=== PATIENT | female | born 1965 | race Caucasian/White ===

== ENCOUNTER 2019-01-08 20:09 | Emergency (ER) | payer OTHER, MEDICAID, SELFPAY ==
[2019-01-08 20:17] VITALS: BP 125/74; PULSE 91; RESP 22; TEMP 37.2; O2SAT 99
[2019-01-08 20:29] VITALS: BP 125/74; PULSE 91; RESP 22; TEMP 37.2; O2SAT 99
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
[2019-01-08 20:40] LABS: Add Manual Diff / Slide Review NO; Basophils Absolute Auto 0 /uL (0-100); Basophils Percent Auto 0.8 % (0-2); Eosinophils Absolute Auto 200 /uL (0-450); Eosinophils Percent Auto 2.5 % (2-4); Hematocrit 45.5 % (36-46); Hemoglobin 14.8 g/dL (12.0-16.0); Lymphocytes Absolute Auto 2400 /uL (1100-4500); Lymphocytes Percent Auto 38.6 % (25-40); Mean Corpuscular HGB Conc 32.6 % (30-36); Mean Corpuscular Hemoglobin 31.3 PG (26-34); Mean Corpuscular Volume 96.2 fL (80-100); Monocytes Absolute Auto 400 /uL (0-900); Monocytes Percent Auto 6.7 % (3-14); Neutrophils Absolute Auto 3300 /uL (1500-7000); Neutrophils Percent Auto 51.4 % (50-75); Platelet Count 239 X10^3/uL (150-400); Red Blood Cell Count 4.73 X10^6/uL (4.0-5.2); Red Cell Distribution Width 13.3 % (11.6-14.8); White Blood Cell Count 6.3 X10^3/uL (4.5-11.0)
[2019-01-08 20:52] LABS: Acetaminophen < 10 ug/mL (10-30); Alanine Aminotransferase 31 IU/L (9-52); Albumin 4.4 g/dL (3.5-5.0); Albumin Globulin Ratio 1.3 (1.0-2.8); Alkaline Phosphatase 85 U/L (38-126); Aspartate Aminotransferase 30 IU/L (14-36); BUN Creatinine Ratio 13.3 (6-22); Bilirubin Total 0.2 mg/dL (0.2-1.3); Blood Urea Nitrogen 8 mg/dL (7-17); Calcium 8.3 mg/dL (8.4-10.2); Carbon Dioxide 22 mmol/L (22-32); Chloride 108 mmol/L (98-107); Estimated Glomerular Filt Rate > 60.0 mL/min (>60); Ethanol (ETOH) 159 mg/dL; Globulin 3.4 g/dL (1.7-4.1); Glucose 86 mg/dL (70-100); HEMOLYSIS < 15 (0-50); Potassium 3.7 mmol/L (3.4-5.1); Salicylate < 1.0 mg/dL (<20); Sodium 145 mmol/L (137-145); Total Protein 7.8 g/dL (6.3-8.2)
--- NOTE | 2019-01-08 21:39 | PC.NURSE ---
Pt ambulated with steady gait back to pt room after giving urine specimen in bathroom. Pt was cooperative and apologized for her behavior earlier. Pt was given warm blanket and offered po hydration and snacks but declined.
[2019-01-08 22:07] LABS: Free T4, Direct Thyroxine 1.39 ng/dL (0.78-2.19)
[2019-01-08 22:12] LABS: Urine Amphetamines Positive (Negative); Urine Barbiturates Negative (Negative); Urine Benzodiazepines Negative (Negative); Urine Cocaine Negative (Negative); Urine MDMA Negative (Negative); Urine Methadone Negative (Negative); Urine Methamphetamines Negative (Negative); Urine Morphine/Opi cutoff 2000 Negative (Negative); Urine Oxycodone Negative (Negative); Urine Phencyclidine Negative (Negative); Urine Tetrahydrocannabinol Negative (Negative); Urine Tricyclic Antidepressant Negative (Negative)
[2019-01-08 22:19] LABS: Bacteria Urine Many (>30); Culture Indicated Urine Specimen Cultured; RBC Urine None Seen (0-5/HPF); Squamous Epithelial Cell Urine 0-1 /HPF (0-5/HPF); WBC Urine 0-1/HPF (0-5/HPF)
[2019-01-08 23:26] VITALS: BP 115/70; PULSE 81; RESP 18; TEMP 36.6; O2SAT 98
--- NOTE | 2019-01-08 23:40 | PC.NURSE ---
patient is clma and sleeping
--- NOTE | 2019-01-08 23:46 | PC.NURSE ---
patient is calm and trying to sleep
--- NOTE | 2019-01-09 | PC.NURSE ---
patient is released and calmly waiting on a cab
--- NOTE | 2019-01-09 00:14 | PC.NURSE ---
patient is discharged cab is here
== END 2019-01-09 00:15 | disposition home or self-care (01) ==
PROVIDERS: Emergency Provider Emergency Medicine; Family Provider Family Medicine; PCP Family Medicine
DX: F10.929 Alcohol use, unspecified with intoxication, unspecified (principal)
CPT/HCPCS: 80053; 80305; 80320; 80329; 81003; 81015; 81025; 84439; 84443; 85025; 87077; 87086; 87186; 99283; G0480

== ENCOUNTER → 2019-02-10 11:38 | Outpatient (CLI) | payer OTHER, MEDICAID, SELFPAY ==
[2019-02-10 13:08] LABS: Alanine Aminotransferase 28 IU/L (9-52); Albumin 4.3 g/dL (3.5-5.0); Albumin Globulin Ratio 1.4 (1.0-2.8); Alkaline Phosphatase 94 U/L (38-126); Aspartate Aminotransferase 25 IU/L (14-36); BUN Creatinine Ratio 15.7 (6-22); Bilirubin Total 0.8 mg/dL (0.2-1.3); Blood Urea Nitrogen 11 mg/dL (7-17); Calcium 10.1 mg/dL (8.4-10.2); Carbon Dioxide 30 mmol/L (22-32); Chloride 104 mmol/L (98-107); Estimated Glomerular Filt Rate > 60.0 mL/min (>60); Glucose 90 mg/dL (70-100); HEMOLYSIS < 15 (0-50); Sodium 141 mmol/L (137-145); Total Protein 7.3 g/dL (6.3-8.2)
[2019-02-10 13:23] LABS: Potassium 5.4 mmol/L (3.4-5.1)
[2019-02-10 13:38] LABS: TSH w/ Reflex to FT4 1.32 uIU/mL (0.47-4.68)
== END ==
PROVIDERS: PCP Family Medicine; Visit Provider Family Medicine
DX: Z51.81 Encounter for therapeutic drug level monitoring (principal); Z79.899 Other long term (current) drug therapy
CPT/HCPCS: 36415; 80053; 84443

== ENCOUNTER → 2019-02-28 10:33 | Outpatient (CLI) | payer OTHER, MEDICAID, SELFPAY ==
[2019-02-28 11:40] LABS: Lithium 0.5 mmol/L (0.6-1.2)
[2019-02-28 11:44] LABS: BUN Creatinine Ratio 14.3 (6-22); Blood Urea Nitrogen 10 mg/dL (7-17); Calcium 9.4 mg/dL (8.4-10.2); Carbon Dioxide 26 mmol/L (22-32); Chloride 106 mmol/L (98-107); Estimated Glomerular Filt Rate > 60.0 mL/min (>60); Glucose 80 mg/dL (70-100); HEMOLYSIS < 15 (0-50); Sodium 141 mmol/L (137-145)
[2019-02-28 11:46] LABS: Potassium 5.5 mmol/L (3.4-5.1)
[2019-02-28 12:12] LABS: TSH w/ Reflex to FT4 3.87 uIU/mL (0.47-4.68)
== END ==
PROVIDERS: PCP Family Medicine; Visit Provider Family Medicine
DX: F31.9 Bipolar disorder, unspecified (principal); Z79.899 Other long term (current) drug therapy
CPT/HCPCS: 36415; 80048; 80178; 84443

== ENCOUNTER → 2019-03-25 15:38 | Outpatient (CLI) | payer OTHER, MEDICAID, SELFPAY ==
[2019-03-25 16:20] LABS: BUN Creatinine Ratio 18.8 (6-22); Blood Urea Nitrogen 15 mg/dL (7-17); Calcium 9.4 mg/dL (8.4-10.2); Carbon Dioxide 27 mmol/L (22-32); Chloride 103 mmol/L (98-107); Estimated Glomerular Filt Rate > 60.0 mL/min (>60); Glucose 102 mg/dL (70-100); HEMOLYSIS < 15 (0-50); Potassium 4.5 mmol/L (3.4-5.1); Sodium 138 mmol/L (137-145)
[2019-03-25 17:57] LABS: Free T4, Direct Thyroxine 1.09 ng/dL (0.78-2.19)
[2019-03-25 18:11] LABS: Thyroid Stimulating Hormone 2.13 uIU/mL (0.47-4.68)
== END ==
PROVIDERS: PCP Family Medicine; Visit Provider Family Medicine
DX: F31.9 Bipolar disorder, unspecified (principal); Z79.899 Other long term (current) drug therapy
CPT/HCPCS: 36415; 80048; 84439; 84443; 84481

== ENCOUNTER 2019-04-07 09:57 | Day surgery (SDC) | payer OTHER, MEDICAID, SELFPAY ==
[2019-03-26 14:24] VITALS: BMI 29.3
[2019-04-07] VITALS (8 sets, daily range): BP systolic 98–131; BP diastolic 52–65; PULSE 50–76; RESP 12–20; TEMP 36.1–36.4; O2SAT 95–100; BMI 28.6
[2019-04-07] MEDS: LACTATED RINGERS 1,000 ML 100 ML IV ×2 (10:37→13:35)
--- NOTE | 2019-04-07 12:01 | PM.HP.1 ---
History of Present Illness Date Patient Seen: 04/07/19 Time Patient Seen: 12:01 Chief complaint: [id number] Narrative: The patient is a woman who had on a lump in her upper abdomen. Is chronic. She is here for repair of an incarcerated ventral hernia. Patient History Medical History Anxiety (Chronic ~2006) Asthma (Resolved) Chickenpox (Resolved ~1974) Ovarian cyst (Resolved ~1986) Surgical History History of removal of ovarian cyst (Resolved ~1985) Status post ORIF of fracture of ankle (Resolved ~1993) Tubal (Resolved ~1990) Anesthesia (Inactive) Status post delivery (~1986) Status post delivery (~1991) Family History Father Age: 87 Alcoholism Grandfather No problems noted. Grandmother No problems noted. Grandfather No problems noted. Grandmother No problems noted. Social History household members: family Smoking Status: Current every day smoker alcohol intake: current substance use type: does not use Family & Social History Family History Father Age: 87 Alcoholism Grandfather No problems noted. Grandmother No problems noted. Grandfather No problems noted. Grandmother No problems noted. Social History: household members family Tobacco & Substance use: Smoking Status Current every day smoker alcohol intake current Substance Use Type does not use Meds Home Medications Medication Instructions Recorded Confirmed Type albuterol sulfate [Ventolin HFA] 2 puff INH SEE INSTRUCTIONS PRN #1 05/24/17 02/18/19 Rx inh fluticasone propionate 1 spray INTRANASAL BID #16 gm 05/24/17 02/18/19 Rx polyethylene glycol 3350 [Miralax] 17 gm PO QDAY #1 can 08/01/17 02/18/19 Rx zolpidem 10 mg tablet 10 mg PO BEDTIME PRN #10 tab 02/10/19 02/18/19 Rx lithium carbonate 300 mg capsule 300 mg PO BID #60 cap 02/28/19 Rx Allergies Allergy/AdvReac Type Severity Reaction Status Date / Time No Known Drug Allergies Allergy Verified 04/07/19 10:39 Review of Systems Review of Systems All systems reviewed & are unremarkable except as noted in HPI and below Exam Vital Signs (past 8 hours): - 04/07/19 10:39 Temperature 97 F L Pulse Rate 50 L Respiratory Rate 20 Blood Pressure 98/58 L Pulse Oximetry 100 Oxygen Delivery Method Room Air Narrative Exam Narrative: No apparent distress. Lungs are clear to auscultation no rales or rhonchi heart regular rate and rhythm without murmur gallop. Abdomen is scaphoid and soft she has an incarcerated hernia between her umbilicus and xiphoid. Palpably mildly tender. No overlying redness. Patient is alert and oriented x3. Speech rate and content are appropriate. Assessment & Plan Assessment & Plan narrative: Ventral hernia for repair. I have discussed the procedure including possible use of mesh. Risks of bleeding infection recurrence discussed. She appears to understand wishes to proceed
--- NOTE | 2019-04-07 12:02 | PM.PREOP ---
Pre-operative Note Interval Note History & Physical reviewed/Exam performed by Physician: Yes Changes to H&P: No
[2019-04-07] MEDS: CEFAZOLIN 2 GM/100 ML FROZ.PIGGY IV (12:16)
--- NOTE | 2019-04-07 12:36 | SUR.OPER ---
Supine on padded OR bed, head on pillow, arms secured on padded arm boards at <90 degrees abduction, legs uncrossed, safety belt at thigh, tape over blanket over lower legs.
[2019-04-07] MEDS: BUPIVACAINE 0.5% (PF) VIAL 30 ML INJ (12:43)
--- NOTE | 2019-04-07 13:15 | PM.OP.1 ---
Operative Date/Time/Diagnoses Date of procedure: 04/07/19 Time of procedure: 13:00 Pre-op diagnosis: Incarcerated ventral hernia Post-op diagnosis: same Procedure & Clinicians Procedure: Primary repair of ventral incarcerated hernia Same procedure as scheduled: Yes Indications: Symptomatic hernia Surgeon: Urban Guy Click Yes if Unassisted: Yes Anesthesia Type: General Operative Notes Findings: Fat incarcerated in the hernia Closure Type: primary Specimen(s): none sent Estimated Blood Loss (mL): 5 Blood products transfused: none Procedure in detail: Patient was placed supine on the operating room table and underwent general LMA anesthesia. She was prepped and draped in the usual fashion. Local anesthetic was infiltrated and an incision made overlying the palpable hernia. It was dissected through subcu fat down to the hernia. The sac was opened and the contents were from surrounding edge of fascia and reduced. The fascial edge was cleared and repair undertaken. The defect was small and therefore did not attempt to place mesh. 1. Ethibond suture was used to repair the hernia. This was in interrupted [id number] sutures. Two were used. The subcu was closed with interrupted 3 0 Vicryl. The subcu was infiltrated with local anesthetic and the skin was closed with interrupted 4 0 Vicryl subcuticular stitches and Steri-Strips. Dressing was applied the patient was awakened extubated and taken recovery area in good condition. There were no apparent problems. Complications: none Condition: stable Disposition: PACU
[2019-04-07] MEDS: fentaNYL 100 MCG/2 ML INJ 50 MCG IV ×2 (13:17→13:24)
[2019-04-07] MEDS: OXYCODONE/ACETAMINOPHEN 5/325 TABLET 1 TAB PO (13:57)
== END 2019-04-07 14:26 | disposition home or self-care (01) ==
LOC: OR 09:58
PROVIDERS: PCP Family Medicine; Visit Provider Specialist
PROC: (CPT 49561; principal; 2019-04-07 12:00)
DX: K43.6 Other and unspecified ventral hernia with obstruction, without gangrene (principal); F41.9 Anxiety disorder, unspecified; J45.909 Unspecified asthma, uncomplicated
CPT/HCPCS: 49561; J0690; J1100; J2405; J2704; J3010

== ENCOUNTER → 2019-05-14 11:00 | Outpatient (CLI) | payer OTHER, MEDICAID, SELFPAY ==
[2019-05-14 12:15] LABS: Lithium 0.9 mmol/L (0.6-1.2)
[2019-05-14 12:17] LABS: BUN Creatinine Ratio 16.3 (6-22); Blood Urea Nitrogen 13 mg/dL (7-17); Calcium 9.5 mg/dL (8.4-10.2); Carbon Dioxide 29 mmol/L (22-32); Chloride 102 mmol/L (98-107); Estimated Glomerular Filt Rate > 60.0 mL/min (>60); Glucose 92 mg/dL (70-100); HEMOLYSIS < 15 (0-50); Sodium 140 mmol/L (137-145)
[2019-05-14 17:51] LABS: Free T4, Direct Thyroxine 0.95 ng/dL (0.78-2.19)
== END ==
PROVIDERS: PCP Family Medicine; Visit Provider Family Medicine
DX: F31.9 Bipolar disorder, unspecified (principal); Z79.899 Other long term (current) drug therapy; Z51.81 Encounter for therapeutic drug level monitoring
CPT/HCPCS: 36415; 80048; 80178; 84439; 84443

== ENCOUNTER → 2019-05-28 12:35 | Outpatient (CLI) | payer OTHER, MEDICAID, SELFPAY ==
[2019-05-28 13:30] LABS: BUN Creatinine Ratio 13.8 (6-22); Blood Urea Nitrogen 11 mg/dL (7-17); Calcium 9.8 mg/dL (8.4-10.2); Carbon Dioxide 28 mmol/L (22-32); Chloride 103 mmol/L (98-107); Estimated Glomerular Filt Rate > 60.0 mL/min (>60); Glucose 92 mg/dL (70-100); HEMOLYSIS < 15 (0-50); Potassium 4.9 mmol/L (3.4-5.1); Sodium 141 mmol/L (137-145)
[2019-05-28 13:54] LABS: Lithium 0.8 mmol/L (0.6-1.2)
[2019-05-28 14:11] LABS: Free T3, Triiodothyronine Free 2.74 pg/mL (2.77-5.27); Free T4, Direct Thyroxine 0.85 ng/dL (0.78-2.19)
== END ==
PROVIDERS: PCP Family Medicine; Visit Provider Family Medicine
DX: Z79.899 Other long term (current) drug therapy (principal)
CPT/HCPCS: 36415; 80048; 80178; 84439; 84443; 84481

== ENCOUNTER → 2019-06-24 14:50 | Outpatient (CLI) | payer OTHER, MEDICAID, SELFPAY ==
[2019-06-24 16:10] LABS: BUN Creatinine Ratio 18.6 (6-22); Blood Urea Nitrogen 13 mg/dL (7-17); Calcium 9.5 mg/dL (8.4-10.2); Carbon Dioxide 29 mmol/L (22-32); Chloride 101 mmol/L (98-107); Estimated Glomerular Filt Rate > 60.0 mL/min (>60); Glucose 83 mg/dL (70-100); HEMOLYSIS < 15 (0-50); Potassium 4.8 mmol/L (3.4-5.1); Sodium 140 mmol/L (137-145)
[2019-06-24 16:33] LABS: Free T3, Triiodothyronine Free 3.35 pg/mL (2.77-5.27); Free T4, Direct Thyroxine 1.05 ng/dL (0.78-2.19)
[2019-06-24 16:47] LABS: Thyroid Stimulating Hormone 3.49 uIU/mL (0.47-4.68)
[2019-06-27 13:36] LABS: Thyroid Peroxidase Antibodies 243 IU/mL (< 9)
[2019-06-29 15:04] LABS: Triiodothyronine T3 Reverse 16 ng/dL (8-25)
== END ==
PROVIDERS: Visit Provider Family Medicine
DX: E03.9 Hypothyroidism, unspecified (principal); Z79.899 Other long term (current) drug therapy
CPT/HCPCS: 36415; 80048; 84439; 84443; 84481; 84482; 86376

== ENCOUNTER → 2019-07-24 15:43 | Outpatient (CLI) | payer OTHER, MEDICAID, SELFPAY ==
[2019-07-24 17:08] LABS: BUN Creatinine Ratio 17.5 (6-22); Blood Urea Nitrogen 14 mg/dL (7-17); Calcium 9.6 mg/dL (8.4-10.2); Carbon Dioxide 28 mmol/L (22-32); Chloride 103 mmol/L (98-107); Estimated Glomerular Filt Rate > 60.0 mL/min (>60); Glucose 71 mg/dL (70-100); HEMOLYSIS < 15 (0-50); Potassium 4.6 mmol/L (3.4-5.1); Sodium 138 mmol/L (137-145)
[2019-07-24 18:14] LABS: Free T3, Triiodothyronine Free 2.71 pg/mL (2.77-5.27); Free T4, Direct Thyroxine 0.72 ng/dL (0.78-2.19)
[2019-07-24 18:28] LABS: Thyroid Stimulating Hormone 4.15 uIU/mL (0.47-4.68)
== END ==
PROVIDERS: Visit Provider Family Medicine
DX: E03.9 Hypothyroidism, unspecified (principal); Z79.899 Other long term (current) drug therapy
CPT/HCPCS: 36415; 80048; 84439; 84443; 84481

== ENCOUNTER → 2019-08-28 14:58 | Outpatient (CLI) | payer OTHER, MEDICAID, SELFPAY ==
[2019-08-28 16:52] LABS: Alanine Aminotransferase 22 IU/L (<35); Albumin 4.2 g/dL (3.5-5.0); Albumin Globulin Ratio 1.4 (1.0-2.8); Alkaline Phosphatase 84 U/L (38-126); Aspartate Aminotransferase 24 IU/L (14-36); BUN Creatinine Ratio 23.8 (6-22); Bilirubin Total 0.3 mg/dL (0.2-1.3); Blood Urea Nitrogen 19 mg/dL (7-17); Calcium 9.7 mg/dL (8.4-10.2); Carbon Dioxide 27 mmol/L (22-32); Chloride 104 mmol/L (98-107); Estimated Glomerular Filt Rate > 60.0 mL/min (>60); Globulin 2.9 g/dL (1.7-4.1); Glucose 79 mg/dL (70-100); HEMOLYSIS < 15 (0-50); Potassium 4.8 mmol/L (3.4-5.1); Sodium 140 mmol/L (137-145); Total Protein 7.1 g/dL (6.3-8.2)
[2019-08-28 17:08] LABS: Free T3, Triiodothyronine Free 2.88 pg/mL (2.77-5.27)
[2019-08-28 17:21] LABS: Thyroid Stimulating Hormone 2.03 uIU/mL (0.47-4.68)
[2019-08-30 16:07] LABS: Thyroid Peroxidase Antibodies 310 IU/mL (< 9)
== END ==
PROVIDERS: Visit Provider Family Medicine
DX: E03.9 Hypothyroidism, unspecified (principal); Z79.899 Other long term (current) drug therapy
CPT/HCPCS: 36415; 80053; 84439; 84443; 84481; 86376

== ENCOUNTER 2019-09-20 17:26 | Emergency (ER) | payer OTHER, MEDICAID, SELFPAY ==
[2019-09-20 17:30] VITALS: BP 114/63; PULSE 66; RESP 18; TEMP 35.8; O2SAT 100
--- NOTE | 2019-09-20 18:24 | ED_ITS ---
HPI - Dental/Oral General Chief complaint: Dental/Oral Stated complaint: dry mouth/ chemical tasting in mouth lt side Time Seen by Provider: 09/20/19 18:08 Source: patient Mode of arrival: Ambulatory Limitations: no limitations History of Present Illness HPI Narrative: 54-year-old female former smoker with history of bipolar presents with a chief complaint of a metallic taste in her mouth which has been present for least the past few days. She denies any new medications nor pain. Initially she presented to her dentist who performed a detailed examination glued [facility] imaging and states there is no dental cause of her symptoms, abscess or other. She does state that she has had some increasing epigastric discomfort and her symptoms seem to be worse when she lays flat. She denies any facial swelling or fever or chills. Onset (ago): day(s) Duration: constant Severity: moderate Relieving factors: nothing Exacerbating factors: other Treatment prior to arrival: none Related Data Home Medications Medication Instructions Recorded Confirmed lithium carbonate 300 mg capsule 300 mg PO BID 08/28/19 09/20/19 Previous Rx's Medication Instructions Recorded quetiapine 400 mg tablet See Rx Instructions PO BEDTIME #45 08/25/19 tab Allergies Allergy/AdvReac Type Severity Reaction Status Date / Time No Known Drug Allergies Allergy Verified 09/20/19 17:33 Review of Systems Constitutional Constitutional: Denies chills, Denies fatigue, Denies fever(s), Denies frequent falls, Denies lethargy and Denies weakness Eyes Eyes: Denies change in vision, Denies eye discharge, Denies irritation and Denies loss of vision ENT Ears, Nose, Mouth, and Throat: Denies change in voice, Denies dizziness, Denies neck pain, Denies sore throat and Denies throat swelling Comments: Metallic taste in mouth Cardiovascular Cardiovascular: Denies chest pain, Denies irregular heart rhythm, Denies lightheadedness, Denies palpitations, Denies dyspnea, Denies dyspnea on exertion and Denies orthopnea Respiratory Respiratory: Denies cough, Denies dyspnea, Denies dyspnea on exertion and Denies wheezing Gastrointestinal Gastrointestinal: Denies abdominal pain, Denies change in bowel habits, Denies diarrhea, Denies nausea and Denies vomiting Genitourinary Genitourinary: Denies hematuria, Denies flank pain, Denies urinary incontinence and Denies urinary urgency Musculoskeletal Musculoskeletal: Denies back pain, Denies muscle weakness, Denies neck pain, Denies numbness and Denies tingling Integumentary/Breasts Skin/Breast: Denies pruritus, Denies erythema, Denies rash and Denies wounds Neurologic Neurologic: Denies behavioral changes, Denies confusion, Denies dizziness, Denies frequent falls, Denies loss of vision, Denies numbness, Denies tingling and Denies weakness Psychiatric Psychiatric: Denies anxiety, Denies behavioral changes, Denies confusion, Denies depression, Denies homicidal ideation and Denies suicidal ideation Endocrine Endocrine: Denies fatigue, Denies flushing and Denies palpitations Hematologic/Lymphatic Hematologic/Lymphatic: Denies easy bruising Allergic/Immunologic Allergic/Immunologic: Denies urticaria, Denies throat swelling and Denies wheezing Patient History Medical History (Updated 09/20/19 @ 18:32 by Maciel Amin DO) Alcohol use disorder (Resolved) Anxiety (Chronic ~2006) Asthma (Resolved) Chickenpox (Resolved ~1974) Ovarian cyst (Resolved ~1986) Tobacco use disorder (Resolved) Tobacco use disorder, moderate, in early remission (Acute) Surgical History Anesthesia (Inactive) History of removal of ovarian cyst (Resolved ~1985) Status post delivery (~1986) Status post delivery (~1991) Status post ORIF of fracture of ankle (Resolved ~1993) Tubal (Resolved ~1990) Social History household members: family Smoking Status: Former smoker alcohol intake: current substance use type: does not use Smoking Status: Former smoker alcohol intake frequency: 0-2 drinks per day Substance Use Type: does not use Exam Narrative Exam Narrative: GEN: AOx3 and in mild distress EYES: Pupils are equal, round, and reactive to light and accommodation. Extraoccular muscles are intact bilaterally. There is no subconjunctival hemorrhage or exudate. ORAL: No intraoral infection, abscess, discoloration or other abnormal findings CHEST: Lungs are clear to auscultation bilaterally and free of wheezes, rales, or rhonchi. Heart rate is regular rhythm, there are no murmurs, clicks, rubs, or gallops. There is no chest wall tenderness. ABD: Abdomen is soft and nontender. There is no guarding or rebound. Bowel sounds are normal in all 4 quadrants. There is no mass or organomegaly. EXT: Full painless ROM of all extremities with no loss of sensation or strength. SKIN: Warm, pink, and dry. No erythema or rash Initial Vital Signs Initial Vital Signs: Vital Signs Temperature 96.5 F L 09/20/19 17:30 Pulse Rate 66 09/20/19 17:30 Respiratory Rate 18 09/20/19 17:30 Blood Pressure 114/63 09/20/19 17:30 Pulse Oximetry 100 09/20/19 17:30 Course Vital Signs Vital signs: Vital Signs - 8 hr 09/20/19 17:30 Temperature 96.5 F L Pulse Rate 66 Respiratory Rate 18 Blood Pressure 114/63 Pulse Oximetry 100 MDM - Dental/Oral MDM Narrative Medical decision making narrative: 54F with metallic taste and epigastric discomfort raises the question of exacerbation reflux. Patient does take lithium which may be playing a role. No sign of dental infection or abscess. Return precautions given and questions answered to her apparent satisfaction Discharge Plan Departure Patient Disposition: Home Clinical Impression: Acid reflux Qualifiers: Esophagitis presence: without esophagitis Qualified Code(s): K21.9 - Gastro- esophageal reflux disease without esophagitis Discharge Date/Time: 09/20/19 18:30 Instructions: DI for Gastroesophageal Reflux Disease (GERD) Activity Restrictions/Additional Instructions: *You have been diagnosed with [ metallic taste in mouth, likely from acid reflux or even your lithium] *What to do: *Take medications as directed: Consider over the counter antacid such as pepcid or zantac and avoid acidic foods as well as alcohol, nicotine, and caffeine *Follow up with your primary care provider in 2-3 days, call for an appointment. Let them know you were seen in the Emergency Department and that we ask that you be seen in follow up *Return to ER if you should have any new, worsening or concerning symptoms Prescriptions: No Action quetiapine [Seroquel] 400 mg tablet See Rx Instructions PO BEDTIME Qty: 45 RF: 1 lithium carbonate 300 mg capsule 300 mg PO BID RF: 0 Referrals: Zhanna Chavez DO [Primary Care Provider] -
--- NOTE | 2019-09-20 18:43 | PC.NURSE ---
states metallic taste in mouth. normal assessment
== END 2019-09-20 18:30 | disposition home or self-care (01) ==
PROVIDERS: Emergency Provider Emergency Medicine; PCP Family Medicine
DX: K21.9 Gastro-esophageal reflux disease without esophagitis (principal); R10.13 Epigastric pain; Z79.899 Other long term (current) drug therapy
CPT/HCPCS: 99281; 99282

== ENCOUNTER → 2020-03-23 09:11 | Outpatient (CLI) | payer OTHER, MEDICAID, SELFPAY ==
[2020-03-23 10:07] LABS: Hemoglobin A1C% w Est Avg Glu 5.3 % (4.0-6.0)
[2020-03-23 10:40] LABS: Alanine Aminotransferase 170 IU/L (<35); Albumin 4.3 g/dL (3.5-5.0); Albumin Globulin Ratio 1.4 (1.0-2.8); Alkaline Phosphatase 130 U/L (38-126); Aspartate Aminotransferase 104 IU/L (14-36); BUN Creatinine Ratio 23.3 (6-22); Bilirubin Total 0.4 mg/dL (0.2-1.3); Blood Urea Nitrogen 17 mg/dL (7-17); Calcium 9.8 mg/dL (8.4-10.2); Carbon Dioxide 28 mmol/L (22-32); Chloride 106 mmol/L (98-107); Cholesterol 172 mg/dL (140-199); Estimated Glomerular Filt Rate > 60.0 mL/min (>60); Globulin 3.1 g/dL (1.7-4.1); Glucose 95 mg/dL (70-100); HDL Cholesterol 80 mg/dL (40-60); HEMOLYSIS < 15 (0-50); LDL Cholesterol Calculated 63 mg/dL (<100); Potassium 4.9 mmol/L (3.4-5.1); Sodium 140 mmol/L (137-145); Total Protein 7.4 g/dL (6.3-8.2); Triglycerides 145 mg/dL (35-150)
[2020-03-23 10:58] LABS: Free T3, Triiodothyronine Free 2.39 pg/mL (2.77-5.27); Free T4, Direct Thyroxine 0.71 ng/dL (0.78-2.19)
[2020-03-23 11:15] LABS: Ferritin 28 ng/mL (11-264)
[2020-03-23 11:29] LABS: Vitamin B12 754 pg/mL (239-931)
[2020-03-29 08:11] LABS: Triiodothyronine T3 Reverse 15.4 ng/dL (9.2-24.1)
== END ==
PROVIDERS: PCP Family Medicine; Referring Provider Family Medicine; Visit Provider Family Medicine
DX: E03.9 Hypothyroidism, unspecified (principal); F10.21 Alcohol dependence, in remission; F31.9 Bipolar disorder, unspecified; Z79.899 Other long term (current) drug therapy
CPT/HCPCS: 36415; 80053; 80061; 82607; 82728; 83036; 84439; 84443; 84481; 84482

== ENCOUNTER 2020-04-28 15:41 | Emergency (ER) | payer OTHER, MEDICAID, SELFPAY ==
[2020-04-28] VITALS (9 sets, daily range): BP systolic 109–131; BP diastolic 54–62; PULSE 66–77; RESP 16–27; TEMP 36.4; O2SAT 97–100; BMI 29.9
[2020-04-28 17:02] LABS: Ur Creatinine Normal (Normal); Ur Specific Gravity Normal (Normal); Urine pH Normal (Normal)
[2020-04-28 17:03] LABS: UR Morphine/Opiate cutoff 300 Negative (Negative); Urine Amphetamines Negative (Negative); Urine Barbiturates Negative (Negative); Urine Benzodiazepines Negative (Negative); Urine Cocaine Negative (Negative); Urine MDMA Negative (Negative); Urine Methadone Negative (Negative); Urine Methamphetamines Negative (Negative); Urine Oxycodone Negative (Negative); Urine Phencyclidine Negative (Negative); Urine Tetrahydrocannabinol Negative (Negative); Urine Tricyclic Antidepressant Negative (Negative)
[2020-04-28 17:22] LABS: Add Manual Diff / Slide Review NO; Basophils Absolute Auto 100 /uL (0-100); Basophils Percent Auto 1.3 % (0-2); Eosinophils Absolute Auto 200 /uL (0-450); Eosinophils Percent Auto 3.2 % (2-4); Hematocrit 42.9 % (36-46); Hemoglobin 14.2 g/dL (12.0-16.0); Lymphocytes Absolute Auto 2400 /uL (1100-4500); Lymphocytes Percent Auto 34.8 % (25-40); Mean Corpuscular HGB Conc 33.1 % (30-36); Mean Corpuscular Hemoglobin 31.6 PG (26-34); Mean Corpuscular Volume 95.5 fL (80-100); Monocytes Absolute Auto 900 /uL (0-900); Monocytes Percent Auto 13.2 % (3-14); Neutrophils Absolute Auto 3200 /uL (1500-7000); Neutrophils Percent Auto 47.5 % (50-75); Platelet Count 247 X10^3/uL (150-400); Red Blood Cell Count 4.49 X10^6/uL (4.0-5.2); Red Cell Distribution Width 14.1 % (11.6-14.8); White Blood Cell Count 6.8 X10^3/uL (4.5-11.0)
--- NOTE | 2020-04-28 17:36 | PC.NURSE ---
APOLLO Chowdary in room speaking to patient
[2020-04-28 17:41] LABS: Acetaminophen < 10 ug/mL (10-30); Alanine Aminotransferase 80 IU/L (<35); Albumin 4.6 g/dL (3.5-5.0); Albumin Globulin Ratio 1.4 (1.0-2.8); Alkaline Phosphatase 126 U/L (38-126); Aspartate Aminotransferase 63 IU/L (14-36); BUN Creatinine Ratio 20.7 (6-22); Bilirubin Total 0.5 mg/dL (0.2-1.3); Blood Urea Nitrogen 17 mg/dL (7-17); Carbon Dioxide 25 mmol/L (22-32); Chloride 104 mmol/L (98-107); Estimated Glomerular Filt Rate > 60.0 mL/min (>60); Ethanol (ETOH) < 10 mg/dL; Globulin 3.4 g/dL (1.7-4.1); Glucose 103 mg/dL (70-100); HEMOLYSIS < 15 (0-50); Potassium 4.2 mmol/L (3.4-5.1); Salicylate < 1.0 mg/dL (<20); Sodium 136 mmol/L (137-145)
[2020-04-28 17:46] LABS: Lithium 0.4 mmol/L (0.6-1.2)
--- NOTE | 2020-04-28 17:53 | PC.NURSE ---
Pt ambulated to bathroom. Once back to the room pt became tearful and stated that she can't believe that she is here and this is like freaking suicide watch. Pt became agitated about the fact that she wont be home with her dog and that she has to stay in the hospital. Pt then requested something to help her sleep. Provider is aware
[2020-04-28] MEDS: LORazepam 0.5 MG TABLET 1 MG PO (18:01)
--- NOTE | 2020-04-28 18:01 | PC.NURSE ---
Poison control states this far out they wouldn't be worried about toxic levels.
--- NOTE | 2020-04-28 18:02 | PC.NURSE ---
Pt given PO ativan
[2020-04-28 18:21] LABS: Thyroid Stimulating Hormone 1.83 uIU/mL (0.47-4.68)
--- NOTE | 2020-04-28 18:49 | PC.NURSE ---
Johan Mobley on Pt 1:1 @ 18:45. Pt is calm and sitting up in bed
--- NOTE | 2020-04-28 18:51 | PC.NURSE ---
Pts father in the Rm at bedside talking with the Pt
[2020-04-28] MEDS: ONDANSETRON 4 MG ODT SL (19:12)
[2020-04-28] MEDS: hydrOXYzine pamoate 25 MG CAPSULE 50 MG PO (19:12)
--- NOTE | 2020-04-28 19:15 | PC.NURSE ---
Nurse in providing Anti nausea meds. Pt is talking to nurse and crying
--- NOTE | 2020-04-28 19:18 | PC.NURSE ---
Pt requesting to make a phone call to have someone help her Father get the Pts dog into the house
--- NOTE | 2020-04-28 19:26 | ED.OVERDOSE ---
HPI - Overdose <Judith Chowdary, MACHINE TACK PULLER-BC - Last Filed: 04/28/20 21:10> General Chief Complaint: Toxicology Problem Stated Complaint: took to much Lamictal Time Seen by Provider: 04/28/20 15:51 Source: patient Mode of arrival: Ambulatory Limitations: no limitations History of Present Illness HPI Narrative: The patient is a 54-year-old female with history of depression and bipolar who presents with a chief complaint of ?I took too much Lamictal.She states that she took it last night, took 550 mg pills between 10:00 p.m. and 5:00 a.m. in order to help herself sleep. She states that she has been able to sleep for at least 6 days at this point time, she received this new medication and thought it was for sleep. She denies any thoughts of hurting herself or anybody else. She denies any suicidal thoughts or suicidal ideations. She states that she loves her father and could never do that to him. She states she was sent from her primary care provider's office to have her ?heart checked after taking so much Lamictal. Poison Control was contacted by nursing, who states that the Lamictal because past. They state that the patient can be medically cleared now if there is no suicidal ideations. She may have a wide QRS on her EKG and needs to monitor for a rash. The patient presented denies any suicidal thoughts or ideations, though chart review illustrate that the patient tried to commit suicide last night by hanging. The patient repeatedly denied any thoughts of hurting herself or anybody else. Eventually the patient admitted that she ?took a rope last night and thought about attaching it to the banister. However she laughed because she did not think that the banister with jang and then she would fall. She denies any current thoughts of hurting herself, though admits that which she did last night was dangerous. She again denies any thoughts of hurting herself or anybody else, stating she wants to go home. She does state that she gets so tired sometimes and so frustrated with not being able to sleep that she has thoughts of hurting herself and that she ?feels crazy. Related Data Previous Rx's Medication Instructions Recorded levothyroxine 50 mcg tablet 50 mcg PO DAILY #90 tab 03/28/20 lithium carbonate 300 mg capsule 300 mg PO BID #60 cap 04/05/20 clonazepam 1 mg tablet 1 mg PO TID #10 tab 04/23/20 lamotrigine 100 mg tablet See Rx Instructions PO DAILY #49 04/23/20 tab Allergies Allergy/AdvReac Type Severity Reaction Status Date / Time No Known Drug Allergies Allergy Verified 04/23/20 09:47 Review of Systems <MARITA Diaz - Last Filed: 04/28/20 21:10> Review of Systems Narrative: GENERAL: Denies chills, fatigue, malaise, fever, sweats. HEENT: Denies sinus pain, ear pain, sore throat, difficulty swallowing, dizziness. RESPIRATORY: Denies dyspnea, cough, wheezing, hemoptysis, sputum. CARDIOVASCULAR: Denies chest pain, palpitations, orthopnea, edema, GASTROINTESTINAL: Denies nausea, vomiting, abdominal pain, diarrhea, constipation, melena. : Denies dysuria, frequency, incontinence, hematuria, urinary retention. MUSCULOSKELETAL: denies weakness, joint pain, or bony pain SKIN: Denies rash, skin lesions, or other NEUROLOGIC: Denies weakness, headache, numbness, change in speech, confusion, seizures, incoordination. PSYCHIATRIC: See HPI 12 point review of systems is negative except for those stated above Patient History <MARITA Diaz - Last Filed: 04/28/20 21:10> Medical History Alcohol use disorder (Resolved) Anxiety (Chronic ~2006) Asthma (Resolved) Chickenpox (Resolved ~1974) Ovarian cyst (Resolved ~1986) Tobacco use disorder (Resolved) Tobacco use disorder, moderate, in early remission (Acute) Surgical History Anesthesia (Inactive) History of removal of ovarian cyst (Resolved ~1985) Status post delivery (~1986) Status post delivery (~1991) Status post ORIF of fracture of ankle (Resolved ~1993) Tubal (Resolved ~1990) Family History Father Age: 88 Alcoholism Grandfather No problems noted. Grandmother No problems noted. Grandfather No problems noted. Grandmother No problems noted. Social History household members: family Smoking Status: Former smoker alcohol intake: current substance use type: does not use Smoking Status: Former smoker alcohol intake frequency: 0-2 drinks per day Substance Use Type: does not use Exam <MARITA Diaz - Last Filed: 04/28/20 21:10> Narrative Exam Narrative: GENERAL: This is a well-nourished, well-developed patient appears anxious HEAD: Atraumatic. Normocephalic. No temporal or scalp tenderness. EYES: Pupils equal round and reactive. Extraocular motions intact. No scleral icterus. No injection or drainage. ENT: Nose without bleeding, purulent drainage or septal hematoma. Throat without erythema, tonsillar hypertrophy or exudate. Uvula midline. Airway patent. NECK: Trachea midline. No JVD or lymphadenopathy. Supple, nontender, no meningeal signs. CARDIOVASCULAR: Regular rate and rhythm RESPIRATORY: Clear to auscultation. Breath sounds equal bilaterally. No wheezes, rales, or rhonchi. GASTROINTESTINAL: Abdomen soft, non-tender, nondistended. No hepato-splenomegaly, or palpable masses. No guarding. EXTREMITIES: No clubbing, cyanosis, or edema. No joint tenderness, effusion, or edema noted. BACK: Nontender without deformity or crepitance. No flank tenderness. NEURO: AOx3, pressured speech, tangential. Does endorse transit suicidal ideations. SKIN: No rash or erythema. Initial Vital Signs Initial Vital Signs: Vital Signs Temperature 97.5 F L 04/28/20 15:51 Pulse Rate 70 04/28/20 15:51 Respiratory Rate 20 04/28/20 15:51 Pulse Oximetry 99 04/28/20 15:51 <Zeeshan Mendoza MD - Last Filed: 04/29/20 00:01> Initial Vital Signs Initial Vital Signs: Vital Signs Temperature 97.5 F L 04/28/20 15:51 Pulse Rate 70 04/28/20 15:51 Respiratory Rate 20 04/28/20 15:51 Pulse Oximetry 99 04/28/20 15:51 Course <MARITA Diaz - Last Filed: 04/28/20 21:10> Orders Ordered: ED Orders 04/28/20 15:46 EKG-12 Lead Stat 04/28/20 16:43 Consult to [facility] [place] [facility] Support Technician Urgent 04/28/20 16:45 Urine Drug Screen, Rapid Stat 04/28/20 17:15 Acetaminophen Stat Complete Blood Count AUTO DIFF Stat Comprehensive Metabolic Panel Stat Ethanol (ETOH) Stat [place] Stat Salicylate Stat Thyroid Stimulating Hormone Stat Discontinued Medications Hydroxyzine Pamoate (Vistaril) 50 mg PO NOW ONE Stop: 04/28/20 18:47 Last Admin: 04/28/20 19:12 Dose: 50 mg Documented by: FRANKIE Lorazepam (Ativan) 1 mg PO NOW ONE Stop: 04/28/20 17:48 Last Admin: 04/28/20 18:01 Dose: 1 mg Documented by: UNIQUE Ondansetron HCl (Zofran Odt) 4 mg SL NOW ONE Stop: 04/28/20 18:47 Last Admin: 04/28/20 19:12 Dose: 4 mg Documented by: FRANKIE Consultations Consultation #1: I spoke with Dr Monreal, PCP and Dr. Ellington from Psychiatry who both recommend inpatient evaluation and stay for this patient, especially given the drastic measure that she took last night. Time: 16:30 Vital Signs Vital signs: Vital Signs - 8 hr 04/28/20 17:10 04/28/20 17:30 04/28/20 17:31 Pulse Rate 71 76 75 Respiratory Rate 22 22 18 Blood Pressure 112/54 L Pulse Oximetry 100 99 100 04/28/20 18:00 04/28/20 18:01 04/28/20 18:30 Pulse Rate 69 66 67 Respiratory Rate 19 20 16 Blood Pressure 131/58 L 109/59 L Pulse Oximetry 100 100 98 04/28/20 19:00 04/28/20 23:05 Pulse Rate 73 77 Respiratory Rate 27 H 16 Blood Pressure 120/58 L 118/62 Pulse Oximetry 99 97 <Zeeshan Mendoza MD - Last Filed: 04/29/20 00:01> Orders Ordered: ED Orders 04/28/20 15:46 EKG-12 Lead Stat 04/28/20 16:43 Consult to [facility] [place] System Support Technician Urgent 04/28/20 16:45 Urine Drug Screen, Rapid Stat 04/28/20 17:15 Acetaminophen Stat Complete Blood Count AUTO DIFF Stat Comprehensive Metabolic Panel Stat Ethanol (ETOH) Stat [place] Stat Salicylate Stat Thyroid Stimulating Hormone Stat Discontinued Medications Hydroxyzine Pamoate (Vistaril) 50 mg PO NOW ONE Stop: 04/28/20 18:47 Last Admin: 04/28/20 19:12 Dose: 50 mg Documented by: FRANKIE Lorazepam (Ativan) 1 mg PO NOW ONE Stop: 04/28/20 17:48 Last Admin: 04/28/20 18:01 Dose: 1 mg Documented by: UNIQUE Ondansetron HCl (Zofran Odt) 4 mg SL NOW ONE Stop: 04/28/20 18:47 Last Admin: 04/28/20 19:12 Dose: 4 mg Documented by: FRANKIE Reevaluation(s) Reevaluation #1: Spoke with patient regarding events of today and last night. She states that she denies denies denies any desire to hurt herself or others. She does not want to hang herself. She does not want to kill herself. She states that she loves her dog and her father too much. She states she took Lamictal in order to help her sleep because she has insomnia. She was just angry and was lashing out by having thoughts of hanging herself. Again, she denies denies wanting to hurt herself. Patient does have psychiatric provider. Does have good follow-up. She does not want to wait or talk to a family welfare social work professor in the morning. She desires discharge home. DCR has completed their evaluation and patient does not qualify to be held Time: 22:59 Consultations Consultation #1: DCR completed their assessment. Patient is not candidate to be placed on hold. HIRA has spoken with nursePayal, contract for safety was family attained Time: 22:59 Vital Signs Vital signs: Vital Signs - 8 hr 04/28/20 17:10 04/28/20 17:30 04/28/20 17:31 Pulse Rate 71 76 75 Respiratory Rate 22 22 18 Blood Pressure 112/54 L Pulse Oximetry 100 99 100 04/28/20 18:00 04/28/20 18:01 04/28/20 18:30 Pulse Rate 69 66 67 Respiratory Rate 19 20 16 Blood Pressure 131/58 L 109/59 L Pulse Oximetry 100 100 98 04/28/20 19:00 04/28/20 23:05 Pulse Rate 73 77 Respiratory Rate 27 H 16 Blood Pressure 120/58 L 118/62 Pulse Oximetry 99 97 MDM - Overdose <Judith ChowdaryLUIS ANGELP- - Last Filed: 04/28/20 21:10> Lab Data Result diagrams: 04/28/20 17:15 04/28/20 17:15 Labs: Lab Results 04/28/20 04/28/20 04/28/20 Range/Units 16:45 17:15 17:15 WBC 6.8 (4.5-11.0) X10^3/uL RBC 4.49 (4.0-5.2) X10^6/uL Hgb 14.2 (12.0-16.0) g/dL Hct 42.9 (36-46) % MCV 95.5 (80-100) fL MCH 31.6 (26-34) PG MCHC 33.1 (30-36) % RDW 14.1 (11.6-14.8) % Plt Count 247 (150-400) X10^3/uL Neut % (Auto) 47.5 L (50-75) % Lymph % (Auto) 34.8 (25-40) % Sevier % (Auto) 13.2 (3-14) % Eos % (Auto) 3.2 (2-4) % Baso % (Auto) 1.3 (0-2) % Neut # (Auto) 3200 (7164-6103) /uL Lymph # (Auto) 2400 (6013-7280) /uL Sevier # (Auto) 900 (0-900) /uL Eos # (Auto) 200 (0-450) /uL Baso # (Auto) 100 (0-100) /uL Sodium 136 L (137-145) mmol/L Potassium 4.2 (3.4-5.1) mmol/L Chloride 104 (98-107) mmol/L Carbon Dioxide 25 (22-32) mmol/L BUN 17 (7-17) mg/dL Creatinine 0.82 (0.52-1.04) mg/dL Estimated GFR > 60.0 (>60) mL/min BUN/Creatinine Ratio 20.7 (6-22) Glucose 103 H (70-100) mg/dL Calcium 9.0 (8.4-10.2) mg/dL Total Bilirubin 0.5 (0.2-1.3) mg/dL AST 63 H (14-36) IU/L ALT 80 H (<35) IU/L Alkaline Phosphatase 126 (38-126) U/L Total Protein 8.0 (6.3-8.2) g/dL Albumin 4.6 (3.5-5.0) g/dL Globulin 3.4 (1.7-4.1) g/dL Albumin/Globulin Ratio 1.4 (1.0-2.8) TSH (0.47-4.68) uIU/mL Salicylates < 1.0 (<20) mg/dL U Opiates 300ng/mL cut Negative (Negative) Ur Oxycodone Screen Negative (Negative) Urine Methadone Screen Negative (Negative) Acetaminophen < 10 L (10-30) ug/mL Ur Barbiturates Screen Negative (Negative) U Tricyclic Antidepress Negative (Negative) Ur Phencyclidine Scrn Negative (Negative) Ur Amphetamines Screen Negative (Negative) U Methamphetamines Scrn Negative (Negative) Ur MDMA Scrn (Ecstasy) Negative (Negative) U Benzodiazepines Scrn Negative (Negative) [place] (0.6-1.2) mmol/L Urine Cocaine Screen Negative (Negative) U Marijuana (THC) Screen Negative (Negative) Ethyl Alcohol < 10 ( - 10) mg/dL 04/28/20 Range/Units 17:15 WBC (4.5-11.0) X10^3/uL RBC (4.0-5.2) X10^6/uL Hgb (12.0-16.0) g/dL Hct (36-46) % MCV (80-100) fL MCH (26-34) PG MCHC (30-36) % RDW (11.6-14.8) % Plt Count (150-400) X10^3/uL Neut % (Auto) (50-75) % Lymph % (Auto) (25-40) % Sevier % (Auto) (3-14) % Eos % (Auto) (2-4) % Baso % (Auto) (0-2) % Neut # (Auto) (5732-7236) /uL Lymph # (Auto) (2741-7860) /uL Sevier # (Auto) (0-900) /uL Eos # (Auto) (0-450) /uL Baso # (Auto) (0-100) /uL Sodium (137-145) mmol/L Potassium (3.4-5.1) mmol/L Chloride (98-107) mmol/L Carbon Dioxide (22-32) mmol/L BUN (7-17) mg/dL Creatinine (0.52-1.04) mg/dL Estimated GFR (>60) mL/min BUN/Creatinine Ratio (6-22) Glucose (70-100) mg/dL Calcium (8.4-10.2) mg/dL Total Bilirubin (0.2-1.3) mg/dL AST (14-36) IU/L ALT (<35) IU/L Alkaline Phosphatase (38-126) U/L Total Protein (6.3-8.2) g/dL Albumin (3.5-5.0) g/dL Globulin (1.7-4.1) g/dL Albumin/Globulin Ratio (1.0-2.8) TSH 1.83 (0.47-4.68) uIU/mL Salicylates (<20) mg/dL U Opiates 300ng/mL cut (Negative) Ur Oxycodone Screen (Negative) Urine Methadone Screen (Negative) Acetaminophen (10-30) ug/mL Ur Barbiturates Screen (Negative) U Tricyclic Antidepress (Negative) Ur Phencyclidine Scrn (Negative) Ur Amphetamines Screen (Negative) U Methamphetamines Scrn (Negative) Ur MDMA Scrn (Ecstasy) (Negative) U Benzodiazepines Scrn (Negative) [place] 0.4 L (0.6-1.2) mmol/L Urine Cocaine Screen (Negative) U Marijuana (THC) Screen (Negative) Ethyl Alcohol ( - 10) mg/dL Urine Dip Bedside Urine Glucose Negative Bedside Urine Bilirubin - Negative Bedside Urine Ketone - Negative Urine Specific [place] 1.015 Bedside Urine Occult Blood - Negative Bedside Urine pH 6.0 Bedside Urine Protein - Negative Bedside Urine Urobilinogen - Negative Bedside Urine Nitrite - Negative Bedside Urine Leukocytes - Negative Esterase MDM Narrative Medical decision making narrative: The patient is a 54-year-old female who presents with a chief complaint of ?I took to much Lamictal. However chart review illustrate the patient tried to kill herself last night by hanging, which is especially concerning given her labile history, diagnosis, and the fact that she has multiple stories. I spoke with Dr. Ellington from psychiatry recommends that the patient have inpatient evaluation and treatment, which Dr. Chavez, the patient's PCP also agrees with. However the patient repeatedly wants to go home, so she was placed on one-to-one observation. The patient does comment that she ?took the rope but laughed because it was so long I would hit the ground.The patient remains tangential, pressured speech, on one-to-one. Paperwork was faxed to [facility]. Patient signed out to Dr. Mendoza at 9:00 p.m. with one-to-one in place. <Zeeshan Mendoza MD - Last Filed: 04/29/20 00:01> Lab Data Labs: Lab Results 04/28/20 04/28/20 04/28/20 Range/Units 16:45 17:15 17:15 WBC 6.8 (4.5-11.0) X10^3/uL RBC 4.49 (4.0-5.2) X10^6/uL Hgb 14.2 (12.0-16.0) g/dL Hct 42.9 (36-46) % MCV 95.5 (80-100) fL MCH 31.6 (26-34) PG MCHC 33.1 (30-36) % RDW 14.1 (11.6-14.8) % Plt Count 247 (150-400) X10^3/uL Neut % (Auto) 47.5 L (50-75) % Lymph % (Auto) 34.8 (25-40) % Sevier % (Auto) 13.2 (3-14) % Eos % (Auto) 3.2 (2-4) % Baso % (Auto) 1.3 (0-2) % Neut # (Auto) 3200 (8044-3319) /uL Lymph # (Auto) 2400 (0365-6755) /uL Sevier # (Auto) 900 (0-900) /uL Eos # (Auto) 200 (0-450) /uL Baso # (Auto) 100 (0-100) /uL Sodium 136 L (137-145) mmol/L Potassium 4.2 (3.4-5.1) mmol/L Chloride 104 (98-107) mmol/L Carbon Dioxide 25 (22-32) mmol/L BUN 17 (7-17) mg/dL Creatinine 0.82 (0.52-1.04) mg/dL Estimated GFR > 60.0 (>60) mL/min BUN/Creatinine Ratio 20.7 (6-22) Glucose 103 H (70-100) mg/dL Calcium 9.0 (8.4-10.2) mg/dL Total Bilirubin 0.5 (0.2-1.3) mg/dL AST 63 H (14-36) IU/L ALT 80 H (<35) IU/L Alkaline Phosphatase 126 (38-126) U/L Total Protein 8.0 (6.3-8.2) g/dL Albumin 4.6 (3.5-5.0) g/dL Globulin 3.4 (1.7-4.1) g/dL Albumin/Globulin Ratio 1.4 (1.0-2.8) TSH (0.47-4.68) uIU/mL Salicylates < 1.0 (<20) mg/dL U Opiates 300ng/mL cut Negative (Negative) Ur Oxycodone Screen Negative (Negative) Urine Methadone Screen Negative (Negative) Acetaminophen < 10 L (10-30) ug/mL Ur Barbiturates Screen Negative (Negative) U Tricyclic Antidepress Negative (Negative) Ur Phencyclidine Scrn Negative (Negative) Ur Amphetamines Screen Negative (Negative) U Methamphetamines Scrn Negative (Negative) Ur MDMA Scrn (Ecstasy) Negative (Negative) U Benzodiazepines Scrn Negative (Negative) [place] (0.6-1.2) mmol/L Urine Cocaine Screen Negative (Negative) U Marijuana (THC) Screen Negative (Negative) Ethyl Alcohol < 10 ( - 10) mg/dL 04/28/20 Range/Units 17:15 WBC (4.5-11.0) X10^3/uL RBC (4.0-5.2) X10^6/uL Hgb (12.0-16.0) g/dL Hct (36-46) % MCV (80-100) fL MCH (26-34) PG MCHC (30-36) % RDW (11.6-14.8) % Plt Count (150-400) X10^3/uL Neut % (Auto) (50-75) % Lymph % (Auto) (25-40) % Sevier % (Auto) (3-14) % Eos % (Auto) (2-4) % Baso % (Auto) (0-2) % Neut # (Auto) (3512-7926) /uL Lymph # (Auto) (6406-0812) /uL Sevier # (Auto) (0-900) /uL Eos # (Auto) (0-450) /uL Baso # (Auto) (0-100) /uL Sodium (137-145) mmol/L Potassium (3.4-5.1) mmol/L Chloride (98-107) mmol/L Carbon Dioxide (22-32) mmol/L BUN (7-17) mg/dL Creatinine (0.52-1.04) mg/dL Estimated GFR (>60) mL/min BUN/Creatinine Ratio (6-22) Glucose (70-100) mg/dL Calcium (8.4-10.2) mg/dL Total Bilirubin (0.2-1.3) mg/dL AST (14-36) IU/L ALT (<35) IU/L Alkaline Phosphatase (38-126) U/L Total Protein (6.3-8.2) g/dL Albumin (3.5-5.0) g/dL Globulin (1.7-4.1) g/dL Albumin/Globulin Ratio (1.0-2.8) TSH 1.83 (0.47-4.68) uIU/mL Salicylates (<20) mg/dL U Opiates 300ng/mL cut (Negative) Ur Oxycodone Screen (Negative) Urine Methadone Screen (Negative) Acetaminophen (10-30) ug/mL Ur Barbiturates Screen (Negative) U Tricyclic Antidepress (Negative) Ur Phencyclidine Scrn (Negative) Ur Amphetamines Screen (Negative) U Methamphetamines Scrn (Negative) Ur MDMA Scrn (Ecstasy) (Negative) U Benzodiazepines Scrn (Negative) [place] 0.4 L (0.6-1.2) mmol/L Urine Cocaine Screen (Negative) U Marijuana (THC) Screen (Negative) Ethyl Alcohol ( - 10) mg/dL Urine Dip Bedside Urine Glucose Negative Bedside Urine Bilirubin - Negative Bedside Urine Ketone - Negative Urine Specific [place] 1.015 Bedside Urine Occult Blood - Negative Bedside Urine pH 6.0 Bedside Urine Protein - Negative Bedside Urine Urobilinogen - Negative Bedside Urine Nitrite - Negative Bedside Urine Leukocytes - Negative Esterase MDM Narrative Medical decision making narrative: Sign-out from Judith manzano, awaiting DCR assessment. Disposition pending their evaluation. Currently patient denies denies any thoughts of hurting herself Discharge Plan Departure Patient Disposition: Home Clinical Impression: Bipolar 1 disorder, manic, mild Discharge Date/Time: 04/28/20 23:06 Instructions: DI for Bipolar Disorder Activity Restrictions/Additional Instructions: Only take your medications as instructed. Do not take more than instructed. See your therapist and psychiatrist and providers this week for recheck. Return immediately if worse or if any questions or concerns. Prescriptions: No Action levothyroxine 50 mcg tablet 50 mcg PO DAILY Qty: 90 RF: 0 lithium carbonate 300 mg capsule 300 mg PO BID Qty: 60 RF: 1 lamotrigine 100 mg tablet See Rx Instructions PO DAILY Qty: 49 RF: 0 clonazepam 1 mg tablet 1 mg PO TID Qty: 10 RF: 0 Referrals: Zhanna Chavez DO [Primary Care Provider] -
--- NOTE | 2020-04-28 19:29 | PC.NURSE ---
1600: Late entry. Spoke to Christina ChinoD at Poison Control regarding pt's ingestion of Lamictal 50mg x 5 tabs for 250mg total. States she took 1 tab around 2200, and took subsequent doses of 1 tab every few hours until around 0400 in attempt to go to sleep. Pt thought they were sleeping pills. Per Poison control, pt is outside the peak window for any harmful effects. Advised to obtain EKG for prolonged QT. Pt initially denies SI/HI. Upon further investigation of CREATIVE WRITER note from today, pt attempted to tie noose around neck and hang herself from her banister but states I knew the banister couldnt hold my weight so i knew it wasnt going to work also states i dont want to kill myself i have my father and my dog to take care of Judith Chowdary DNP made aware. CREATIVE WRITER consult ordered. Pt remains on cardiac monitoring at this time. Labs drawn. Medicated with Ativan for anxiousness. NAD.
--- NOTE | 2020-04-28 19:40 | PC.NURSE ---
Pt trying to call from , phone is not working
--- NOTE | 2020-04-28 19:49 | PC.NURSE ---
Pt talking to father on Nurse station Phone
--- NOTE | 2020-04-28 20:00 | PC.NURSE ---
Pt resting on gurney, preparing to sleep. Pt states I have had insomnia since I was a child, hopefully the meds help me sleep. Pt is in plesant mood after speaking with her father and getting someone to watch her dog for her.
--- NOTE | 2020-04-28 20:01 | PC.NURSE ---
CDR being paged out
--- NOTE | 2020-04-28 20:16 | PC.NURSE ---
Pt c/o having a headache. Pt provided warm blanket and cool cloth for Pt forehead. Nurse informed of Pt complaint of headache
--- NOTE | 2020-04-28 21:30 | PC.NURSE ---
Pt needed emesis bag. Pt used emesis bag
--- NOTE | 2020-04-28 21:45 | PC.NURSE ---
Pt on video call with DCR
--- NOTE | 2020-04-28 21:48 | PC.NURSE ---
Pt on the tablet for Zoom interview with Elan from DCR.
--- NOTE | 2020-04-28 21:54 | PC.NURSE ---
Pt just got off zoom call with Manav INIGUEZ. Pt verbally agrees to safety contract. DCR states that he will talk to DR about possible discharge. Pt currently vomiting due to chronic migraines. CLYDE burrows
--- NOTE | 2020-04-28 22:56 | PC.NURSE ---
in speaking with Pt
--- NOTE | 2020-04-28 22:59 | PC.NURSE ---
Spoke to Elan from D[facility]. reports pt does not qualify for involuntary placement and is refusing voluntary treatment. Elan and pt spoke about safety contract, continuing therapy, and close followup. Pt in agreement. awaiting fax from DCR outlining conversation. Dr Mendoza made aware and at bedside.
--- NOTE | 2020-04-28 23:00 | PC.NURSE ---
has finished speaking with Pt. Pt is getting dressed pending discharge
--- NOTE | 2020-04-28 23:04 | PC.NURSE ---
Pt has been discharged. End sitter 1:1
== END 2020-04-28 23:06 | disposition home or self-care (01) ==
PROVIDERS: Nurse Practitioner Family; Emergency Provider Emergency Medicine; PCP Family Medicine
DX: F31.11 Bipolar disorder, current episode manic without psychotic features, mild (principal); F31.10 Bipolar disorder, current episode manic without psychotic features, unspecified
CPT/HCPCS: 80053; 80178; 80305; 80320; 80329; 81003; 84443; 85025; 93005; 99284; G0480

== ENCOUNTER → 2020-05-04 16:00 | Outpatient (CLI) | payer OTHER, MEDICAID, SELFPAY ==
--- NOTE | 2020-05-04 16:02 | DI.RAD.S_ITS ---
PROCEDURE: XR CHEST 2V INDICATIONS: dry cough one week, dust inhalation TECHNIQUE: 2 views of the chest were acquired. COMPARISON: [facility], , CHEST 2 VIEW, 08/01/2016, 19:43. FINDINGS: Surgical changes and devices: None. Lungs and pleura: Lungs are relatively large in volume and show an interstitial prominence previously present. This may reflect a prior smoking history.. No pleural effusions or pneumothorax. Mediastinum: Mediastinal contours are normal. Heart size is normal. Bones and chest wall: No suspicious bony abnormalities. Soft tissues appear unremarkable. IMPRESSION: No focal pneumonia found but there is a mild interstitial prominence that may reflect a prior smoking history. Reported potential inhalation injury-allergic alveolitis also could produce this appearance. Dictated by: Go Robb M.D. on 05/04/2020 at 16:27 Approved by: Go Robb M.D. on 05/04/2020 at 16:28
== END ==
PROVIDERS: PCP Family Medicine; Referring Provider Nurse Practitioner; Visit Provider Nurse Practitioner
DX: R05 Cough (principal)
CPT/HCPCS: 71046

== ENCOUNTER 2020-06-07 15:50 | Emergency (ER) | payer OTHER, MEDICAID, SELFPAY ==
[2020-06-07] VITALS (7 sets, daily range): BP systolic 107–122; BP diastolic 59–68; PULSE 52–61; RESP 22; TEMP 36.3; O2SAT 99–100
--- NOTE | 2020-06-07 15:57 | DI.RAD.S_ITS ---
PROCEDURE: XR CHEST 1V INDICATIONS: chest pain TECHNIQUE: One view of the chest was acquired. COMPARISON: [facility], , XR CHEST 2V, 05/04/2020, 15:55. [facility], , CHEST 2 VIEW, 08/01/2016, 19:43. FINDINGS: Surgical changes and devices: None. Lungs and pleura: Lungs are clear. No pleural effusions or pneumothorax. Mediastinum: Mediastinal contours appear normal. Heart size is normal. Bones and chest wall: No suspicious bony lesions. Overlying soft tissues appear unremarkable. IMPRESSION: Normal for age, source of current chest pain symptoms is not seen. Dictated by: Go Robb M.D. on 06/07/2020 at 16:18 Approved by: Go Robb M.D. on 06/07/2020 at 16:19
--- NOTE | 2020-06-07 16:15 | DI.US.S_ITS ---
PROCEDURE: US PERIPH VENOUS LOW EXTREM LT INDICATIONS: SWELLING TECHNIQUE: Real-time imaging, as well as color and pulse Doppler interrogation, were performed of the lower extremity deep veins from the inguinal ligament to the popliteal fossa. COMPARISON: [facility], CR, XR CHEST 1V, 06/07/2020, 16:02. FINDINGS: The common femoral, femoral and popliteal veins are normally compressible, and free of intraluminal thrombus. Color and pulse Doppler demonstrate normal phasic intraluminal flow. There is normal augmentation response to distal compression maneuver. IMPRESSION: Negative for deep venous thrombosis. Dictated by: Kash Santos M.D. on 06/07/2020 at 15:54 Approved by: Kash Santos M.D. on 06/07/2020 at 15:54
[2020-06-07 16:18] LABS: Add Manual Diff / Slide Review NO; Basophils Absolute Auto 100 /uL (0-100); Basophils Percent Auto 0.7 % (0-2); Eosinophils Absolute Auto 100 /uL (0-450); Eosinophils Percent Auto 1.4 % (2-4); Hematocrit 42.9 % (36-46); Hemoglobin 14.4 g/dL (12.0-16.0); Lymphocytes Absolute Auto 2500 /uL (1100-4500); Lymphocytes Percent Auto 32.2 % (25-40); Mean Corpuscular HGB Conc 33.6 % (30-36); Mean Corpuscular Volume 95.2 fL (80-100); Monocytes Absolute Auto 600 /uL (0-900); Monocytes Percent Auto 7.6 % (3-14); Neutrophils Absolute Auto 4500 /uL (1500-7000); Neutrophils Percent Auto 58.1 % (50-75); Platelet Count 232 X10^3/uL (150-400); White Blood Cell Count 7.7 X10^3/uL (4.5-11.0)
--- NOTE | 2020-06-07 16:19 | ED_ITS ---
HPI - Chest Pain General Chief Complaint: Chest Pain Stated Complaint: Swelling On Left Side, Tightness In Chest Time Seen by Provider: 06/07/20 16:02 Source: patient Mode of arrival: Ambulatory Limitations: no limitations History of Present Illness HPI narrative: The patient is a 55-year-old who presents with left leg swelling. She did well to [place] 2 weeks ago since then she has had left leg swelling off and on. It does not seem to be related to elevation. She denies any chest pain or shortness of breath. She now states that today she had left hand swelling that came on suddenly but now seems to have resolved. She denies any fever or chills. No productive cough. Related Data Previous Rx's Medication Instructions Recorded lithium carbonate 300 mg capsule 300 mg PO BID #60 cap 04/05/20 albuterol sulfate 90 mcg/actuation 2 puff INHALATION Q6H PRN #8 gram 05/04/20 aerosol inhaler inhalational spacing device #1 each 05/04/20 levothyroxine 50 mcg tablet 50 mcg PO DAILY #90 tab 05/26/20 prazosin 2 mg capsule 2 mg PO BEDTIME #30 cap 05/26/20 ziprasidone HCl 80 mg capsule 80 mg PO QPM #30 cap 05/26/20 Allergies Allergy/AdvReac Type Severity Reaction Status Date / Time No Known Drug Allergies Allergy Verified 05/26/20 16:00 Review of Systems Review of Systems ROS Unobtainable: All systems reviewed & are unremarkable except as noted in HPI and below Constitutional Constitutional: Denies chills, Denies fever(s), Denies lethargy and Denies weakness Cardiovascular Cardiovascular: Reports as per HPI, Denies chest pain, Denies irregular heart rhythm, Reports leg edema, Denies lightheadedness, Denies palpitations, Denies dyspnea, Denies dyspnea on exertion and Denies orthopnea Respiratory Respiratory: Denies cough, Denies dyspnea, Denies dyspnea on exertion and Denies wheezing Gastrointestinal Gastrointestinal: Denies abdominal pain, Denies change in bowel habits, Denies diarrhea, Denies nausea and Denies vomiting Musculoskeletal Musculoskeletal: Reports system reviewed and no additional complaints, except as documented, Denies arthralgias and Denies joint swelling Integumentary/Breasts Skin/Breast: Denies pruritus, Denies erythema, Denies rash and Denies wounds Neurologic Neurologic: Denies weakness Endocrine Endocrine: Denies palpitations Allergic/Immunologic Allergic/Immunologic: Denies wheezing Patient History Medical History Alcohol use disorder (Resolved) Anxiety (Chronic ~2006) Asthma (Resolved) Chickenpox (Resolved ~1974) Nightmares (Acute) Ovarian cyst (Resolved ~1986) Tobacco use disorder (Resolved) Tobacco use disorder, moderate, in early remission (Acute) Surgical History Anesthesia (Inactive) History of removal of ovarian cyst (Resolved ~1985) Status post delivery (~1986) Status post delivery (~1991) Status post ORIF of fracture of ankle (Resolved ~1993) Tubal (Resolved ~1990) Family History Father Age: 88 Alcoholism Grandfather No problems noted. Grandmother No problems noted. Grandfather No problems noted. Grandmother No problems noted. Social History household members: family Smoking Status: Former smoker alcohol intake: current substance use type: does not use Smoking Status: Former smoker alcohol intake frequency: 0-2 drinks per day Substance Use Type: does not use Exam Initial Vital Signs Initial Vital Signs: Vital Signs Temperature 97.4 F L 06/07/20 16:08 Pulse Rate 57 L 06/07/20 16:08 Respiratory Rate 22 06/07/20 16:08 Blood Pressure 107/68 06/07/20 16:08 Pulse Oximetry 100 06/07/20 16:08 GENERAL: Alert pleasant female and in no acute distress. HEENT: Head atraumatic,EOMI, pupils reactive, face symmetric, moist mucous membranes CARDIOVASCULAR: Regular rate and rhythm without murmurs, rubs or gallops. RESPIRATORY: Breath sounds equal bilaterally, no wheezes rales or rhonchi. ABDOMEN: Soft, nontender. Normoactive bowel sounds all 4 quadrants. No guarding or rebound. EXTREMITIES: Normal range of motion, no clubbing. Mild left leg lower extremity edema no calf pain Neurovascularly intact NEUROLOGICAL: Alert and oriented x4.Normal gait and speech. Cranial nerves II through XII grossly intact. SKIN: Warm, dry, no laceration, no petechiae, no rashes or lesions. Course Orders Ordered: ED Orders 06/07/20 15:57 XR chest 1V Stat EKG-12 Lead Stat 06/07/20 16:05 Complete Blood Count AUTO DIFF Stat Comprehensive Metabolic Panel Stat Lipase Stat NT-proBNP (BNP-Adult 18+) Stat Partial Thromboplastin Time Stat Prothrombin Time INR Stat Troponin & CK Cardiac Panel Stat 06/07/20 16:15 US periph venous low extrem lt Stat Vital Signs Vital signs: Vital Signs - 8 hr 06/07/20 16:08 06/07/20 16:11 06/07/20 16:30 Temperature 97.4 F L Pulse Rate 57 L 61 52 L Respiratory Rate 22 Blood Pressure 107/68 Pulse Oximetry 100 99 100 06/07/20 17:00 Temperature Pulse Rate 53 L Respiratory Rate Blood Pressure Pulse Oximetry 99 MDM - Chest Pain Lab Data Attestation: I reviewed the patient's lab results. Result diagrams: 06/07/20 16:05 06/07/20 16:05 Labs: Lab Results 06/07/20 06/07/20 06/07/20 Range/Units 16:05 16:05 16:05 WBC 7.7 (4.5-11.0) X10^3/uL RBC 4.50 (4.0-5.2) X10^6/uL Hgb 14.4 (12.0-16.0) g/dL Hct 42.9 (36-46) % MCV 95.2 (80-100) fL MCH 32.0 (26-34) PG MCHC 33.6 (30-36) % RDW 14.0 (11.6-14.8) % Plt Count 232 (150-400) X10^3/uL Neut % (Auto) 58.1 (50-75) % Lymph % (Auto) 32.2 (25-40) % [place] % (Auto) 7.6 (3-14) % Eos % (Auto) 1.4 L (2-4) % Baso % (Auto) 0.7 (0-2) % Neut # (Auto) 4500 (9742-9046) /uL Lymph # (Auto) 2500 (2287-9779) /uL [place] # (Auto) 600 (0-900) /uL Eos # (Auto) 100 (0-450) /uL Baso # (Auto) 100 (0-100) /uL PT 11.4 (10.1-12.7) SECONDS INR 1.0 (0.9-1.3) APTT 30 (26.4-36.2) SECONDS Sodium 141 (137-145) mmol/L Potassium 4.0 (3.4-5.1) mmol/L Chloride 108 H (98-107) mmol/L Carbon Dioxide 28 (22-32) mmol/L BUN 13 (7-17) mg/dL Creatinine 0.97 (0.52-1.04) mg/dL Estimated GFR > 60.0 (>60) mL/min BUN/Creatinine Ratio 13.4 (6-22) Glucose 97 (70-100) mg/dL Calcium 9.3 (8.4-10.2) mg/dL Total Bilirubin 0.5 (0.2-1.3) mg/dL AST 57 H (14-36) IU/L ALT 53 H (<35) IU/L Alkaline Phosphatase 97 (38-126) U/L Total Creatine Kinase 74 (30-135) U/L CK-MB (CK-2) TNP CK-MB (CK-2) Rel Index TNP Troponin I < 0.012 (0.01-0.034) ng/mL NT-Pro-B Natriuret Pep (<125) pg/mL Total Protein 7.3 (6.3-8.2) g/dL Albumin 4.4 (3.5-5.0) g/dL Globulin 2.9 (1.7-4.1) g/dL Albumin/Globulin Ratio 1.5 (1.0-2.8) Lipase 94 (23-300) U/L 06/07/ Range/Units 16:05 WBC (4.5-11.0) X10^3/uL RBC (4.0-5.2) X10^6/uL Hgb (12.0-16.0) g/dL Hct (36-46) % MCV (80-100) fL MCH (26-34) PG MCHC (30-36) % RDW (11.6-14.8) % Plt Count (150-400) X10^3/uL Neut % (Auto) (50-75) % Lymph % (Auto) (25-40) % [place] % (Auto) (3-14) % Eos % (Auto) (2-4) % Baso % (Auto) (0-2) % Neut # (Auto) (0115-5079) /uL Lymph # (Auto) (4714-5646) /uL [place] # (Auto) (0-900) /uL Eos # (Auto) (0-450) /uL Baso # (Auto) (0-100) /uL PT (10.1-12.7) SECONDS INR (0.9-1.3) APTT (26.4-36.2) SECONDS Sodium (137-145) mmol/L Potassium (3.4-5.1) mmol/L Chloride (98-107) mmol/L Carbon Dioxide (22-32) mmol/L BUN (7-17) mg/dL Creatinine (0.52-1.04) mg/dL Estimated GFR (>60) mL/min BUN/Creatinine Ratio (6-22) Glucose (70-100) mg/dL Calcium (8.4-10.2) mg/dL Total Bilirubin (0.2-1.3) mg/dL AST (14-36) IU/L ALT (<35) IU/L Alkaline Phosphatase (38-126) U/L Total Creatine Kinase (30-135) U/L CK-MB (CK-2) CK-MB (CK-2) Rel Index Troponin I (0.01-0.034) ng/mL NT-Pro-B Natriuret Pep 68 (<125) pg/mL Total Protein (6.3-8.2) g/dL Albumin (3.5-5.0) g/dL Globulin (1.7-4.1) g/dL Albumin/Globulin Ratio (1.0-2.8) Lipase (23-300) U/L Imaging Data US - DVT: Radiologist's Impression: PROCEDURE: US PERIPH VENOUS LOW EXTREM LT INDICATIONS: SWELLING TECHNIQUE: Real-time imaging, as well as color and pulse Doppler interrogation, were performed of the lower extremity deep veins from the inguinal ligament to the popliteal fossa. COMPARISON: [facility], CR, XR CHEST 1V, 06/07/2020, 16:02. FINDINGS: The common femoral, femoral and popliteal veins are normally compressible, and free of intraluminal thrombus. Color and pulse Doppler demonstrate normal phasic intraluminal flow. There is normal augmentation response to distal compression maneuver. IMPRESSION: Negative for deep venous thrombosis. Dictated by: Kash Santos M.D. on 06/07/2020 at 15:54 Chest x-ray: Radiologist's Impression: PROCEDURE: XR CHEST 1V INDICATIONS: chest pain TECHNIQUE: One view of the chest was acquired. COMPARISON: [facility], , XR CHEST 2V, 05/04/2020, 15:55. [facility], CR, CHEST 2 VIEW, 08/01/2016, 19:43. FINDINGS: Surgical changes and devices: None. Lungs and pleura: Lungs are clear. No pleural effusions or pneumothorax. Mediastinum: Mediastinal contours appear normal. Heart size is normal. Bones and chest wall: No suspicious bony lesions. Overlying soft tissues appear unremarkable. IMPRESSION: Normal for age, source of current chest pain symptoms is not seen. Dictated by: Go Robb M.D. on 06/07/2020 at 16:18 Approved by: Go Robb M.D. on 06/07/2020 at 16:19 ECG Data Attestation: I personally reviewed and interpreted this ECG as follows: Prior ECG tracings: available for review Interpretation: Rhythm rate 57 p.r. interval 158 QRS [address] changes similar to previous EKG MDM Narrative Medical decision making narrative: At this time she has mild swelling of her left lower leg but no significant swelling in any other part of her body. BNP is negative no dyspnea complaints. At this time recommend outpatient follow-up Discharge Plan Departure Patient Disposition: Home Clinical Impression: Edema, peripheral Instructions: DI for Peripheral Edema-Unilateral Activity Restrictions/Additional Instructions: *You have been diagnosed with edema *What to do: At this time there is no evidence of significant water retention or blood clot. Recommend following up with her primary care provider *Continue to take medications as directed *Follow up with your primary care provider in 2-3 days *Return to ER if you should have increased swelling, weakness numbness tingling or shortness of breath or any new, worsening or concerning symptoms Prescriptions: No Action albuterol sulfate 90 mcg/actuation HFA aerosol inhaler 2 puff INHALATION Q6H PRN (Reason: shortness of breath or wheezing) Qty: 8 RF: 0 (DME) [employer] See Rx Instructions .ROUTE .MEDSUPPLY Qty: 1 RF: 0 prazosin 2 mg capsule 2 mg PO BEDTIME Qty: 30 RF: 1 ziprasidone HCl 80 mg capsule 80 mg PO QPM Qty: 30 RF: 1 levothyroxine 50 mcg tablet 50 mcg PO DAILY Qty: 90 RF: 0 lithium carbonate 300 mg capsule 300 mg PO BID Qty: 60 RF: 1 Referrals: Zhanna Chavez DO [Primary Care Provider] -
[2020-06-07 16:30] LABS: Prothrombin Time 11.4 SECONDS (10.1-12.7)
[2020-06-07 16:33] LABS: PTT Partial Thromboplastin Tim 30 SECONDS (26.4-36.2)
[2020-06-07 16:34] LABS: Alanine Aminotransferase 53 IU/L (<35); Albumin 4.4 g/dL (3.5-5.0); Albumin Globulin Ratio 1.5 (1.0-2.8); Alkaline Phosphatase 97 U/L (38-126); Aspartate Aminotransferase 57 IU/L (14-36); BUN Creatinine Ratio 13.4 (6-22); Bilirubin Total 0.5 mg/dL (0.2-1.3); Blood Urea Nitrogen 13 mg/dL (7-17); Calcium 9.3 mg/dL (8.4-10.2); Carbon Dioxide 28 mmol/L (22-32); Chloride 108 mmol/L (98-107); Creatine Kinase 74 U/L (30-135); Estimated Glomerular Filt Rate > 60.0 mL/min (>60); Globulin 2.9 g/dL (1.7-4.1); Glucose 97 mg/dL (70-100); HEMOLYSIS < 15 (0-50); Lipase 94 U/L (23-300); Sodium 141 mmol/L (137-145); Total Protein 7.3 g/dL (6.3-8.2)
[2020-06-07 16:46] LABS: Troponin I < 0.012 ng/mL (0.01-0.034)
[2020-06-07 17:34] LABS: NT-proBNP (BNP-Adult 18+) 68 pg/mL (<125)
== END 2020-06-07 17:53 | disposition home or self-care (01) ==
PROVIDERS: Emergency Provider Emergency Medicine; PCP Family Medicine
DX: R60.9 Edema, unspecified (principal)
CPT/HCPCS: 36415; 71045; 80053; 82550; 83690; 83880; 84484; 85025; 85610; 85730; 93005; 93971; 99284

== ENCOUNTER 2020-06-10 19:25 | Emergency (ER) | payer OTHER, MEDICAID, SELFPAY ==
[2020-06-10 19:46] VITALS: BP 137/63; PULSE 50; RESP 15; TEMP 36.9; O2SAT 100; BMI 33.3
== END 2020-06-10 19:55 | disposition left against medical advice (07) ==
PROVIDERS: Emergency Provider Emergency Medicine; PCP Family Medicine
CPT/HCPCS: 99281

== ENCOUNTER → 2020-06-11 11:41 | Outpatient (CLI) | payer OTHER, MEDICAID, SELFPAY ==
--- NOTE | 2020-06-11 11:44 | DI.RAD.S_ITS ---
PROCEDURE: XR LUMBAR SPINE 2-3V INDICATIONS: Low back and left radiculopathy no trauma TECHNIQUE: 3 views of the lumbar spine were acquired. COMPARISON: [facility], , ABDOMEN 1 VIEW, 08/10/2017, 10:02. FINDINGS: Bones: 5 [id number] vertebrae are present. There is normal bony alignment. No vertebral body compression fractures. No suspicious bony lesions. Mild multilevel disc degeneration and mild facet joint arthropathy at the L4-L5 and L5-S1 levels. Soft tissues: Overlying bowel gas pattern is normal. No suspicious soft tissue calcifications. IMPRESSION: 1. Mild multilevel spondylosis. 2. Right upper quadrant calcification which could represent a gallstone. If indicated, gallbladder ultrasound could be performed. Dictated by: Rajat CATALAN Interpreted: Chase Neal MD on 06/11/2020 at 13:10 Approved by: Chase Neal M.D. on 06/11/2020 at 17:03
--- NOTE | 2020-06-11 11:44 | DI.RAD.S_ITS ---
PROCEDURE: XR FEMUR LT MIN 2V INDICATIONS: left thigh pain no trauma TECHNIQUE: 2 views of the femur were acquired. COMPARISON: None. FINDINGS: Bones: No fractures or dislocations. No suspicious bony lesions. Soft tissues: No suspicious soft tissue calcifications or masses. IMPRESSION: No definite radiographic abnormality. If pain persists with conservative management, consider cross sectional imaging such as CT or MRI for further assessment. Dictated by: Rajat Fine [facility] Interpreted: Chase Neal MD on 06/11/2020 at 13:09 Approved by: Chase Neal M.D. on 06/11/2020 at 17:03
== END ==
PROVIDERS: PCP Family Medicine; Referring Provider Family Medicine; Visit Provider Family Medicine
DX: M54.5 Low back pain (principal); M79.605 Pain in left leg; R60.9 Edema, unspecified
CPT/HCPCS: 72100; 73552

== ENCOUNTER → 2020-06-14 10:35 | Outpatient (CLI) | payer OTHER, MEDICAID, SELFPAY ==
[2020-06-14 12:08] LABS: TSH w/ Reflex to FT4 3.46 uIU/mL (0.47-4.68)
[2020-06-16 21:07] LABS: ANA Screen, IFA Positive (.)
== END ==
PROVIDERS: PCP Family Medicine; Referring Provider Family Medicine; Visit Provider Family Medicine
DX: R60.0 Localized edema (principal)
CPT/HCPCS: 36415; 84443; 86038

== ENCOUNTER → 2020-06-25 10:38 | Outpatient (CLI) | payer OTHER, MEDICAID, SELFPAY ==
--- NOTE | 2020-06-25 10:39 | DI.CT.S_ITS ---
PROCEDURE: CT ABDOMEN W CON INDICATIONS: Upper abd mass of uncertain cause in area of prior hernia TECHNIQUE: After the administration of oral and intravenous contrast, 5 mm thick sections acquired from the diaphragms to the iliac crests. 5 mm thick coronal and sagittal reformats were acquired. For radiation dose reduction, the following was used: automated exposure control, adjustment of mA and/or kV according to patient size. COMPARISON: None. FINDINGS: Image quality: Excellent. Lung bases: Lung bases are clear. Heart size is normal. Solid organs: Liver is normal in size and enhancement. Gallbladder is not distended. Calcified gallstone. Biliary system is non dilated. Pancreas enhances normally. Spleen is normal in size and enhancement. No adrenal nodules. Kidneys are normal in size, without hydronephrosis. Peritoneum and bowel: Contrast enhanced bowel loops appear normal in caliber. No free fluid or air. Appendix partially visualized. Nodes and vessels: No retroperitoneal or mesenteric adenopathy by size criteria. Aorta and inferior vena cava are normal in size. Bones: No suspicious bony lesions. No vertebral body compression fractures. Miscellaneous: Small supraumbilical fat containing midline ventral abdominal wall hernia. The hernia neck measures 2.2 cm, (2/32). IMPRESSION: 1. Small supraumbilical fat containing ventral abdominal wall hernia. 2. Cholelithiasis. Dictated by: Gael Palacios M.D. on 06/25/2020 at 13:25 Approved by: Gael Palacios M.D. on 06/25/2020 at 13:36
== END ==
PROVIDERS: PCP Family Medicine; Referring Provider Family Medicine; Visit Provider Specialist
DX: K42.9 Umbilical hernia without obstruction or gangrene (principal); R22.2 Localized swelling, mass and lump, trunk; K80.20 Calculus of gallbladder without cholecystitis without obstruction
CPT/HCPCS: 74160; Q9967

== ENCOUNTER → 2020-07-02 13:40 | Outpatient (CLI) | payer OTHER, MEDICAID, SELFPAY ==
[2020-07-04 10:20] LABS: COVID19 Sendout Not Detected (Not Detect)
== END ==
PROVIDERS: PCP Family Medicine; Visit Provider Physician Assistant
DX: Z11.59 Encounter for screening for other viral diseases (principal)
CPT/HCPCS: 87635

== ENCOUNTER 2020-07-05 11:28 | Day surgery (SDC) | payer OTHER, MEDICAID, SELFPAY ==
[2020-07-02 12:43] VITALS: BMI 34.2
[2020-07-05] VITALS (9 sets, daily range): BP systolic 88–143; BP diastolic 56–72; PULSE 50–67; RESP 12–21; TEMP 36.6–36.8; O2SAT 98–100; BMI 33.4
[2020-07-05] MEDS: LACTATED RINGERS 1,000 ML 42 ML IV (12:09)
--- NOTE | 2020-07-05 12:33 | PM.HP.1 ---
History of Present Illness History of Present Illness Date Patient Seen: 07/05/20 Time Patient Seen: 12:33 Chief complaint: SDC Narrative: Patient is a woman who has lost a lot of weight. She had a hernia repaired in 2018 and it has recurred based on the CT scan and physical exam. She is brought in for repair. The 1st repair was done without mesh. Patient History Medical History Alcohol use disorder (Resolved) Anxiety (Chronic ~2006) Asthma (Resolved) Chickenpox (Resolved ~1974) Low back pain radiating to left leg (Chronic) Nightmares (Acute) Ovarian cyst (Resolved ~1986) Tobacco use disorder (Resolved) Tobacco use disorder, moderate, in early remission (Acute) Surgical History Anesthesia (Inactive) History of removal of ovarian cyst (Resolved ~1985) Hx of hernia repair (Acute 04/07/19) Status post delivery (~1986) Status post delivery (~1991) Status post ORIF of fracture of ankle (Resolved ~1993) Tubal (Resolved ~1990) Family & Social History Family History Father Age: 88 Alcoholism Grandfather No problems noted. Grandmother No problems noted. Grandfather No problems noted. Grandmother No problems noted. Social History: household members family Tobacco & Substance use: Smoking Status Current every day smoker alcohol intake current alcohol intake frequency a few times a week Substance Use Type marijuana Meds Home Medications and Allergies Home Medications Medication Instructions Recorded Confirmed Type lithium carbonate 300 mg capsule 300 mg PO BID #60 cap 04/05/20 07/05/20 Rx levothyroxine 50 mcg tablet 50 mcg PO DAILY #90 tab 05/26/20 07/05/20 Rx prazosin 2 mg capsule 2 mg PO BEDTIME #30 cap 05/26/20 07/05/20 Rx ziprasidone HCl 80 mg capsule 80 mg PO QPM #30 cap 05/26/20 07/05/20 Rx Allergies Allergy/AdvReac Type Severity Reaction Status Date / Time No Known Drug Allergies Allergy Verified 07/05/20 11:51 Review of Systems Review of Systems ROS: Yes All systems reviewed with the patient and are negative except as otherwise documented Exam Vital Signs (past 8 hours): - 07/05/20 11:59 Temperature 98.3 F Pulse Rate 57 L Respiratory Rate 17 Blood Pressure 98/64 Pulse Oximetry 98 Oxygen Delivery Method Room Air Narrative Exam Narrative: Cooperative no apparent distress. Lungs are clear to auscultation no rales or rhonchi. Heart regular rate and rhythm without murmur gallop. Abdomen is soft scaphoid nontender. She has lost weight. She has a hernia in the area of a prior incision in the upper abdomen mid abdomen. Alert and oriented x3. Assessment & Plan Assessment & Plan narrative: Recurrent ventral hernia for repair. I have discussed the procedure including risks of bleeding infection recurrence she appears to understand. We will probably use mesh to repair it this time.
--- NOTE | 2020-07-05 12:46 | PM.PREOP ---
Pre-operative Note COVID-19 COVID-19 status: Negative Result date/Date tested (Pos, Neg/Pending): 07/02/20 Interval Note History & Physical reviewed/Exam performed by Physician: Yes Changes to H&P: No
[2020-07-05] MEDS: CEFAZOLIN 2 GM/100 ML FROZ.PIGGY IV (13:21)
--- NOTE | 2020-07-05 13:25 | SUR.OPER ---
Supine on padded OR bed, head on pillow, arms secured on padded arm boards at <90 degrees abduction, legs uncrossed, safety belt at thigh, tape over blanket over lower legs.
[2020-07-05] MEDS: BUPIVACAINE 0.5% (PF) VIAL 30 ML INJ (13:28)
[2020-07-05] MEDS: fentaNYL 100 MCG/2 ML INJ IV ×2 (14:30→14:35)
[2020-07-05] MEDS: OXYCODONE/ACETAMINOPHEN 5/325 TABLET 1 TAB PO (14:40)
--- NOTE | 2020-07-05 14:41 | PM.OP.1 ---
Operative Date/Time/Diagnoses Date of procedure: 07/05/20 Time of procedure: 14:41 Pre-op diagnosis: Ventral hernia recurrence at. Post-op diagnosis: same Procedure & Clinicians Procedure: Repair with underlay and at and overlay of mesh Same procedure as scheduled: Yes Indications: Symptomatic recurrence of a hernia in the mid abdomen at the midline Surgeon: Urban Guy Certified Ophthalmic Technologist: Wes Monteiro Anesthesia Type: General Operative Notes Findings: 1 in wide defect close superior to inferior. 1.7 in diameter underlay of mesh followed by a an overlay of a piece of lightweight mesh 9 x 9 cm. Closure Type: primary Specimen(s): none sent Prosthetic devices, grafts, tissues, transplants, or devices: Mesh 2 different types Estimated Blood Loss (mL): 15 Blood products transfused: none Procedure in detail: The patient was placed supine on the operating room table underwent general LMA anesthesia. She was prepped and draped in the usual fashion. A vertical incision was made through an old scar in her upper mid abdomen and carried down to the level of the hernia sac. Hernia sac was from the surrounding subcu fat and the fascial edge identified. Hernia sac was from this and the tissues beneath the abdominal wall were dissected off of it. The fascial edge was cleared of extraneous tissue. A 1.7 in diameter circular mesh with a non adherent side was placed under the fascia and the fascia closed with [id number] and interrupted Ethibond sutures. The subcu fat was dissected off the underlying muscle fascia to create a space to fix mesh over the hernia. A piece of mesh was obtained and trimmed to approximately 9 x 9 cm and sutured with interrupted Ethibond into place grasping the anterior muscle fascia to secure the mesh at its edge. The subcu was closed with interrupted 3 0 Vicryl. The skin was closed a running 4 0 Vicryl subcuticular stitch in occasional 5 0 nylon sutures and Steri-Strips. Dressing was applied the patient was awakened extubated taken recovery room in good condition. Complications: none Post-operative Condition: stable Disposition: PACU
[2020-07-05] MEDS: MEPERIDINE 100 MG/ML INJ 25 MG IV (14:50)
== END 2020-07-05 15:35 | disposition home or self-care (01) ==
PROVIDERS: PCP Family Medicine; Referring Provider Family Medicine; Visit Provider Specialist
PROC: (CPT 49565; principal; 2020-07-05 12:45)
DX: K43.9 Ventral hernia without obstruction or gangrene (principal); E03.9 Hypothyroidism, unspecified; F31.9 Bipolar disorder, unspecified
CPT/HCPCS: 49565; 49568; C1781; J0690; J1100; J1885; J2175; J2250; J2405; J2704; J3010

== ENCOUNTER → 2020-08-13 10:13 | Outpatient (CLI) | payer OTHER, MEDICAID, SELFPAY ==
[2020-08-13 10:58] LABS: Lithium 0.5 mmol/L (0.6-1.2)
[2020-08-13 10:59] LABS: Alanine Aminotransferase 61 IU/L (<35); Albumin 4.4 g/dL (3.5-5.0); Albumin Globulin Ratio 1.3 (1.0-2.8); Alkaline Phosphatase 85 U/L (38-126); Aspartate Aminotransferase 54 IU/L (14-36); BUN Creatinine Ratio 15.4 (6-22); Bilirubin Total 0.6 mg/dL (0.2-1.3); Blood Urea Nitrogen 10 mg/dL (7-17); Calcium 9.3 mg/dL (8.4-10.2); Carbon Dioxide 28 mmol/L (22-32); Chloride 105 mmol/L (98-107); Estimated Glomerular Filt Rate > 60.0 mL/min (>60); Globulin 3.3 g/dL (1.7-4.1); Glucose 94 mg/dL (70-100); HEMOLYSIS 16 (0-50); Potassium 4.1 mmol/L (3.4-5.1); Sodium 137 mmol/L (137-145); Total Protein 7.7 g/dL (6.3-8.2)
[2020-08-13 11:33] LABS: TSH w/ Reflex to FT4 3.66 uIU/mL (0.47-4.68)
== END ==
PROVIDERS: PCP Family Medicine; Referring Provider Family Medicine; Visit Provider Family Medicine
DX: E03.2 Hypothyroidism due to medicaments and other exogenous substances (principal); F31.75 Bipolar disorder, in partial remission, most recent episode depressed; R79.89 Other specified abnormal findings of blood chemistry; Z79.899 Other long term (current) drug therapy
CPT/HCPCS: 36415; 80053; 80178; 84443

== ENCOUNTER 2020-10-01 19:37 | Emergency (ER) | payer OTHER, MEDICAID, SELFPAY ==
[2020-10-01 19:43] VITALS: BP 121/59; PULSE 79; RESP 18; TEMP 36.3; O2SAT 98; BMI 33.1
== END 2020-10-01 20:05 | disposition left against medical advice (07) ==
PROVIDERS: Emergency Provider Emergency Medicine; PCP Family Medicine
DX: R07.9 Chest pain, unspecified (principal)
CPT/HCPCS: 93005; 99281

== ENCOUNTER → 2020-11-10 09:29 | Outpatient (CLI) | payer OTHER, MEDICAID, SELFPAY ==
[2020-11-10 11:06] LABS: Alanine Aminotransferase 85 IU/L (<35); Albumin 4.5 g/dL (3.5-5.0); Albumin Globulin Ratio 1.3 (1.0-2.8); Alkaline Phosphatase 116 U/L (38-126); Aspartate Aminotransferase 66 IU/L (14-36); BUN Creatinine Ratio 17.6 (6-22); Bilirubin Total 0.7 mg/dL (0.2-1.3); Blood Urea Nitrogen 13 mg/dL (7-17); Calcium 9.8 mg/dL (8.4-10.2); Carbon Dioxide 29 mmol/L (22-32); Chloride 103 mmol/L (98-107); Estimated Glomerular Filt Rate > 60.0 mL/min (>60); Globulin 3.6 g/dL (1.7-4.1); Glucose 101 mg/dL (70-100); HEMOLYSIS < 15 (0-50); Lithium 0.7 mmol/L (0.6-1.2); Potassium 3.8 mmol/L (3.4-5.1); Sodium 139 mmol/L (137-145); Total Protein 8.1 g/dL (6.3-8.2)
[2020-11-10 11:36] LABS: TSH w/ Reflex to FT4 2.22 uIU/mL (0.47-4.68)
== END ==
PROVIDERS: PCP Family Medicine; Referring Provider Family Medicine; Visit Provider Family Medicine
DX: E03.2 Hypothyroidism due to medicaments and other exogenous substances (principal); R79.89 Other specified abnormal findings of blood chemistry; Z79.899 Other long term (current) drug therapy
CPT/HCPCS: 36415; 80053; 80178; 84443

== ENCOUNTER → 2021-02-01 09:05 | Outpatient (CLI) | payer OTHER, MEDICAID, SELFPAY ==
[2021-02-01 09:40] LABS: Add Manual Diff / Slide Review NO; Basophils Absolute Auto 100 /uL (0-100); Basophils Percent Auto 1.4 % (0-2); Eosinophils Absolute Auto 200 /uL (0-450); Eosinophils Percent Auto 4.3 % (2-4); Hematocrit 44.2 % (36-46); Hemoglobin 14.7 g/dL (12.0-16.0); Lymphocytes Absolute Auto 2100 /uL (1100-4500); Lymphocytes Percent Auto 43.8 % (25-40); Mean Corpuscular HGB Conc 33.4 % (30-36); Mean Corpuscular Hemoglobin 32.8 PG (26-34); Mean Corpuscular Volume 98.2 fL (80-100); Monocytes Absolute Auto 600 /uL (0-900); Monocytes Percent Auto 13.6 % (3-14); Neutrophils Absolute Auto 1700 /uL (1500-7000); Neutrophils Percent Auto 36.9 % (50-75); Platelet Count 125 X10^3/uL (150-400); Red Cell Distribution Width 13.3 % (11.6-14.8); White Blood Cell Count 4.7 X10^3/uL (4.5-11.0)
[2021-02-01 09:45] LABS: INR 1.1 (0.9-1.3); Prothrombin Time 12.7 SECONDS (10.1-12.7)
[2021-02-01 10:12] LABS: Alanine Aminotransferase 72 IU/L (<35); Albumin 3.7 g/dL (3.5-5.0); Albumin Globulin Ratio 1.2 (1.0-2.8); Alkaline Phosphatase 96 U/L (38-126); Aspartate Aminotransferase 63 IU/L (14-36); BUN Creatinine Ratio 17.9 (6-22); Bilirubin Total 0.5 mg/dL (0.2-1.3); Blood Urea Nitrogen 15 mg/dL (7-17); Calcium 9.3 mg/dL (8.4-10.2); Carbon Dioxide 26 mmol/L (22-32); Chloride 108 mmol/L (98-107); Estimated Glomerular Filt Rate > 60.0 mL/min (>60); Globulin 3.2 g/dL (1.7-4.1); Glucose 91 mg/dL (70-100); HEMOLYSIS < 15 (0-50); Lithium < 0.2 mmol/L (0.6-1.2); Potassium 4.4 mmol/L (3.4-5.1); Sodium 140 mmol/L (137-145); Total Protein 6.9 g/dL (6.3-8.2)
[2021-02-01 11:23] LABS: Free T4, Direct Thyroxine 0.88 ng/dL (0.78-2.19)
[2021-02-01 21:36] LABS: Valproic Acid (Depakene) Total 124 ug/mL (50-100)
== END ==
PROVIDERS: PCP Family Medicine; Referring Provider Family Medicine; Visit Provider Family Medicine
DX: E03.2 Hypothyroidism due to medicaments and other exogenous substances (principal); F31.75 Bipolar disorder, in partial remission, most recent episode depressed; R79.89 Other specified abnormal findings of blood chemistry; Z79.899 Other long term (current) drug therapy
CPT/HCPCS: 36415; 80053; 80164; 80178; 84439; 84443; 85025; 85610

== ENCOUNTER → 2021-02-23 10:21 | Outpatient (CLI) | payer OTHER, MEDICAID, SELFPAY ==
[2021-02-23 10:38] LABS: Add Manual Diff / Slide Review NO; Basophils Absolute Auto 100 /uL (0-100); Eosinophils Absolute Auto 300 /uL (0-450); Eosinophils Percent Auto 4.3 % (2-4); Hematocrit 44.4 % (36-46); Hemoglobin 14.9 g/dL (12.0-16.0); Lymphocytes Absolute Auto 2500 /uL (1100-4500); Lymphocytes Percent Auto 36.1 % (25-40); Mean Corpuscular HGB Conc 33.5 % (30-36); Mean Corpuscular Hemoglobin 33.1 PG (26-34); Mean Corpuscular Volume 98.7 fL (80-100); Monocytes Absolute Auto 700 /uL (0-900); Monocytes Percent Auto 10.2 % (3-14); Neutrophils Absolute Auto 3300 /uL (1500-7000); Neutrophils Percent Auto 48.4 % (50-75); Platelet Count 178 X10^3/uL (150-400); Red Cell Distribution Width 14.9 % (11.6-14.8); White Blood Cell Count 6.9 X10^3/uL (4.5-11.0)
[2021-02-24 07:36] LABS: Valproic Acid (Depakene) Total 55 ug/mL (50-100)
== END ==
PROVIDERS: PCP Family Medicine; Referring Provider Family Medicine; Visit Provider Family Medicine
DX: D69.6 Thrombocytopenia, unspecified (principal); Z79.899 Other long term (current) drug therapy
CPT/HCPCS: 36415; 80164; 85025

== ENCOUNTER → 2021-05-23 09:36 | Outpatient (CLI) | payer OTHER, MEDICAID, SELFPAY ==
[2021-05-23 10:08] LABS: Add Manual Diff / Slide Review NO; Basophils Absolute Auto 0 /uL (0-100); Basophils Percent Auto 0.7 % (0-2); Eosinophils Absolute Auto 100 /uL (0-450); Eosinophils Percent Auto 2.1 % (2-4); Hematocrit 42.2 % (36-46); Lymphocytes Absolute Auto 2200 /uL (1100-4500); Lymphocytes Percent Auto 40.5 % (25-40); Mean Corpuscular HGB Conc 33.1 % (30-36); Mean Corpuscular Hemoglobin 34.3 PG (26-34); Mean Corpuscular Volume 103.7 fL (80-100); Monocytes Absolute Auto 700 /uL (0-900); Monocytes Percent Auto 12.8 % (3-14); Neutrophils Absolute Auto 2400 /uL (1500-7000); Neutrophils Percent Auto 43.9 % (50-75); Platelet Count 179 X10^3/uL (150-400); Red Blood Cell Count 4.07 X10^6/uL (4.0-5.2); Red Cell Distribution Width 13.6 % (11.6-14.8); White Blood Cell Count 5.5 X10^3/uL (4.5-11.0)
[2021-05-23 10:29] LABS: Alanine Aminotransferase 65 IU/L (<35); Albumin 3.9 g/dL (3.5-5.0); Albumin Globulin Ratio 1.3 (1.0-2.8); Alkaline Phosphatase 70 U/L (38-126); Aspartate Aminotransferase 59 IU/L (14-36); Bilirubin Total 0.6 mg/dL (0.2-1.3); Blood Urea Nitrogen 14 mg/dL (7-17); Calcium 9.3 mg/dL (8.4-10.2); Carbon Dioxide 28 mmol/L (22-32); Chloride 108 mmol/L (98-107); Estimated Glomerular Filt Rate > 60.0 mL/min (>60); Globulin 3.1 g/dL (1.7-4.1); Glucose 91 mg/dL (70-100); HEMOLYSIS < 15 (0-50); Sodium 140 mmol/L (137-145)
[2021-05-23 11:22] LABS: TSH w/ Reflex to FT4 3.75 uIU/mL (0.47-4.68)
[2021-05-24 03:25] LABS: Valproic Acid (Depakene) Total 70 ug/mL (50-100)
== END ==
PROVIDERS: PCP Family Medicine; Referring Provider Family Medicine; Visit Provider Family Medicine
DX: E03.2 Hypothyroidism due to medicaments and other exogenous substances (principal); R79.89 Other specified abnormal findings of blood chemistry; Z79.899 Other long term (current) drug therapy
CPT/HCPCS: 36415; 80053; 80164; 84443; 85025

== ENCOUNTER → 2021-08-02 13:14 | Outpatient (CLI) | payer OTHER, MEDICAID, SELFPAY | PROVIDERS: PCP Family Medicine; Referring Provider Physician Assistant; Visit Provider Physician Assistant | DX: N34.3 Urethral syndrome, unspecified (principal) | CPT/HCPCS: 81002; 87086 ==

== ENCOUNTER → 2021-08-22 15:48 | Outpatient (CLI) | payer OTHER, MEDICAID, SELFPAY ==
[2021-08-22 16:30] LABS: Add Manual Diff / Slide Review NO; Basophils Absolute Auto 0 /uL (0-100); Basophils Percent Auto 0.6 % (0-2); Eosinophils Absolute Auto 200 /uL (0-450); Eosinophils Percent Auto 2.2 % (2-4); Hematocrit 42.2 % (36-46); Hemoglobin 14.4 g/dL (12.0-16.0); Lymphocytes Absolute Auto 3100 /uL (1100-4500); Lymphocytes Percent Auto 40.2 % (25-40); Mean Corpuscular Hemoglobin 33.8 PG (26-34); Mean Corpuscular Volume 99.5 fL (80-100); Monocytes Absolute Auto 700 /uL (0-900); Monocytes Percent Auto 9.6 % (3-14); Neutrophils Absolute Auto 3600 /uL (1500-7000); Neutrophils Percent Auto 47.4 % (50-75); Platelet Count 224 X10^3/uL (150-400); Red Blood Cell Count 4.25 X10^6/uL (4.0-5.2); Red Cell Distribution Width 12.9 % (11.6-14.8); White Blood Cell Count 7.7 X10^3/uL (4.5-11.0)
[2021-08-22 17:06] LABS: Lithium 0.6 mmol/L (0.6-1.2)
[2021-08-22 17:12] LABS: Alanine Aminotransferase 59 IU/L (<35); Albumin 4.2 g/dL (3.5-5.0); Albumin Globulin Ratio 1.3 (1.0-2.8); Alkaline Phosphatase 80 U/L (38-126); Aspartate Aminotransferase 54 IU/L (14-36); BUN Creatinine Ratio 27.3 (6-22); Bilirubin Total 0.6 mg/dL (0.2-1.3); Blood Urea Nitrogen 24 mg/dL (7-17); Calcium 9.2 mg/dL (8.4-10.2); Carbon Dioxide 28 mmol/L (22-32); Chloride 104 mmol/L (98-107); Estimated Glomerular Filt Rate > 60.0 mL/min (>60); Globulin 3.3 g/dL (1.7-4.1); Glucose 94 mg/dL (70-100); HEMOLYSIS < 15 (0-50); Potassium 4.3 mmol/L (3.4-5.1); Sodium 138 mmol/L (137-145); Total Protein 7.5 g/dL (6.3-8.2)
[2021-08-22 17:42] LABS: TSH w/ Reflex to FT4 1.33 uIU/mL (0.47-4.68)
[2021-08-22 18:01] LABS: Vitamin B12 748 pg/mL (239-931)
[2021-08-23 04:47] LABS: Valproic Acid (Depakene) Total 23 ug/mL (50-100)
== END ==
PROVIDERS: PCP Family Medicine; Referring Provider Family Medicine; Visit Provider Family Medicine
DX: D69.6 Thrombocytopenia, unspecified (principal); Z79.899 Other long term (current) drug therapy; E03.9 Hypothyroidism, unspecified; R79.89 Other specified abnormal findings of blood chemistry
CPT/HCPCS: 36415; 80053; 80164; 80178; 82607; 84443; 85025

== ENCOUNTER 2021-11-19 14:21 | Emergency (ER) | payer OTHER, MEDICAID, SELFPAY ==
[2021-11-19] VITALS (9 sets, daily range): BP systolic 118–152; BP diastolic 61–99; PULSE 58–76; RESP 14–25; TEMP 36.6–36.7; O2SAT 95–100; BMI 32.5
--- NOTE | 2021-11-19 14:27 | DI.RAD.S_ITS ---
PROCEDURE: XR CHEST 1V INDICATIONS: SOB, chest pain TECHNIQUE: One view of the chest was acquired. COMPARISON: [facility], CR, XR CHEST 1V, 06/07/2020, 16:02. FINDINGS: Surgical changes and devices: None. Lungs and pleura: Lungs are clear. No pleural effusions or pneumothorax. Mediastinum: Mediastinal contours appear normal. Heart size is normal. Bones and chest wall: No suspicious bony lesions. Overlying soft tissues appear unremarkable. IMPRESSION: No acute cardiopulmonary process demonstrated radiographically. Dictated by: Chase Neal M.D. on 11/19/2021 at 14:46 Approved by: Chase Neal M.D. on 11/19/2021 at 14:47
--- NOTE | 2021-11-19 14:35 | ED_ITS ---
HPI - SOB/Dyspnea General Chief Complaint: Shortness of Breath/Dyspnea Stated Complaint: sob, left lung tight, works with chemicals, cough Time Seen by Provider: 11/19/21 14:27 History of Present Illness HPI Narrative: 56-year-old female with history of bipolar, insomnia and environmental allergies presents with a friend and a chief complaint of shortness of breath for many months. 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 She states that she has been having shortness of breath which is worse with a deep breath for quite some time. She has some left-sided lung pressure which has been present for many months as well. She denies any obvious provocation, palliation or radiation. She denies associated symptoms such as dizziness, weakness or lightheadedness. She denies nausea, vomiting or diarrhea. Related Data Home Medications Medication Instructions Recorded Confirmed methylphenidate HCl 10 mg tablet 10 mg PO BID 09/30/21 09/30/21 prazosin 1 mg capsule 1 mg PO TID cap 09/30/21 09/30/21 Previous Rx's Medication Instructions Recorded levothyroxine 88 mcg tablet 88 mcg PO DAILY #90 tab 05/23/21 lithium carbonate 300 mg capsule 300 mg PO BID #180 cap 08/04/21 Allergies Allergy/AdvReac Type Severity Reaction Status Date / Time No Known Drug Allergies Allergy Verified 09/30/21 16:05 Review of Systems Review of Systems Narrative: GENERAL: Denies chills, fatigue, malaise, fever, sweats. HEENT: Denies sinus pain, ear pain, sore throat, difficulty swallowing, dizziness. RESPIRATORY: See HPI CARDIOVASCULAR: See HPI GASTROINTESTINAL: Denies nausea, vomiting, abdominal pain, diarrhea, consti pation, melena. : Denies dysuria, frequency, incontinence, hematuria, urinary retention. MUSCULOSKELETAL: denies weakness, joint pain, or bony pain SKIN: Denies rash, skin lesions, or other NEUROLOGIC: Denies weakness, headache, numbness, change in speech, confusion, seizures, incoordination. PSYCHIATRIC: No concerning psychosocial issues. 12 point review of systems is negative except for those stated above Patient History Medical History Alcohol use disorder Anxiety (~2006) Asthma Chickenpox (~1974) Low back pain radiating to left leg Nightmares On valproic acid therapy Ovarian cyst (~1986) Tobacco use disorder Tobacco use disorder, moderate, in early remission Surgical History Anesthesia History of removal of ovarian cyst (~1985) Hx of hernia repair (04/07/19) Status post delivery (~1986) Status post delivery (~1991) Status post ORIF of fracture of ankle (~1993) Tubal (~1990) Family History Father Age: 89 Alcoholism Grandfather No problems noted. Grandmother No problems noted. Grandfather No problems noted. Grandmother No problems noted. Social History marital status: unknown household members: family occupational status: previously employed Smoking Status: Former smoker alcohol intake: current substance use type: does not use Smoking Status: Former smoker alcohol intake frequency: a few times a week Substance Use Type: marijuana Exam Narrative Exam Narrative: GENERAL: [56] year old patient appears stated age. Well-developed patient, in mild distress. HEAD: Atraumatic. Normocephalic. EYES: Pupils equal round and reactive. Extraocular motions intact. No scleral icterus. No injection or drainage. ENT: Nose without bleeding, purulent drainage. Throat without erythema, tonsillar hypertrophy or exudate. Airway patent. NECK: Trachea midline. Non tender CARDIOVASCULAR: Regular rate and rhythm without murmurs, gallops, or rubs. RESPIRATORY: Clear to auscultation. Breath sounds equal bilaterally. No wheezes, rales, or rhonchi. Deep breath illicits bronchospastic cough GASTROINTESTINAL: Abdomen soft, non-tender, nondistended. EXTREMITIES: No edema or joint tenderness. BACK: Nontender without deformity or crepitance. No flank tenderness. NEURO: AOx3. SKIN: No rash or erythema of visible areas Initial Vital Signs Initial Vital Signs: Vital Signs Pulse Rate 76 11/19/21 14:30 Pulse Oximetry 100 11/19/21 14:30 Course Orders Ordered: ED Orders 11/19/21 14:27 Chest [XR chest 1V] Stat 11/19/21 14:35 COVID19 -Nasal swab/Pre-Proc Stat 11/19/21 14:40 Complete Blood Count AUTO DIFF Stat Comprehensive Metabolic Panel Stat D Dimer Stat Magnesium Stat NT-proBNP (BNP-Adult 18+) Stat Troponin & CK Cardiac Panel Stat Sodium Chloride (Normal Saline 0.9%) 1,000 mls @ 125 mls/hr IV CONT [place] Last Infusion: 11/19/21 15:51 Dose: 0 mls/hr Documented by: Admin: 11/19/21 14:42 Dose: 125 mls/hr Documented by: LAMAR Discontinued Medications Albuterol/Ipratropium (Albuterol/Ipratropium 3 Ml Ampul) 3 ml INH NOW ONE Stop: 11/19/21 15:37 Last Admin: 11/19/21 15:47 Dose: 3 ml Documented by: CHRISTIE Methylprednisolone (Methylprednisolone 125 Mg/2 Ml Vial) 125 mg IV NOW ONE Stop: 11/19/21 14:28 Last Admin: 11/19/21 14:42 Dose: 125 mg Documented by: LAMAR Vital Signs Vital signs: Vital Signs - 8 hr 11/19/21 14:30 11/19/21 14:31 11/19/21 14:33 Temperature 97.8 F Pulse Rate 76 66 64 Respiratory Rate 20 Blood Pressure 152/99 H 122/68 Pulse Oximetry 100 97 100 11/19/21 15:00 11/19/21 15:01 11/19/21 15:30 Temperature Pulse Rate 58 L 62 58 L Respiratory Rate 21 21 25 H Blood Pressure 125/68 118/61 Pulse Oximetry 100 100 98 11/19/21 15:48 Temperature Pulse Rate 62 Respiratory Rate 16 Blood Pressure Pulse Oximetry 97 MDM - SOB/Dyspnea Lab Data Result diagrams: 11/19/21 14:40 11/19/21 14:40 Labs: Lab Results 11/19/21 11/19/21 11/19/21 Range/Units 14:35 14:40 14:40 WBC 6.9 (4.5-11.0) X10^3/uL RBC 4.24 (4.0-5.2) X10^6/uL Hgb 13.9 (12.0-16.0) g/dL Hct 41.3 (36-46) % MCV 97.4 (80-100) fL MCH 32.7 (26-34) PG MCHC 33.6 (30-36) % RDW 12.7 (11.6-14.8) % Plt Count 176 (150-400) X10^3/uL Neut % (Auto) 52.8 (50-75) % Lymph % (Auto) 35.4 (25-40) % [place] % (Auto) 9.7 (3-14) % Eos % (Auto) 1.6 L (2-4) % Baso % (Auto) 0.5 (0-2) % Neut # (Auto) 3600 (3812-4165) /uL Lymph # (Auto) 2400 (5981-5157) /uL [place] # (Auto) 700 (0-900) /uL Eos # (Auto) 100 (0-450) /uL Baso # (Auto) 0 (0-100) /uL D-Dimer < 200 (<230) ng/mL Sodium (137-145) mmol/L Potassium (3.4-5.1) mmol/L Chloride (98-107) mmol/L Carbon Dioxide (22-32) mmol/L BUN (7-17) mg/dL Creatinine (0.52-1.04) mg/dL Estimated GFR (>60) mL/min BUN/Creatinine Ratio (6-22) Glucose (70-100) mg/dL Calcium (8.4-10.2) mg/dL Magnesium (1.6-2.3) mg/dL Total Bilirubin (0.2-1.3) mg/dL AST (14-36) IU/L ALT (<35) IU/L Alkaline Phosphatase (38-126) U/L Total Creatine Kinase (30-135) U/L CK-MB (CK-2) CK-MB (CK-2) Rel Index Troponin I (0.01-0.034) ng/mL NT-Pro-B Natriuret Pep (<125) pg/mL Total Protein (6.3-8.2) g/dL Albumin (3.5-5.0) g/dL Globulin (1.7-4.1) g/dL Albumin/Globulin Ratio (1.0-2.8) SARS-CoV-2 (PCR) Negative (Negative) 11/19/21 Range/Units 14:40 WBC (4.5-11.0) X10^3/uL RBC (4.0-5.2) X10^6/uL Hgb (12.0-16.0) g/dL Hct (36-46) % MCV (80-100) fL MCH (26-34) PG MCHC (30-36) % RDW (11.6-14.8) % Plt Count (150-400) X10^3/uL Neut % (Auto) (50-75) % Lymph % (Auto) (25-40) % [place] % (Auto) (3-14) % Eos % (Auto) (2-4) % Baso % (Auto) (0-2) % Neut # (Auto) (1130-2750) /uL Lymph # (Auto) (9582-9095) /uL [place] # (Auto) (0-900) /uL Eos # (Auto) (0-450) /uL Baso # (Auto) (0-100) /uL D-Dimer (<230) ng/mL Sodium 135 L (137-145) mmol/L Potassium 4.4 (3.4-5.1) mmol/L Chloride 105 (98-107) mmol/L Carbon Dioxide 25 (22-32) mmol/L BUN 9 (7-17) mg/dL Creatinine 0.68 (0.52-1.04) mg/dL Estimated GFR > 60.0 (>60) mL/min BUN/Creatinine Ratio 13.2 (6-22) Glucose 92 (70-100) mg/dL Calcium 9.3 (8.4-10.2) mg/dL Magnesium 1.8 (1.6-2.3) mg/dL Total Bilirubin 0.6 (0.2-1.3) mg/dL AST 48 H (14-36) IU/L ALT 46 H (<35) IU/L Alkaline Phosphatase 71 (38-126) U/L Total Creatine Kinase 74 (30-135) U/L CK-MB (CK-2) TNP CK-MB (CK-2) Rel Index TNP Troponin I < 0.012 (0.01-0.034) ng/mL NT-Pro-B Natriuret Pep 25 (<125) pg/mL Total Protein 7.6 (6.3-8.2) g/dL Albumin 4.2 (3.5-5.0) g/dL Globulin 3.4 (1.7-4.1) g/dL Albumin/Globulin Ratio 1.2 (1.0-2.8) SARS-CoV-2 (PCR) (Negative) Imaging Data Chest x-ray: Radiologist's Impression: [address] [address] XRay Report Signed Patient: Nury Salmeron MR#: [id number] : 1965 Acct:[id number] Age/Sex: 56 / F Date of Service: 11/19/21 Loc: ED Accession Number: [id number] ?? Procedure: XR chest 1V Ordering Provider: Maciel Amin D.O. PROCEDURE:? XR CHEST 1V ? INDICATIONS:? SOB, chest pain ? TECHNIQUE:? One view of the chest was acquired.? ? COMPARISON:? [facility], CR, XR CHEST 1V, 06/07/2020, 16:02. ? FINDINGS:? ? Surgical changes and devices:? None.? ? Lungs and pleura:? Lungs are clear.? No pleural effusions or pneumothorax.? ? Mediastinum:? Mediastinal contours appear normal.? Heart size is normal.? ? Bones and chest wall:? No suspicious bony lesions.? Overlying soft tissues moy ear unremarkable.? ? IMPRESSION:? No acute cardiopulmonary process demonstrated radiographically. ? ? Dictated by: Chase Neal M.D. on 11/19/2021 at 14:46 ? ? Approved by: Chase Neal M.D. on 11/19/2021 at 14:47 ? Discharge Plan Departure Prescriptions: No Action lithium carbonate 300 mg capsule 300 mg PO BID Qty: 180 0RF levothyroxine 88 mcg tablet 88 mcg PO DAILY Qty: 90 1RF prazosin 1 mg capsule 1 mg PO TID 0RF methylphenidate HCl 10 mg tablet 10 mg PO BID 0RF Referrals: Zhanna Chavez DO [Primary Care Provider] -
[2021-11-19] MEDS: SODIUM CHLORIDE 0.9% 1,000 ML 125 ML IV (14:42)
[2021-11-19] MEDS: methylPREDNISolone 125 MG/2 ML VIAL IV (14:42)
[2021-11-19 14:53] LABS: Add Manual Diff / Slide Review NO; Basophils Absolute Auto 0 /uL (0-100); Basophils Percent Auto 0.5 % (0-2); Eosinophils Absolute Auto 100 /uL (0-450); Eosinophils Percent Auto 1.6 % (2-4); Hematocrit 41.3 % (36-46); Hemoglobin 13.9 g/dL (12.0-16.0); Lymphocytes Absolute Auto 2400 /uL (1100-4500); Lymphocytes Percent Auto 35.4 % (25-40); Mean Corpuscular HGB Conc 33.6 % (30-36); Mean Corpuscular Hemoglobin 32.7 PG (26-34); Mean Corpuscular Volume 97.4 fL (80-100); Monocytes Absolute Auto 700 /uL (0-900); Monocytes Percent Auto 9.7 % (3-14); Neutrophils Absolute Auto 3600 /uL (1500-7000); Neutrophils Percent Auto 52.8 % (50-75); Platelet Count 176 X10^3/uL (150-400); Red Blood Cell Count 4.24 X10^6/uL (4.0-5.2); Red Cell Distribution Width 12.7 % (11.6-14.8); White Blood Cell Count 6.9 X10^3/uL (4.5-11.0)
[2021-11-19 15:04] LABS: D Dimer < 200 ng/mL (<230)
[2021-11-19 15:06] LABS: Alanine Aminotransferase 46 IU/L (<35); Albumin 4.2 g/dL (3.5-5.0); Albumin Globulin Ratio 1.2 (1.0-2.8); Alkaline Phosphatase 71 U/L (38-126); Aspartate Aminotransferase 48 IU/L (14-36); BUN Creatinine Ratio 13.2 (6-22); Bilirubin Total 0.6 mg/dL (0.2-1.3); Blood Urea Nitrogen 9 mg/dL (7-17); Calcium 9.3 mg/dL (8.4-10.2); Carbon Dioxide 25 mmol/L (22-32); Chloride 105 mmol/L (98-107); Creatine Kinase 74 U/L (30-135); Estimated Glomerular Filt Rate > 60.0 mL/min (>60); Globulin 3.4 g/dL (1.7-4.1); Glucose 92 mg/dL (70-100); HEMOLYSIS < 15 (0-50); Magnesium 1.8 mg/dL (1.6-2.3); Potassium 4.4 mmol/L (3.4-5.1); Sodium 135 mmol/L (137-145); Total Protein 7.6 g/dL (6.3-8.2)
[2021-11-19 15:17] LABS: COVID19 -Nasal RAPID Negative (Negative)
[2021-11-19 15:18] LABS: NT-proBNP (BNP-Adult 18+) 25 pg/mL (<125); Troponin I < 0.012 ng/mL (0.01-0.034)
[2021-11-19] MEDS: ALBUTEROL/IPRATROPIUM 3 ML AMPUL INH (15:47)
[2021-11-19] MEDS: ALBUTEROL HFA PREPACK 1 BOX MISC (16:35)
== END 2021-11-19 16:47 | disposition home or self-care (01) ==
PROVIDERS: Emergency Provider Emergency Medicine; PCP Family Medicine
DX: R05.9 Cough, unspecified (principal); R07.9 Chest pain, unspecified; R06.02 Shortness of breath; Z77.110 Contact with and (suspected) exposure to air pollution; Z20.822 Contact with and (suspected) exposure to COVID-19
CPT/HCPCS: 36415; 71045; 80053; 82550; 83735; 83880; 84484; 85025; 85379; 87635; 93005; 93010; 94150; 94640; 96374; 99284; C9803; J2930

== ENCOUNTER → 2022-02-23 08:55 | Outpatient (CLI) | payer OTHER, MEDICAID, SELFPAY ==
--- NOTE | 2022-02-23 09:09 | DI.RAD.S_ITS ---
PROCEDURE: XR LUMBAR SPINE 2-3V INDICATIONS: left sided back pain s/p fall 01/28 TECHNIQUE: 3 views of the lumbar spine were acquired. COMPARISON: [facility], CT, CT ABDOMEN W CON, 06/25/2020, 11:59. [facility], CR, XR LUMBAR SPINE 2-3V, 06/11/2020, 12:17. FINDINGS: Bones: 5 [id number] vertebrae are present. Mild left convexity curvature centered at L3 3 mm retrolisthesis L3 on L4, 5 mm retrolisthesis L2 on L3.. No vertebral body compression fractures. Multilevel facet arthropathy most pronounced at L4 L5 and L5-S1. Soft tissues: Overlying bowel gas pattern is normal. Redemonstrated calcified gallstone. IMPRESSION: 1. No acute fracture visualized radiographically. 2. Multilevel degenerative changes of the lumbar spine. Dictated by: Ricardo Jones M.D. on 02/23/2022 at 12:36 Approved by: Ricardo Jones M.D. on 02/23/2022 at 12:43
[2022-02-23 11:00] LABS: Add Manual Diff / Slide Review NO; Basophils Absolute Auto 0 /uL (0-100); Basophils Percent Auto 0.4 % (0-2); Eosinophils Absolute Auto 100 /uL (0-450); Eosinophils Percent Auto 1.2 % (2-4); Hemoglobin 14.5 g/dL (12.0-16.0); Lymphocytes Absolute Auto 2400 /uL (1100-4500); Mean Corpuscular HGB Conc 33.7 % (30-36); Mean Corpuscular Hemoglobin 33.4 PG (26-34); Monocytes Absolute Auto 500 /uL (0-900); Monocytes Percent Auto 7.9 % (3-14); Neutrophils Absolute Auto 3500 /uL (1500-7000); Neutrophils Percent Auto 53.5 % (50-75); Platelet Count 233 X10^3/uL (150-400); Red Blood Cell Count 4.35 X10^6/uL (4.0-5.2); Red Cell Distribution Width 13.2 % (11.6-14.8); White Blood Cell Count 6.4 X10^3/uL (4.5-11.0)
[2022-02-23 11:43] LABS: Lithium < 0.2 mmol/L (0.6-1.2)
[2022-02-23 11:44] LABS: Alanine Aminotransferase 41 IU/L (<35); Albumin 4.5 g/dL (3.5-5.0); Albumin Globulin Ratio 1.4 (1.0-2.8); Alkaline Phosphatase 67 U/L (38-126); Aspartate Aminotransferase 43 IU/L (14-36); BUN Creatinine Ratio 16.9 (6-22); Bilirubin Total 0.5 mg/dL (0.2-1.3); Blood Urea Nitrogen 11 mg/dL (7-17); Calcium 9.4 mg/dL (8.4-10.2); Carbon Dioxide 26 mmol/L (22-32); Chloride 104 mmol/L (98-107); Estimated Glomerular Filt Rate > 60 mL/min (>60); Globulin 3.2 g/dL (1.7-4.1); Glucose 102 mg/dL (70-100); HEMOLYSIS < 15 (0-50); Potassium 4.1 mmol/L (3.4-5.1); Sodium 140 mmol/L (137-145); Total Protein 7.7 g/dL (6.3-8.2)
[2022-02-23 21:23] LABS: TSH w/ Reflex to FT4 4.47 uIU/mL (0.47-4.68)
== END ==
PROVIDERS: PCP Pediatrics; Referring Provider Family Medicine; Visit Provider Family Medicine
DX: M47.816 Spondylosis without myelopathy or radiculopathy, lumbar region (principal); M47.817 Spondylosis without myelopathy or radiculopathy, lumbosacral region; M54.9 Dorsalgia, unspecified; D69.6 Thrombocytopenia, unspecified; E03.2 Hypothyroidism due to medicaments and other exogenous substances; F31.75 Bipolar disorder, in partial remission, most recent episode depressed; E03.9 Hypothyroidism, unspecified; R79.89 Other specified abnormal findings of blood chemistry; F41.8 Other specified anxiety disorders; Z79.899 Other long term (current) drug therapy
CPT/HCPCS: 36415; 72100; 80053; 80178; 84443; 85025

== ENCOUNTER 2022-05-22 14:49 | Emergency (ER) | payer OTHER, MEDICAID, SELFPAY ==
[2022-05-22] VITALS (7 sets, daily range): BP systolic 127–137; BP diastolic 59–78; PULSE 52–58; RESP 19–23; TEMP 36.9; O2SAT 98–100
--- NOTE | 2022-05-22 15:14 | DI.CT.S_ITS ---
PROCEDURE: CT ABDOMEN PELVIS W CON INDICATIONS: Abdominal pain, early full feeling after eating, weight loss TECHNIQUE: After the administration of oral and IV contrast, axial sections were acquired from the lung bases to the pubic symphysis. Coronal and sagittal reformats were performed. For radiation dose reduction, the following was used: automated exposure control, adjustment of mA and/or kV according to patient size. COMPARISON: [facility], CT, CT ABDOMEN W CON, 06/25/2020, 11:59. FINDINGS: Image quality: Excellent. Lung bases: Unremarkable. Heart: No significant findings. ABDOMEN: Liver: Tiny hypodensity most consistent with a cyst or hemangioma. Gallbladder: Small calcified gallstone. Not significantly distended. Biliary ducts: Unremarkable. Pancreas: Unremarkable. Spleen: Unremarkable. Adrenal Glands: No nodule. Kidneys and Ureters: No hydronephrosis. Stomach and Bowel: Stomach, small bowel loops, and colon are unremarkable. Diverticulosis. Normal appendix. Peritoneum: No abnormal intraperitoneal fluid. No free air. Ventral Wall: Thickening at the supraumbilical ventral abdominal wall likely due to scarring, (5/41). No hernias present as was previously seen. Tiny umbilical hernia is unchanged. Abdominal Nodes: No retroperitoneal or mesenteric adenopathy by size criteria. Vessels: Aorta and inferior vena cava are normal in size. PELVIS: Pelvic Organs: Unremarkable. Bladder: Unremarkable. Pelvic Nodes: No enlarged lymph nodes. Miscellaneous: No inguinal hernias are seen. Bones: No suspicious lesion. IMPRESSION: 1. No mass or adenopathy identified. 2. Diverticulosis. No diverticulitis demonstrated. No free fluid. 3. Cholelithiasis. 4. Thickening of the supraumbilical midline abdominal wall presumably due to prior hernia repair. Dictated by: Gael Palacios M.D. on 05/22/2022 at 16:01 Approved by: Gael Palacios M.D. on 05/22/2022 at 16:07
[2022-05-22 15:15] LABS: Add Manual Diff / Slide Review NO; Basophils Absolute Auto 0 /uL (0-100); Basophils Percent Auto 0.6 % (0-2); Eosinophils Absolute Auto 100 /uL (0-450); Eosinophils Percent Auto 0.8 % (2-4); Hematocrit 40.7 % (36-46); Hemoglobin 13.8 g/dL (12.0-16.0); Lymphocytes Absolute Auto 2500 /uL (1100-4500); Lymphocytes Percent Auto 33.6 % (25-40); Mean Corpuscular HGB Conc 33.9 % (30-36); Mean Corpuscular Hemoglobin 33.4 PG (26-34); Mean Corpuscular Volume 98.4 fL (80-100); Monocytes Absolute Auto 600 /uL (0-900); Monocytes Percent Auto 8.5 % (3-14); Neutrophils Absolute Auto 4200 /uL (1500-7000); Neutrophils Percent Auto 56.5 % (50-75); Platelet Count 223 X10^3/uL (150-400); Red Blood Cell Count 4.14 X10^6/uL (4.0-5.2); Red Cell Distribution Width 13.7 % (11.6-14.8); White Blood Cell Count 7.4 X10^3/uL (4.5-11.0)
[2022-05-22 15:29] LABS: Alanine Aminotransferase 25 IU/L (<35); Albumin 4.4 g/dL (3.5-5.0); Albumin Globulin Ratio 1.2 (1.0-2.8); Alkaline Phosphatase 80 U/L (38-126); Aspartate Aminotransferase 31 IU/L (14-36); BUN Creatinine Ratio 19.4 (6-22); Bilirubin Total 0.6 mg/dL (0.2-1.3); Blood Urea Nitrogen 14 mg/dL (7-17); Calcium 9.2 mg/dL (8.4-10.2); Carbon Dioxide 24 mmol/L (22-32); Chloride 103 mmol/L (98-107); Estimated Glomerular Filt Rate > 60 mL/min (>60); Globulin 3.6 g/dL (1.7-4.1); Glucose 92 mg/dL (70-100); HEMOLYSIS < 15 (0-50); Lipase 127 U/L (23-300); Potassium 4.3 mmol/L (3.4-5.1); Sodium 138 mmol/L (137-145)
--- NOTE | 2022-05-22 15:30 | ED.GENADULT ---
HPI - General Adult General Chief complaint: Abdominal Pain Stated complaint: Weight loss, Can't eat, Tightening stomach feeling Time Seen by Provider: 05/22/22 15:09 Source: patient Mode of arrival: Ambulatory Limitations: no limitations History of Present Illness HPI narrative: Patient is a 56-year-old female. Has had a prior history of was most likely an incisional hernia around her umbilicus that has had 2 prior surgeries to correct. She is here because over the past month she has had discomfort with eating in her upper abdomen and also in the center of her chest. She states that she feels like this is a cramping sensation. She can still swallow liquids without problems. She also states that over the past month she has been losing weight. No change in bowel habits. No urinary symptoms. No vaginal bleeding. No lower abdominal tenderness. Related Data Home Medications Medication Instructions Recorded Confirmed methylphenidate HCl 10 mg tablet 10 mg PO BID 09/30/21 02/23/22 trazodone 100 mg tablet 100 mg PO BEDTIME 02/23/22 02/23/22 Previous Rx's Medication Instructions Recorded lithium carbonate 300 mg capsule 300 mg PO BID #180 caps 08/04/21 cyclobenzaprine 10 mg tablet 10 mg PO TID PRN muscle spasm #30 02/23/22 tabs trazodone 100 mg tablet 100 mg PO BEDTIME PRN insomnia #7 05/22/22 tabs Allergies Allergy/AdvReac Type Severity Reaction Status Date / Time No Known Drug Allergies Allergy Verified 09/30/21 16:05 Review of Systems Review of Systems ROS Unobtainable: All systems reviewed & are unremarkable except as noted in HPI and below Patient History Medical History Alcohol use disorder Anxiety (~2006) Asthma Back pain Chickenpox (~1974) Low back pain radiating to left leg Nightmares On valproic acid therapy Ovarian cyst (~1986) Tobacco use disorder Tobacco use disorder, moderate, in early remission Surgical History Anesthesia History of removal of ovarian cyst (~1985) Hx of hernia repair (04/07/19) Status post delivery (~1986) Status post delivery (~1991) Status post ORIF of fracture of ankle (~1993) Tubal (~1990) Family History Father Age: 90 Alcoholism Grandfather No problems noted. Grandmother No problems noted. Grandfather No problems noted. Grandmother No problems noted. Social History marital status: unknown household members: family occupational status: previously employed Smoking Status: Former smoker alcohol intake: current substance use type: does not use Smoking Status: Former smoker alcohol intake frequency: a few times a week Substance Use Type: marijuana Exam Initial Vital Signs Initial Vital Signs: Vital Signs Temperature 98.4 F 05/22/22 14:51 Pulse Rate 58 L 05/22/22 14:51 Respiratory Rate 22 05/22/22 14:51 Blood Pressure 127/59 L 05/22/22 14:51 Pulse Oximetry 98 05/22/22 14:51 Oxygen Delivery Method 05/22/22 14:51 Const General: cooperative and comfortable HENMT Head: normal to inspection and normocephalic Resp Effort & Inspection: normal respiratory effort Auscultation: clear to auscultation bilaterally Cardio Rate: regular rate Rhythm: regular rhythm GI Inspection: normal to inspection and non-distended Palpation: soft, No firm, No guarding and No tender Skin General: no rashes or lesions noted Neuro General: patient alert, patient awake and moves all extremities Extrem General: normal to inspection and capillary refill normal Psych Appearance: grossly normal and well kempt Course Orders Ordered: ED Orders 05/22/22 14:59 Complete Blood Count AUTO DIFF Stat Comprehensive Metabolic Panel Stat Lipase Stat 05/22/22 15:00 EKG-12 Lead Stat 05/22/22 15:14 CT abdomen pelvis w con Stat 05/22/22 16:12 Test Urine Stat Vital Signs Vital signs: Vital Signs - 8 hr 05/22/22 14:51 05/22/22 15:13 05/22/22 15:15 Temperature 98.4 F Pulse Rate 58 L 55 L Respiratory Rate 22 Blood Pressure 127/59 L Pulse Oximetry 98 100 100 Oxygen Delivery Method Room Air 05/22/22 15:15 05/22/22 15:30 05/22/22 15:30 Temperature Pulse Rate 52 L Respiratory Rate 23 Blood Pressure 129/78 129/59 L Pulse Oximetry 99 Oxygen Delivery Method 05/22/22 16:02 05/22/22 16:03 05/22/22 16:03 Temperature Pulse Rate 52 L 53 L Respiratory Rate 19 Blood Pressure 137/70 Pulse Oximetry 99 99 Oxygen Delivery Method Medical Decision Making Lab Data Lab results reviewed: Yes I reviewed the patient's lab results. Result diagrams: 05/22/22 14:59 05/22/22 14:59 Labs: Lab Results 05/22/22 05/22/22 05/22/22 Range/Units 14:59 14:59 15:53 WBC 7.4 (4.5-11.0) X10^3/uL RBC 4.14 (4.0-5.2) X10^6/uL Hgb 13.8 (12.0-16.0) g/dL Hct 40.7 (36-46) % MCV 98.4 (80-100) fL MCH 33.4 (26-34) PG MCHC 33.9 (30-36) % RDW 13.7 (11.6-14.8) % Plt Count 223 (150-400) X10^3/uL Neut % (Auto) 56.5 (50-75) % Lymph % (Auto) 33.6 (25-40) % [place] % (Auto) 8.5 (3-14) % Eos % (Auto) 0.8 L (2-4) % Baso % (Auto) 0.6 (0-2) % Neut # (Auto) 4200 (3170-4269) /uL Lymph # (Auto) 2500 (0867-0161) /uL [place] # (Auto) 600 (0-900) /uL Eos # (Auto) 100 (0-450) /uL Baso # (Auto) 0 (0-100) /uL Sodium 138 (137-145) mmol/L Potassium 4.3 (3.4-5.1) mmol/L Chloride 103 (98-107) mmol/L Carbon Dioxide 24 (22-32) mmol/L BUN 14 (7-17) mg/dL Creatinine 0.72 (0.52-1.04) mg/dL Estimated GFR > 60 (>60) mL/min BUN/Creatinine Ratio 19.4 (6-22) Glucose 92 (70-100) mg/dL Calcium 9.2 (8.4-10.2) mg/dL Total Bilirubin 0.6 (0.2-1.3) mg/dL AST 31 (14-36) IU/L ALT 25 (<35) IU/L Alkaline Phosphatase 80 (38-126) U/L Total Protein 8.0 (6.3-8.2) g/dL Albumin 4.4 (3.5-5.0) g/dL Globulin 3.6 (1.7-4.1) g/dL Albumin/Globulin Ratio 1.2 (1.0-2.8) Lipase 127 (23-300) U/L Urine Test Negative (Negative) Urine Dip Bedside Urine Glucose Negative Bedside Urine Bilirubin - Negative Bedside Urine Ketone - Negative Urine Specific [place] 1.01 Bedside Urine Occult Blood - Negative Bedside Urine pH 6.5 Bedside Urine Protein - Negative Bedside Urine Urobilinogen - Negative Bedside Urine Nitrite - Negative Bedside Urine Leukocytes - Negative Esterase Point of care testing: Urine Dip Bedside Urine Glucose Negative Bedside Urine Bilirubin - Negative Bedside Urine Ketone - Negative Urine Specific [place] 1.01 Bedside Urine Occult Blood - Negative Bedside Urine pH 6.5 Bedside Urine Protein - Negative Bedside Urine Urobilinogen - Negative Bedside Urine Nitrite - Negative Bedside Urine Leukocytes - Negative Esterase Imaging Data CT scan - abdomen/pelvis: Radiologist's Impression: [place] [address] CT Scan Report Signed Patient: Nury Salmeron MR#: [id number] : 1965 Acct:[id number] Age/Sex: 56 / F Date of Service: 05/22/22 Loc: ED Accession Number: [id number] ?? Procedure: CT abdomen pelvis w con Ordering Provider: Jareth Burnett D.O. PROCEDURE:? CT ABDOMEN PELVIS W CON ? INDICATIONS:? Abdominal pain, early full feeling after eating, weight loss ? TECHNIQUE:? After the administration of oral and IV contrast, axial sections were acquired from the lung bases to the pubic symphysis.? Coronal and sagittal reformats were performed.? For radiation dose reduction, the following was used:? automated exposure control, adjustment of mA and/or kV according to patient size. ? COMPARISON:? [facility], CT, CT ABDOMEN W CON, 06/25/2020, 11:59. ? FINDINGS:? Image quality:? Excellent.? ? Lung bases:? Unremarkable.? ? Heart:? No significant findings. ? ? ABDOMEN: Liver:? Tiny hypodensity most consistent with a cyst or hemangioma. Gallbladder:? Small calcified gallstone.? Not significantly distended.? ? Biliary ducts:? Unremarkable.? ? Pancreas:? Unremarkable.? ? Spleen:? Unremarkable.? ? Adrenal Glands:? No nodule. Kidneys and Ureters:? No hydronephrosis. ? Stomach and Bowel:? Stomach, small bowel loops, and colon are unremarkable.? Diverticulosis.? Normal appendix. Peritoneum:? No abnormal intraperitoneal fluid.? No free air.? ? Ventral Wall: ? Thickening at the supraumbilical ventral abdominal wall likely due to scarring, ().? No hernias present as was previously seen.? Tiny umbilical hernia is unchanged. Abdominal Nodes:? No retroperitoneal or mesenteric adenopathy by size criteria.? Vessels:? Aorta and inferior vena cava are normal in size.? ? PELVIS: Pelvic Organs:? Unremarkable.? ? Bladder:? Unremarkable.? ? Pelvic Nodes: No enlarged lymph nodes.? Miscellaneous: No inguinal hernias are seen. ? ? ? Bones:? No suspicious lesion. ? ? IMPRESSION:? 1. No mass or adenopathy identified. ? 2. Diverticulosis.? No diverticulitis demonstrated.? No free fluid. ? 3. Cholelithiasis. ? 4. Thickening of the supraumbilical midline abdominal wall presumably due to prior hernia repair. ? ? Dictated by: Gael Palacios M.D. on 05/22/2022 at 16:01 ? ? Approved by: Gael Palacios M.D. on 05/22/2022 at 16:07? ECG Data Attestation: I personally reviewed and interpreted this ECG as follows: Interpretation: Sinus bradycardia Ventricular rate of 53 Normal axis Normal QRS Normal QTC No ST T wave changes MDM Narrative Medical decision making narrative: Patient does have a benign exam. LFTs unremarkable. Lipase unremarkable. CT scan shows no definitive cause of her symptoms but also is reassuring that does not show any acute surgical abnormalities. Patient is tolerating oral intake. Can tolerate fluids. Given her presentation I have some suspicion that this is reflux related and that her central chest discomfort is actually esophageal spasms. I discussed this with her. Discussed with her that she does need to contact her primary doctor to discuss the indications for referral to have an upper endoscopy. Will start her on a course of a proton pump inhibitor. She was given return precautions and follow-up instructions. She expressed understanding and agreement. Discharge Plan Departure Patient Disposition: Home Clinical Impression: Abdominal pain Instructions: DI for Abdominal Pain-Adult Activity Restrictions/Additional Instructions: I recommend that you start taking a class of a medicine called a proton pump inhibitor. You can purchase these [id number]. Examples of these include Nexium/Prilosec or omeprazole/esomeprazole. The generic versions of these medications are okay. Please take them on a daily basis as directed. Also recommend you contact your primary doctor for follow-up as you may need further workup to include a upper endoscopy. Return to the emergency department for any new or worsening symptoms. Prescriptions: New trazodone 100 mg tablet 100 mg PO BEDTIME PRN (Reason: insomnia) Qty: 7 0RF No Action lithium carbonate 300 mg capsule 300 mg PO BID Qty: 180 0RF methylphenidate HCl 10 mg tablet 10 mg PO BID trazodone 100 mg tablet 100 mg PO BEDTIME Label Comments: TAKE ONE TABLET BY MOUTH NIGHTLY AT BEDTIME NEEDED FOR SLEEPLESSNESS cyclobenzaprine 10 mg tablet 10 mg PO TID PRN (Reason: muscle spasm) Qty: 30 0RF Rx Instructions: Caution regarding poss sedation Referrals: Hubert Harrell MD [Primary Care Provider] -
[2022-05-22 16:32] LABS: Pregnancy Test Urine Negative (Negative)
== END 2022-05-22 16:40 | disposition home or self-care (01) ==
PROVIDERS: Emergency Provider Emergency Medicine; PCP Pediatrics
DX: R10.10 Upper abdominal pain, unspecified (principal); R07.9 Chest pain, unspecified
CPT/HCPCS: 36415; 74177; 80053; 81003; 81025; 83690; 85025; 93005; 93010; 99284; Q9967

== ENCOUNTER → 2022-06-23 09:51 | Outpatient (CLI) | payer OTHER, MEDICAID, SELFPAY ==
[2022-06-23 11:49] LABS: Lithium 0.7 mmol/L (0.6-1.2)
[2022-06-23 11:50] LABS: Cholesterol 181 mg/dL (140-199); HDL Cholesterol 97 mg/dL (40-60); LDL Cholesterol Calculated 65 mg/dL (<100); Triglycerides 96 mg/dL (35-150)
== END ==
PROVIDERS: PCP Family Medicine; Referring Provider Family Medicine; Visit Provider Family Medicine
DX: Z13.220 Encounter for screening for lipoid disorders (principal); Z79.899 Other long term (current) drug therapy
CPT/HCPCS: 36415; 80061; 80178

== ENCOUNTER 2022-12-04 12:37 | Emergency (ER) | payer OTHER, MEDICAID, SELFPAY ==
[2022-12-04] VITALS (12 sets, daily range): BP systolic 105–126; BP diastolic 53–64; PULSE 45–62; RESP 16; TEMP 36.6; O2SAT 98–100; BMI 26.1
--- NOTE | 2022-12-04 14:17 | DI.RAD.S_ITS ---
PROCEDURE: XR ACUTE ABDOMEN SERIES INDICATIONS: abd pain/constipation TECHNIQUE: One view chest and two views of the abdomen were acquired. COMPARISON: [facility], CT, CT ABDOMEN PELVIS W CON, 05/22/2022, 15:47. FINDINGS: Surgical changes and devices: None. Chest: Lungs are clear. Heart size is normal. No pleural effusions. No pneumoperitoneum. Abdomen: Bowel gas pattern is nonobstructive. No suspicious calcifications. Redemonstration of 9 mm oval calcification projecting in the right upper quadrant compatible with previously seen gallstone. Otherwise, no suspicious calcifications to suggest presence renal stones. Visualized solid organ contours appear normal. Bones: No suspicious bony lesions. IMPRESSION: Chest and abdomen without acute radiographic abnormalities. Dictated by: Chaim York M.D. on 12/04/2022 at 15:07 Approved by: Chaim York M.D. on 12/04/2022 at 15:11
[2022-12-04 16:52] LABS: Add Manual Diff / Slide Review NO; Basophils Absolute Auto 0 /uL (0-100); Basophils Percent Auto 0.7 % (0-2); Eosinophils Absolute Auto 200 /uL (0-450); Eosinophils Percent Auto 2.2 % (2-4); Hematocrit 41.2 % (36-46); Hemoglobin 13.9 g/dL (12.0-16.0); Lymphocytes Absolute Auto 2400 /uL (1100-4500); Lymphocytes Percent Auto 31.7 % (25-40); Mean Corpuscular HGB Conc 33.7 % (30-36); Mean Corpuscular Hemoglobin 33.9 PG (26-34); Mean Corpuscular Volume 100.8 fL (80-100); Monocytes Absolute Auto 700 /uL (0-900); Monocytes Percent Auto 9.2 % (3-14); Neutrophils Absolute Auto 4200 /uL (1500-7000); Neutrophils Percent Auto 56.2 % (50-75); Platelet Count 235 X10^3/uL (150-400); Red Blood Cell Count 4.08 X10^6/uL (4.0-5.2); Red Cell Distribution Width 13.1 % (11.6-14.8); White Blood Cell Count 7.5 X10^3/uL (4.5-11.0)
[2022-12-04 17:03] LABS: Alanine Aminotransferase 29 IU/L (<35); Albumin 4.4 g/dL (3.5-5.0); Albumin Globulin Ratio 1.4 (1.0-2.8); Alkaline Phosphatase 67 U/L (38-126); Aspartate Aminotransferase 31 IU/L (14-36); Bilirubin Total 0.8 mg/dL (0.2-1.3); Blood Urea Nitrogen 10 mg/dL (7-17); Calcium 9.5 mg/dL (8.4-10.2); Carbon Dioxide 25 mmol/L (22-32); Chloride 101 mmol/L (98-107); Estimated Glomerular Filt Rate > 60 mL/min (>60); Globulin 3.2 g/dL (1.7-4.1); Glucose 100 mg/dL (70-100); HEMOLYSIS 16 (0-50); Lipase 110 U/L (23-300); Potassium 3.8 mmol/L (3.4-5.1); Sodium 134 mmol/L (137-145); Total Protein 7.6 g/dL (6.3-8.2)
--- NOTE | 2022-12-04 19:12 | DI.CT.S_ITS ---
PROCEDURE: CT ABDOMEN PELVIS W CON INDICATIONS: Constipation; abd pain TECHNIQUE: After the administration of IV contrast, axial sections were acquired from the lung bases to the pubic symphysis. Coronal and sagittal reformats were performed. For radiation dose reduction, the following was used: automated exposure control, adjustment of mA and/or kV according to patient size. COMPARISON: [facility], CR, XR ACUTE ABDOMEN SERIES, 12/04/2022, 14:36. [facility], CT, CT ABDOMEN PELVIS W CON, 05/22/2022, 15:47. FINDINGS: Image quality: Excellent. Lung bases: Unremarkable. Heart: No significant findings. ABDOMEN: Liver: No focal lesion. Gallbladder: Gallstone measuring 0.7 cm. Biliary ducts: Unremarkable. Pancreas: Unremarkable. Spleen: Unremarkable. Adrenal Glands: Unremarkable. Kidneys and Ureters: No hydronephrosis. Stomach and Bowel: Stomach, small bowel loops, and colon are unremarkable. Normal appendix. Peritoneum: No abnormal intraperitoneal fluid. No free air. Ventral Wall: No hernia. Abdominal Nodes: No retroperitoneal or mesenteric adenopathy by size criteria. Vessels: Aorta and inferior vena cava are normal in size. PELVIS: Pelvic Organs: Anteverted uterus. Bladder: Unremarkable. Pelvic Nodes: No enlarged lymph nodes. Miscellaneous: No inguinal hernias are seen. Bones: No suspicious lesion. IMPRESSION: No acute abnormality identified. No free fluid. Normal appendix. Gallstone. Dictated by: Gael Palacios M.D. on 12/04/2022 at 20:23 Approved by: Gael Palacios M.D. on 12/04/2022 at 20:27
--- NOTE | 2022-12-04 20:18 | ED_ITS ---
HPI - Abdominal Pain <Kathy Castillo PA-C - Last Filed: 12/04/22 20:39> General Chief Complaint: Abdominal Pain Stated Complaint: CONSTIPATED T-7 TONGUE WHITE EYES YELLOW Time Seen by Provider: 12/04/22 18:17 Source: patient Mode of arrival: Ambulatory History of Present Illness HPI narrative: 57-year-old female with past medical history bipolar disorder, insomnia presents to the ED with constipation. Patient states that she is not had a bowel movement in 9 days, is unable to eat because she has not had a bowel movement. Patient also endorses nausea. Patient denies fever, chills, chest pain, shortness of breath, vomiting, dysuria, lightheadedness, dizziness, syncope. Patient endorses alcohol use, marijuana use. Patient is a daily smoker. Patient states that the constipation has been refractory to several [id number] laxatives. Patient also states that she is able to feel some lumps in the supraumbilical region that feel new. This is right around the region where she is had a hernia repair. Related Data Home Medications Medication Instructions Recorded Confirmed methylphenidate HCl 10 mg tablet 10 mg PO BID 09/30/21 02/23/22 trazodone 100 mg tablet 100 mg PO BEDTIME 02/23/22 02/23/22 Previous Rx's Medication Instructions Recorded lithium carbonate 300 mg capsule 300 mg PO BID #180 caps 08/04/21 cyclobenzaprine 10 mg tablet 10 mg PO TID PRN muscle spasm #30 02/23/22 tabs trazodone 100 mg tablet 100 mg PO BEDTIME PRN insomnia #7 05/22/22 tabs Allergies Allergy/AdvReac Type Severity Reaction Status Date / Time No Known Drug Allergies Allergy Verified 09/30/21 16:05 Review of Systems <Kathy Castillo PA-C - Last Filed: 12/04/22 20:39> Review of Systems ROS Unobtainable: All systems reviewed & are unremarkable except as noted in HPI and below Constitutional Constitutional: Denies chills, Denies fatigue, Denies fever(s), Denies frequent falls, Denies lethargy and Denies weakness Eyes Eyes: Denies change in vision, Denies eye discharge, Denies irritation and Denies loss of vision ENT Ears, Nose, Mouth, and Throat: Denies change in voice, Denies dizziness, Denies neck pain, Denies sore throat and Denies throat swelling Cardiovascular Cardiovascular: Denies chest pain, Denies irregular heart rhythm, Denies lightheadedness, Denies palpitations, Denies dyspnea, Denies dyspnea on exertion and Denies orthopnea Respiratory Respiratory: Denies cough, Denies dyspnea, Denies dyspnea on exertion and Denies wheezing Gastrointestinal Gastrointestinal: Denies abdominal pain, Denies change in bowel habits, Reports constipation, Denies diarrhea, Reports nausea and Denies vomiting Genitourinary Genitourinary: Denies hematuria, Denies flank pain, Denies urinary incontinence and Denies urinary urgency Musculoskeletal Musculoskeletal: Denies back pain, Denies muscle weakness, Denies neck pain, Denies numbness and Denies tingling Integumentary/Breasts Skin/Breast: Denies pruritus, Denies erythema, Denies rash and Denies wounds Neurologic Neurologic: Denies behavioral changes, Denies confusion, Denies dizziness, Denies frequent falls, Denies loss of vision, Denies numbness, Denies tingling and Denies weakness Psychiatric Psychiatric: Denies anxiety, Denies behavioral changes, Denies confusion, Denies depression, Denies homicidal ideation and Denies suicidal ideation Endocrine Endocrine: Denies fatigue, Denies flushing and Denies palpitations Hematologic/Lymphatic Hematologic/Lymphatic: Denies easy bruising Allergic/Immunologic Allergic/Immunologic: Denies urticaria, Denies throat swelling and Denies wheezing Patient History <Kathy Castillo PA-C - Last Filed: 12/04/22 20:39> Medical History Alcohol use disorder Anxiety (~2006) Asthma Chickenpox (~1974) Low back pain radiating to left leg Nightmares On valproic acid therapy Ovarian cyst (~1986) Tobacco use disorder Tobacco use disorder, moderate, in early remission Ventral hernia Surgical History Anesthesia History of removal of ovarian cyst (~1985) Hx of hernia repair (04/07/19) Status post delivery (~1986) Status post delivery (~1991) Status post ORIF of fracture of ankle (~1993) Tubal (~1990) Family History Father Age: 90 Alcoholism Grandfather No problems noted. Grandmother No problems noted. Grandfather No problems noted. Grandmother No problems noted. Social History marital status: unknown household members: family occupational status: previously employed Smoking Status: Former smoker alcohol intake: current substance use type: does not use Smoking Status: Former smoker alcohol intake frequency: a few times a week Substance Use Type: marijuana Exam <Kathy Castillo PA-C - Last Filed: 12/04/22 20:39> Narrative Exam Narrative: Const General:?cooperative, healthy appearing and comfortable HENLA Head:?normal to inspection Ears:?hearing grossly normal bilaterally Nose:?external nose normal Face and sinus:?normal facial exam and sinuses nontender Mouth:?oral mucosae normal Throat:?posterior oropharynx normal Eyes General:?appearance normal, both eyes and all related structures Neck Neck:?normal visual inspection and no lymphadenopathy noted Resp Effort & Inspection:?normal respiratory effort Auscultation:?clear to auscultation bilaterally Cardio Rate:?regular rate Rhythm:?regular rhythm GI Abdomen is soft, nondistended. Abdomen is mildly tender to palpation in the umbilical, epigastric region. There are some palpable lumps in the supraumbilical region in the area where the patient had a prior hernia repair, possibly scar tissue Neuro General:?patient alert, patient awake and patient oriented x3 Initial Vital Signs Initial Vital Signs: Vital Signs Temperature 97.8 F 12/04/22 13:19 Pulse Rate 62 12/04/22 13:19 Respiratory Rate 16 12/04/22 13:19 Blood Pressure 108/53 L 12/04/22 13:19 Pulse Oximetry 98 12/04/22 13:19 Oxygen Delivery Method Room Air 12/04/22 13:19 <Maciel Amin DO - Last Filed: 12/05/22 05:23> Initial Vital Signs Initial Vital Signs: Vital Signs Temperature 97.8 F 12/04/22 13:19 Pulse Rate 62 12/04/22 13:19 Respiratory Rate 16 12/04/22 13:19 Blood Pressure 108/53 L 12/04/22 13:19 Pulse Oximetry 98 12/04/22 13:19 Oxygen Delivery Method Room Air 12/04/22 13:19 Course <Kathy Castillo PA-C - Last Filed: 12/04/22 20:39> Orders Ordered: Discontinued Medications Ondansetron HCl (Ondansetron 4 Mg Odt) 4 mg PO NOW PRN PRN Reason: Nausea And Vomiting Ondansetron HCl (Ondansetron 4 Mg/2 Ml Inj) 4 mg IV NOW PRN PRN Reason: Nausea And Vomiting Vital Signs Vital signs: Vital Signs - 8 hr 12/04/22 13:19 12/04/22 16:32 12/04/22 16:33 Temperature 97.8 F Pulse Rate 62 54 L 53 L Respiratory Rate 16 Blood Pressure 108/53 L Pulse Oximetry 98 99 100 Oxygen Delivery Method Room Air Room Air 12/04/22 16:33 12/04/22 17:00 12/04/22 17:00 Temperature Pulse Rate 51 L Respiratory Rate Blood Pressure 105/63 118/58 L Pulse Oximetry 100 Oxygen Delivery Method 12/04/22 17:30 12/04/22 17:30 12/04/22 18:00 Temperature Pulse Rate 45 L Respiratory Rate Blood Pressure 122/58 L 123/64 Pulse Oximetry 100 Oxygen Delivery Method 12/04/22 18:00 12/04/22 18:30 12/04/22 18:30 Temperature Pulse Rate 55 L 54 L Respiratory Rate Blood Pressure 123/58 L Pulse Oximetry 100 100 Oxygen Delivery Method 12/04/22 19:00 12/04/22 19:00 Temperature Pulse Rate 53 L Respiratory Rate Blood Pressure 117/55 L Pulse Oximetry 100 Oxygen Delivery Method <Maciel Amin DO - Last Filed: 12/05/22 05:23> Orders Ordered: Discontinued Medications Ondansetron HCl (Ondansetron 4 Mg Odt) 4 mg PO NOW PRN PRN Reason: Nausea And Vomiting Ondansetron HCl (Ondansetron 4 Mg/2 Ml Inj) 4 mg IV NOW PRN PRN Reason: Nausea And Vomiting Vital Signs Vital signs: Vital Signs - 8 hr 12/04/22 13:19 12/04/22 16:32 12/04/22 16:33 Temperature 97.8 F Pulse Rate 62 54 L 53 L Respiratory Rate 16 Blood Pressure 108/53 L Pulse Oximetry 98 99 100 Oxygen Delivery Method Room Air Room Air 12/04/22 16:33 12/04/22 17:00 12/04/22 17:00 Temperature Pulse Rate 51 L Respiratory Rate Blood Pressure 105/63 118/58 L Pulse Oximetry 100 Oxygen Delivery Method 12/04/22 17:30 12/04/22 17:30 12/04/22 18:00 Temperature Pulse Rate 45 L Respiratory Rate Blood Pressure 122/58 L 123/64 Pulse Oximetry 100 Oxygen Delivery Method 12/04/22 18:00 12/04/22 18:30 12/04/22 18:30 Temperature Pulse Rate 55 L 54 L Respiratory Rate Blood Pressure 123/58 L Pulse Oximetry 100 100 Oxygen Delivery Method 12/04/22 19:00 12/04/22 19:00 Temperature Pulse Rate 53 L Respiratory Rate Blood Pressure 117/55 L Pulse Oximetry 100 Oxygen Delivery Method MDM - Abdominal Pain <Kathy Castillo PA-C - Last Filed: 12/04/22 20:39> Lab Data 12/04/22 16:31 12/04/22 16:31 Labs: Lab Results 12/04/22 12/04/22 Range/Units 16:31 16:31 WBC 7.5 (4.5-11.0) X10^3/uL RBC 4.08 (4.0-5.2) X10^6/uL Hgb 13.9 (12.0-16.0) g/dL Hct 41.2 (36-46) % MCV 100.8 H (80-100) fL MCH 33.9 (26-34) PG MCHC 33.7 (30-36) % RDW 13.1 (11.6-14.8) % Plt Count 235 (150-400) X10^3/uL Neut % (Auto) 56.2 (50-75) % Lymph % (Auto) 31.7 (25-40) % [place] % (Auto) 9.2 (3-14) % Eos % (Auto) 2.2 (2-4) % Baso % (Auto) 0.7 (0-2) % Neut # (Auto) 4200 (4609-9529) /uL Lymph # (Auto) 2400 (7913-4673) /uL [place] # (Auto) 700 (0-900) /uL Eos # (Auto) 200 (0-450) /uL Baso # (Auto) 0 (0-100) /uL Sodium 134 L (137-145) mmol/L Potassium 3.8 (3.4-5.1) mmol/L Chloride 101 (98-107) mmol/L Carbon Dioxide 25 (22-32) mmol/L BUN 10 (7-17) mg/dL Creatinine 0.77 (0.52-1.04) mg/dL Estimated GFR > 60 (>60) mL/min BUN/Creatinine Ratio 13.0 (6-22) Glucose 100 (70-100) mg/dL Calcium 9.5 (8.4-10.2) mg/dL Total Bilirubin 0.8 (0.2-1.3) mg/dL AST 31 (14-36) IU/L ALT 29 (<35) IU/L Alkaline Phosphatase 67 (38-126) U/L Total Protein 7.6 (6.3-8.2) g/dL Albumin 4.4 (3.5-5.0) g/dL Globulin 3.2 (1.7-4.1) g/dL Albumin/Globulin Ratio 1.4 (1.0-2.8) Lipase 110 (23-300) U/L Point of care testing: Urine Dip Bedside Urine Glucose Negative Bedside Urine Bilirubin - Negative Bedside Urine Ketone - Negative Urine Specific [place] 1.005 Bedside Urine Occult Blood - Negative Bedside Urine pH 7.0 Bedside Urine Protein - Negative Bedside Urine Urobilinogen - Negative Bedside Urine Nitrite - Negative Bedside Urine Leukocytes - Negative Esterase MDM Narrative Medical decision making narrative: 57-year-old female with past medical history bipolar disorder, insomnia presents to the ED with constipation. Concern for constipation versus bowel obstruction versus hernia versus other intra-abdominal pathology versus other. Will obtain labs, CT abdomen pelvis. Will give Zofran. Will reassess. Labs, CT abdomen pelvis with no acute findings. Discussed bowel regimen to treat constipation. Recommend a dose of magnesium citrate, followed by MiraLax for several weeks. Recommend good fiber and water intake. ED return precautions were discussed with patient. Patient verbalized understanding. Medical records reviewed: Yes <Maciel Amin DO - Last Filed: 12/05/22 05:23> Lab Data Labs: Lab Results 12/04/22 12/04/22 Range/Units 16:31 16:31 WBC 7.5 (4.5-11.0) X10^3/uL RBC 4.08 (4.0-5.2) X10^6/uL Hgb 13.9 (12.0-16.0) g/dL Hct 41.2 (36-46) % MCV 100.8 H (80-100) fL MCH 33.9 (26-34) PG MCHC 33.7 (30-36) % RDW 13.1 (11.6-14.8) % Plt Count 235 (150-400) X10^3/uL Neut % (Auto) 56.2 (50-75) % Lymph % (Auto) 31.7 (25-40) % [place] % (Auto) 9.2 (3-14) % Eos % (Auto) 2.2 (2-4) % Baso % (Auto) 0.7 (0-2) % Neut # (Auto) 4200 (0161-4824) /uL Lymph # (Auto) 2400 (0349-8858) /uL [place] # (Auto) 700 (0-900) /uL Eos # (Auto) 200 (0-450) /uL Baso # (Auto) 0 (0-100) /uL Sodium 134 L (137-145) mmol/L Potassium 3.8 (3.4-5.1) mmol/L Chloride 101 (98-107) mmol/L Carbon Dioxide 25 (22-32) mmol/L BUN 10 (7-17) mg/dL Creatinine 0.77 (0.52-1.04) mg/dL Estimated GFR > 60 (>60) mL/min BUN/Creatinine Ratio 13.0 (6-22) Glucose 100 (70-100) mg/dL Calcium 9.5 (8.4-10.2) mg/dL Total Bilirubin 0.8 (0.2-1.3) mg/dL AST 31 (14-36) IU/L ALT 29 (<35) IU/L Alkaline Phosphatase 67 (38-126) U/L Total Protein 7.6 (6.3-8.2) g/dL Albumin 4.4 (3.5-5.0) g/dL Globulin 3.2 (1.7-4.1) g/dL Albumin/Globulin Ratio 1.4 (1.0-2.8) Lipase 110 (23-300) U/L Point of care testing: Urine Dip Bedside Urine Glucose Negative Bedside Urine Bilirubin - Negative Bedside Urine Ketone - Negative Urine Specific [place] 1.005 Bedside Urine Occult Blood - Negative Bedside Urine pH 7.0 Bedside Urine Protein - Negative Bedside Urine Urobilinogen - Negative Bedside Urine Nitrite - Negative Bedside Urine Leukocytes - Negative Esterase Discharge Plan Departure Patient Disposition: Home Clinical Impression: Constipation Instructions: DI for Constipation Activity Restrictions/Additional Instructions: You were evaluated in the ED today for constipation. Your labs and CT were normal. You may take magnesium citrate which is available [id number] for the constipation. You may also continue to take MiraLax daily for a few weeks. Please continue to hydrate well, consume adequate fiber. Return to the ED if your symptoms worsen, you are persistently vomiting, you experience fever or chills. Prescriptions: No Action lithium carbonate 300 mg capsule 300 mg PO BID Qty: 180 0RF methylphenidate HCl 10 mg tablet 10 mg PO BID trazodone 100 mg tablet 100 mg PO BEDTIME Patient Comments: TAKE ONE TABLET BY MOUTH NIGHTLY AT BEDTIME NEEDED FOR SLEEPLESSNESS cyclobenzaprine 10 mg tablet 10 mg PO TID PRN (Reason: muscle spasm) Qty: 30 0RF Rx Instructions: Caution regarding poss sedation trazodone 100 mg tablet 100 mg PO BEDTIME PRN (Reason: insomnia) Qty: 7 0RF Referrals: Veronica Berry DO [Primary Care Provider] - Stand Alone Forms: Patient Portal/API <Maciel Amin DO - Last Filed: 12/05/22 05:23> Cosign ED Attending Annaature Attestation: I was immediately available in the department for consultation. This documentation has been reviewed and I agree with assessment and plan. Supervised by Maciel Amin DO
== END 2022-12-04 20:50 | disposition home or self-care (01) ==
PROVIDERS: Emergency Medicine; Emergency Provider Student in an Organized Health Care Education/Training Program; PCP Family Medicine
DX: K59.00 Constipation, unspecified (principal); R10.9 Unspecified abdominal pain
CPT/HCPCS: 36415; 74022; 74177; 80053; 81003; 83690; 85025; 93005; 99284; Q9967

== ENCOUNTER → 2023-02-08 10:23 | Outpatient (CLI) | payer OTHER, MEDICAID, SELFPAY ==
[2023-02-08 13:46] LABS: Cholesterol 172 mg/dL (140-199); HDL Cholesterol 100 mg/dL (40-60); LDL Cholesterol Calculated 63 mg/dL (<100); Lithium 0.5 mmol/L (0.6-1.2); Triglycerides 43 mg/dL (35-150)
[2023-02-08 14:12] LABS: TSH w/ Reflex to FT4 6.46 uIU/mL (0.47-4.68)
[2023-02-08 14:45] LABS: Free T4, Direct Thyroxine 1.17 ng/dL (0.78-2.19)
== END ==
PROVIDERS: PCP Family Medicine; Referring Provider Family Medicine; Visit Provider Family Medicine
DX: E03.9 Hypothyroidism, unspecified (principal); F10.21 Alcohol dependence, in remission; F17.200 Nicotine dependence, unspecified, uncomplicated; F31.9 Bipolar disorder, unspecified; F90.9 Attention-deficit hyperactivity disorder, unspecified type; Z79.899 Other long term (current) drug therapy
CPT/HCPCS: 36415; 80061; 80178; 84439; 84443

== ENCOUNTER 2023-03-24 20:21 | Emergency (ER) | payer OTHER, MEDICAID, SELFPAY ==
[2023-03-24 20:26] VITALS: BP 138/65; PULSE 60; RESP 18; TEMP 36.9; O2SAT 100; BMI 25.4
--- NOTE | 2023-03-24 20:35 | ED_ITS ---
HPI - Allergic Reaction General Chief complaint: Allergic Reaction Stated complaint: bad reaction/allergic ?? to new medication pain Time Seen by Provider: 03/24/23 20:33 Source: patient Mode of arrival: Ambulatory History of Present Illness HPI narrative: 57-year-old female smoker with history of bipolar and ADHD presents with multiple symptoms after starting a new medication. She states that she had been on Ritalin for some time but due to national shortage is she is unable to continue taking it. Her provider just started her on Adderall 15 mg 3 times daily 3 days ago in soon after taking her 1st dose she began developing symptoms including feeling shaky and tremulous as well as increasingly anxious, nauseated and generally unwell. She took the prescribed dosing the 1st 2 days and today only took a single dose but states that because she felt unwell she did not take her other bipolar medications. She denies suicidal or homicidal ideation. She denies any swelling of tongue, lip, throat. She denies any difficulty breat espinoza, or rash. Related Data Home Medications Medication Instructions Recorded Confirmed trazodone 100 mg tablet 100 mg PO BEDTIME 02/23/22 02/06/23 lamotrigine 25 mg tablet 25 mg PO BID 02/06/23 02/06/23 lithium carbonate 150 mg capsule 150 mg PO BID 02/06/23 02/06/23 methylphenidate HCl 20 mg tablet 20 mg PO BID 02/06/23 02/06/23 Previous Rx's Medication Instructions Recorded lithium carbonate 300 mg capsule 300 mg PO BID #180 caps 08/04/21 varenicline 0.5 mg (11)-1 mg (42) See Rx Instructions PO PER PKG DIR 02/06/23 tablets in a dose pack ([facility] #53 ea Starting Month Box) Allergies Allergy/AdvReac Type Severity Reaction Status Date / Time No Known Drug Allergies Allergy Verified 02/06/23 08:35 Review of Systems Review of Systems Narrative: GENERAL: Denies chills, fatigue, malaise, fever, sweats. HEENT: Denies sinus pain, ear pain, sore throat, difficulty swallowing, dizziness. RESPIRATORY: Denies dyspnea, cough, wheezing, hemoptysis, sputum. CARDIOVASCULAR: Denies chest pain, palpitations, orthopnea, edema, GASTROINTESTINAL: Denies nausea, vomiting, abdominal pain, diarrhea, constipation, melena. : Denies dysuria, frequency, incontinence, hematuria, urinary retention. MUSCULOSKELETAL: denies weakness, joint pain, or bony pain SKIN: Denies rash, skin lesions, or other NEUROLOGIC: see HPI PSYCHIATRIC: see HPI 12 point review of systems is negative except for those stated above Patient History Medical History Alcohol use disorder Anxiety (~2006) Asthma Chickenpox (~1974) Low back pain radiating to left leg Nightmares On valproic acid therapy Ovarian cyst (~1986) Tobacco use disorder Tobacco use disorder, moderate, in early remission Ventral hernia Surgical History Anesthesia History of removal of ovarian cyst (~1985) Hx of hernia repair (04/07/19) Status post delivery (~1986) Status post delivery (~1991) Status post ORIF of fracture of ankle (~1993) Tubal (~1990) Family History Father Age: 91 Alcoholism Grandfather No problems noted. Grandmother No problems noted. Grandfather No problems noted. Grandmother No problems noted. Social History marital status: unknown household members: family occupational status: previously employed Smoking Status: Current every day smoker Tobacco: How many years used: 20 quit status: considering quitting alcohol intake: current (3 beers per day ) substance use type: former substance user (Quit in 30s), heroin (Former, quit in 30s) and methamphetamine (former, quit in 30s) Smoking Status: Current every day smoker alcohol intake frequency: a few times a week Substance Use Type: does not use Exam Narrative Exam Narrative: GENERAL: [57] year old patient appears stated age. Well-developed patient, in mild distress. Anxious HEAD: Atraumatic. Normocephalic. EYES: Pupils equal round and reactive. Extraocular motions intact. No scleral icterus. No injection or drainage. ENT: Nose without bleeding, purulent drainage. Throat without erythema, tonsillar hypertrophy or exudate. Airway patent. Controlling secretions and airway without difficulty NECK: Trachea midline. Non tender CARDIOVASCULAR: Regular rate and rhythm without murmurs, gallops, or rubs. RESPIRATORY: Clear to auscultation. Breath sounds equal bilaterally. No wheezes, rales, or rhonchi. GASTROINTESTINAL: Abdomen soft, non-tender, nondistended. EXTREMITIES: No edema or joint tenderness. BACK: Nontender without deformity or crepitance. No flank tenderness. NEURO: AOx3. SKIN: No rash or erythema of visible areas Initial Vital Signs Initial Vital Signs: Vital Signs Temperature 98.5 F 03/24/23 20:26 Pulse Rate 60 03/24/23 20:26 Respiratory Rate 18 03/24/23 20:26 Blood Pressure 138/65 03/24/23 20:26 Pulse Oximetry 100 03/24/23 20:26 Oxygen Delivery Method Room Air 03/24/23 20:26 Course Orders Ordered: ED Orders 03/24/23 21:05 Complete Blood Count AUTO DIFF Stat Comprehensive Metabolic Panel Stat Magnesium Stat 03/24/23 21:17 Urine Drug Screen, Rapid Stat Vital Signs Vital signs: Vital Signs - 8 hr 03/24/23 20:26 03/24/23 21:01 03/24/23 21:01 Temperature 98.5 F Pulse Rate 60 59 L Respiratory Rate 18 Blood Pressure 138/65 134/63 Pulse Oximetry 100 100 Oxygen Delivery Method Room Air Room Air 03/24/23 22:06 Temperature Pulse Rate 55 L Respiratory Rate 16 Blood Pressure 130/59 L Pulse Oximetry 99 Oxygen Delivery Method Room Air MDM - Allergic Reaction Lab Data 03/24/23 21:05 03/24/23 21:05 Labs: Lab Results 03/24/23 03/24/23 03/24/23 Range/Units 21:05 21:05 21:17 WBC 6.1 (4.5-11.0) X10^3/uL RBC 3.91 L (4.0-5.2) X10^6/uL Hgb 13.1 (12.0-16.0) g/dL Hct 38.8 (36-46) % MCV 99.2 (80-100) fL MCH 33.4 (26-34) PG MCHC 33.7 (30-36) % RDW 13.1 (11.6-14.8) % Plt Count 187 (150-400) X10^3/uL Neut % (Auto) 47.6 L (50-75) % Lymph % (Auto) 39.0 (25-40) % [place] % (Auto) 10.2 (3-14) % Eos % (Auto) 2.5 (2-4) % Baso % (Auto) 0.7 (0-2) % Neut # (Auto) 2900 (0967-1301) /uL Lymph # (Auto) 2400 (0631-1893) /uL [place] # (Auto) 600 (0-900) /uL Eos # (Auto) 200 (0-450) /uL Baso # (Auto) 0 (0-100) /uL Sodium 138 (137-145) mmol/L Potassium 3.9 (3.4-5.1) mmol/L Chloride 105 (98-107) mmol/L Carbon Dioxide 27 (22-32) mmol/L BUN 10 (7-17) mg/dL Creatinine 0.72 (0.52-1.04) mg/dL Estimated GFR > 60 (>60) mL/min BUN/Creatinine Ratio 13.9 (6-22) Glucose 85 (70-100) mg/dL Calcium 9.2 (8.4-10.2) mg/dL Magnesium 2.0 (1.6-2.3) mg/dL Total Bilirubin 0.5 (0.2-1.3) mg/dL AST 51 H (14-36) IU/L ALT 57 H (<35) IU/L Alkaline Phosphatase 55 (38-126) U/L Total Protein 7.2 (6.3-8.2) g/dL Albumin 4.1 (3.5-5.0) g/dL Globulin 3.1 (1.7-4.1) g/dL Albumin/Globulin Ratio 1.3 (1.0-2.8) U Opiates 300ng/mL cut Negative (Negative) Ur Oxycodone Screen Negative (Negative) Urine Methadone Screen Negative (Negative) Ur Barbiturates Screen Negative (Negative) U Tricyclic Antidepress Negative (Negative) Ur Phencyclidine Scrn Negative (Negative) Ur Amphetamines Screen Positive H (Negative) U Methamphetamines Scrn Negative (Negative) Ur MDMA Scrn (Ecstasy) Negative (Negative) U Benzodiazepines Scrn Negative (Negative) Urine Cocaine Screen Negative (Negative) U Marijuana (THC) Screen Negative (Negative) Urine Dip Bedside Urine Glucose Negative Bedside Urine Bilirubin - Negative Bedside Urine Ketone - Negative Urine Specific [place] 1.015 Bedside Urine Occult Blood - Negative Bedside Urine pH 6.0 Bedside Urine Protein - Negative Bedside Urine Urobilinogen - Negative Bedside Urine Nitrite - Negative Bedside Urine Leukocytes - Negative Esterase MDM Narrative Medical decision making narrative: [57] year old patient presents with symptoms after starting new medication Multiple etiologies for patient's symptoms considered including, but not limited to: [medication reaction vs. allergic reaction vs. other] Prior Charts reviewed in our EMR Primary Historian: patient Labs reviewed and interpreted by myself: No leukocytosis, left shift, or electrolyte abnormality Patient's history and physical exam are reassuring. No signs of respiratory distress, trouble swallowing, breathing or rash. Symptoms started soon after switching to Adderall. It seems most likely to be in unintended affected medication as opposed to an allergic reaction given the absence of histamine type response. We discussed multiple options for how to proceed including stopping the medication altogether, continuing to take it as prescribed to allow things to level out or take a lesser dose. After discussion of risks and benefits we agree that taking a lesser dose for a few days is appropriate Findings and discharge diagnosis discussed with patient/family followed by verbalization of understanding Return precautions discussed with patient/family whom verbalize understanding of diagnosis and plan Discharge Plan Departure Patient Disposition: Home Clinical Impression: Bipolar disorder, Adverse effects of medication Activity Restrictions/Additional Instructions: *You have been diagnosed with [adverse reaction to new medication. As we discussed your history and physical exam as well as lab work are very reassuring] *What to do: *Please continue to take your regular medications as directed. Also as we discussed please consider taking a decreased dose of the Adderall daily for the next few days but be sure to take all of your other medications as previously prescribed [ ] New medication prescriptions sent to your pharmacy: [ ] [ ] New medication written as a paper prescription [ ] No new medications given *Please follow up with your primary care provider in 2-3 days, call for an ap pointment. Let them know you were seen in the Emergency Department and that we ask that you be seen in follow up. We will electronically transmit a record of today's note if your PCP is in our system *If you do not have a primary care provider please contact the [facility] Resource line at [phone]. They will ask some questions about your medical history and help get you set up with a doctor in the community. *Return to Emergency Department if you should have any new, worsening or co ncerning symptoms Prescriptions: No Action lithium carbonate 300 mg capsule 300 mg PO BID Qty: 180 0RF lithium carbonate 150 mg capsule 150 mg PO BID lamotrigine 25 mg tablet 25 mg PO BID varenicline [Chantix Starting Month Box] 0.5 mg (11)- 1 mg (42) tablets,dose pack See Rx Instructions PO PER PKG DIR Qty: 53 0RF Rx Instructions: PO PER PKG DIR methylphenidate HCl 20 mg tablet 20 mg PO BID trazodone 100 mg tablet 100 mg PO BEDTIME Patient Comments: TAKE ONE TABLET BY MOUTH NIGHTLY AT BEDTIME NEEDED FOR SLEEPLESSNESS Referrals: Veronica Berry DO [Primary Care Provider] - Stand Alone Forms: Patient Portal/API
[2023-03-24 21:01] VITALS: BP 134/63; PULSE 59; O2SAT 100
--- NOTE | 2023-03-24 21:07 | PC.NURSE ---
Pt also c/o of increasing bump on bottom of left foot and intermittent left leg burning and swelling.
[2023-03-24 21:17] LABS: Add Manual Diff / Slide Review NO; Basophils Absolute Auto 0 /uL (0-100); Basophils Percent Auto 0.7 % (0-2); Eosinophils Absolute Auto 200 /uL (0-450); Eosinophils Percent Auto 2.5 % (2-4); Hematocrit 38.8 % (36-46); Hemoglobin 13.1 g/dL (12.0-16.0); Lymphocytes Absolute Auto 2400 /uL (1100-4500); Mean Corpuscular HGB Conc 33.7 % (30-36); Mean Corpuscular Hemoglobin 33.4 PG (26-34); Mean Corpuscular Volume 99.2 fL (80-100); Monocytes Absolute Auto 600 /uL (0-900); Monocytes Percent Auto 10.2 % (3-14); Neutrophils Absolute Auto 2900 /uL (1500-7000); Neutrophils Percent Auto 47.6 % (50-75); Platelet Count 187 X10^3/uL (150-400); Red Blood Cell Count 3.91 X10^6/uL (4.0-5.2); Red Cell Distribution Width 13.1 % (11.6-14.8); White Blood Cell Count 6.1 X10^3/uL (4.5-11.0)
[2023-03-24 21:28] LABS: Alanine Aminotransferase 57 IU/L (<35); Albumin 4.1 g/dL (3.5-5.0); Albumin Globulin Ratio 1.3 (1.0-2.8); Alkaline Phosphatase 55 U/L (38-126); Aspartate Aminotransferase 51 IU/L (14-36); BUN Creatinine Ratio 13.9 (6-22); Bilirubin Total 0.5 mg/dL (0.2-1.3); Blood Urea Nitrogen 10 mg/dL (7-17); Calcium 9.2 mg/dL (8.4-10.2); Carbon Dioxide 27 mmol/L (22-32); Chloride 105 mmol/L (98-107); Estimated Glomerular Filt Rate > 60 mL/min (>60); Globulin 3.1 g/dL (1.7-4.1); Glucose 85 mg/dL (70-100); HEMOLYSIS 20 (0-50); Potassium 3.9 mmol/L (3.4-5.1); Sodium 138 mmol/L (137-145); Total Protein 7.2 g/dL (6.3-8.2)
[2023-03-24 21:29] LABS: Ur Creatinine Normal (Normal); Ur Specific Gravity Normal (Normal); Urine pH Normal (Normal)
[2023-03-24 21:30] LABS: UR Morphine/Opiate cutoff 300 Negative (Negative); Urine Amphetamines Positive (Negative); Urine Barbiturates Negative (Negative); Urine Benzodiazepines Negative (Negative); Urine Cocaine Negative (Negative); Urine MDMA Negative (Negative); Urine Methadone Negative (Negative); Urine Methamphetamines Negative (Negative); Urine Oxycodone Negative (Negative); Urine Phencyclidine Negative (Negative); Urine Tetrahydrocannabinol Negative (Negative); Urine Tricyclic Antidepressant Negative (Negative)
[2023-03-24 22:06] VITALS: BP 130/59; PULSE 55; RESP 16; O2SAT 99
== END 2023-03-24 22:09 | disposition home or self-care (01) ==
PROVIDERS: Emergency Provider Emergency Medicine; PCP Family Medicine
DX: F31.9 Bipolar disorder, unspecified (principal); T50.905A Adverse effect of unspecified drugs, medicaments and biological substances, initial encounter
CPT/HCPCS: 36415; 80053; 80305; 81003; 83735; 85025; 99282; 99283

== ENCOUNTER → 2023-04-06 11:01 | Outpatient (CLI) | payer OTHER, MEDICAID, SELFPAY ==
--- NOTE | 2023-04-06 11:03 | DI.US.S_ITS ---
PROCEDURE: US EXTREMITY NONVASC LOWER LT INDICATIONS: LEFT FOOT LUMP TECHNIQUE: Real-time scanning was performed of the palpable lump of the plantar surface of the left foot , with image documentation. COMPARISON: None. FINDINGS: The palpable lump in the medial posterior to mid foot plantar surface region corresponds to a hypoechoic solid heterogeneous mass with vascularity measuring 4.0 x 2.8 x 0.8 cm. IMPRESSION: The palpable lesion is a vascular mass. Recommend referral to a auto radio mechanic for biopsy or excision. Dictated by: Adi Duggan M.D. on 04/06/2023 at 13:18 Approved by: Adi Duggan M.D. on 04/06/2023 at 13:20
== END ==
PROVIDERS: PCP Family Medicine; Referring Provider Family Medicine; Visit Provider Family Medicine
DX: M79.89 Other specified soft tissue disorders (principal); R22.42 Localized swelling, mass and lump, left lower limb
CPT/HCPCS: 76882

== ENCOUNTER → 2023-08-28 12:53 | Outpatient (CLI) | payer OTHER, MEDICAID, SELFPAY ==
[2023-08-28 16:03] LABS: Lithium 0.3 mmol/L (0.6-1.2)
[2023-08-31 02:37] LABS: Lamotrigine Lamictal <1.0 ug/mL (2.0-20.0)
== END ==
PROVIDERS: PCP Family Medicine; Referring Provider Family Medicine; Visit Provider Family Medicine
DX: F31.9 Bipolar disorder, unspecified (principal); Z79.899 Other long term (current) drug therapy
CPT/HCPCS: 36415; 80175; 80178

== ENCOUNTER → 2024-08-22 09:38 | Outpatient (CLI) | payer OTHER, SELFPAY ==
[2024-08-22 10:18] LABS: Hematocrit 42.9 % (36-46); Hemoglobin 14.2 g/dL (12.0-16.0); Mean Corpuscular HGB Conc 33.1 % (30-36); Mean Corpuscular Volume 99.7 fL (80-100); Platelet Count 231 X10^3/uL (150-400); Red Blood Cell Count 4.31 X10^6/uL (4.0-5.2); Red Cell Distribution Width 13.9 % (11.6-14.8); White Blood Cell Count 4.6 X10^3/uL (4.5-11.0)
[2024-08-22 10:33] LABS: Alanine Aminotransferase 35 IU/L (<35); Albumin 4.1 g/dL (3.5-5.0); Albumin Globulin Ratio 1.5 (1.0-2.8); Alkaline Phosphatase 78 U/L (38-126); Aspartate Aminotransferase 36 IU/L (14-36); Bilirubin Total 0.5 mg/dL (0.2-1.3); Blood Urea Nitrogen 16 mg/dL (7-17); Calcium 9.6 mg/dL (8.4-10.2); Carbon Dioxide 27 mmol/L (22-32); Chloride 106 mmol/L (98-107); Cholesterol 201 mg/dL (140-199); Estimated Glomerular Filt Rate > 60 mL/min (>60); Globulin 2.8 g/dL (1.7-4.1); Glucose 93 mg/dL (70-100); HEMOLYSIS < 15 (0-50); Potassium 5.1 mmol/L (3.4-5.1); Sodium 137 mmol/L (137-145); Total Protein 6.9 g/dL (6.3-8.2); Triglycerides 67 mg/dL (35-150)
[2024-08-22 10:42] LABS: HDL Cholesterol 115 mg/dL (40-60); LDL Cholesterol Calculated 73 mg/dL (<100)
[2024-08-22 11:04] LABS: TSH w/ Reflex to FT4 6.59 uIU/mL (0.47-4.68)
[2024-08-22 11:28] LABS: Free T4, Direct Thyroxine 1.01 ng/dL (0.78-2.19)
== END ==
LOC: LAB 09:38
PROVIDERS: PCP Family Medicine; Referring Provider Family Medicine; Visit Provider Family Medicine
DX: F31.9 Bipolar disorder, unspecified (principal); F41.8 Other specified anxiety disorders; E03.9 Hypothyroidism, unspecified; R79.89 Other specified abnormal findings of blood chemistry; E88.810 Metabolic syndrome; E66.9 Obesity, unspecified
CPT/HCPCS: 36415; 80053; 80061; 83036; 84439; 84443; 85027

== ENCOUNTER → 2024-09-09 09:15 | Outpatient (CLI) | payer OTHER, SELFPAY ==
[2024-09-09 10:41] LABS: Lithium 0.8 mmol/L (0.6-1.2)
[2024-09-09 10:44] LABS: BUN Creatinine Ratio 12.6 (6-22); Blood Urea Nitrogen 12 mg/dL (7-17); Calcium 9.9 mg/dL (8.4-10.2); Carbon Dioxide 28 mmol/L (22-32); Chloride 102 mmol/L (98-107); Estimated Glomerular Filt Rate > 60 mL/min (>60); Glucose 106 mg/dL (70-100); HEMOLYSIS < 15 (0-50); Potassium 4.7 mmol/L (3.4-5.1); Sodium 136 mmol/L (137-145)
[2024-09-09 12:14] LABS: Free T4, Direct Thyroxine 0.93 ng/dL (0.78-2.19)
== END ==
PROVIDERS: PCP Family Medicine; Referring Provider Student in an Organized Health Care Education/Training Program; Visit Provider Student in an Organized Health Care Education/Training Program
DX: E03.9 Hypothyroidism, unspecified (principal); Z79.899 Other long term (current) drug therapy
CPT/HCPCS: 36415; 80048; 80178; 84439; 84443

== ENCOUNTER 2025-05-14 15:26 | Emergency (ER) | payer MEDICAID, SELFPAY ==
[2025-05-14] VITALS (13 sets, daily range): BP systolic 126–147; BP diastolic 62–74; PULSE 49–69; RESP 13–39; TEMP 36.8; O2SAT 100; BMI 24.9
--- NOTE | 2025-05-14 15:35 | DI.RAD.S_ITS ---
PROCEDURE: XR CHEST 1V INDICATIONS: Chest Pain TECHNIQUE: One view of the chest was acquired. COMPARISON: [facility], CR, XR CHEST 2V, 05/04/2020, 15:55. [facility], CR, XR CHEST 1V, 06/07/2020, 16:02. [facility], CR, XR CHEST 1V, 11/19/2021, 14:33. FINDINGS: Surgical changes and devices: None. Lungs and pleura: Lungs are clear. No pleural effusions or pneumothorax. Mediastinum: Mediastinal contours appear normal. Heart size is normal. Bones and chest wall: No suspicious bony lesions. Age-appropriate bony degenerative changes are seen. Overlying soft tissues appear unremarkable. IMPRESSION: Normal portable chest for age. Dictated by: Kash Santos M.D. on 05/14/2025 at 15:20 Approved by: Kash Santos M.D. on 05/14/2025 at 15:20
--- NOTE | 2025-05-14 15:35 | EKG_ITS ---
[address] [address] Test Date: 2025-05-14 Pat Name: Nury Salmeron Department: [facility] Room: Gender: Female Branch Account Executive: PRAVEEN : 1965 Requested By: Order Number: [id number] Reading MD: Raza Jasmine MD Measurements Intervals [place] Rate: 60 P: 72 [place]: 154 QRS: 48 QRSD: 78 T: 60 QT: 422 QTc: 422 Interpretive Statements Normal sinus rhythm Electronically Signed On 05-18-2025 7:44:05 PDT by Raza Jasmine MD
[2025-05-14 16:04] LABS: Add Manual Diff / Slide Review NO; Hematocrit 41.5 % (36-46); Hemoglobin 13.8 g/dL (12.0-16.0); Lymphocytes Absolute Auto 2500 /uL (1100-4500); Mean Corpuscular HGB Conc 33.3 % (30-36); Mean Corpuscular Hemoglobin 33.1 PG (26-34); Mean Corpuscular Volume 99.2 fL (80-100); Platelet Count 201 X10^3/uL (150-400)
[2025-05-14 16:06] LABS: INR 1.0 (0.9-1.3); Prothrombin Time 11.2 SECONDS (9.4-12.5)
[2025-05-14 16:09] LABS: PTT Partial Thromboplastin Tim 27 SECONDS (25.1-36.5)
[2025-05-14 16:10] LABS: Alanine Aminotransferase 40 IU/L (<35); Albumin 4.4 g/dL (3.5-5.0); Albumin Globulin Ratio 1.5 (1.0-2.8); Alkaline Phosphatase 60 U/L (38-126); Blood Urea Nitrogen 6 mg/dL (7-17); Calcium 9.3 mg/dL (8.4-10.2); Carbon Dioxide 27 mmol/L (22-32); Chloride 104 mmol/L (98-107); Creatine Kinase 79 U/L (30-135); Estimated Glomerular Filt Rate > 60 mL/min (>60); Globulin 2.9 g/dL (1.7-4.1); Glucose 84 mg/dL (70-99); HEMOLYSIS < 15 (0-50); Lipase 39 U/L (23-300); Magnesium 2.5 mg/dL (1.6-2.3); Potassium 4.3 mmol/L (3.4-5.1); Sodium 140 mmol/L (137-145); Total Protein 7.3 g/dL (6.3-8.2)
[2025-05-14] MEDS: ASPIRIN 81 MG CHEW TAB 324 MG PO (16:10)
[2025-05-14 16:22] LABS: NT-proBNP (BNP-Adult 18+) 134 pg/mL (<125); Troponin I < 0.012 ng/mL (0.01-0.034)
--- NOTE | 2025-05-14 18:10 | ED.CHESTPAIN ---
HPI - Chest Pain General Chief Complaint: Chest Pain Stated Complaint: chest pain/SOB/constipation Time Seen by Provider: 05/14/25 18:07 Source: patient Mode of arrival: Wheelchair Limitations: no limitations History of Present Illness HPI narrative: 59-year-old female with no known history of CAD, history of bipolar disorder on lithium, complains of abdominal discomfort and suspected constipation for the last 2 days, taking [id number] laxatives and self administered suppositories without relief, last regular full bowel movement a few days ago, still having small amounts of stool passage. No black or red stools. No fevers or chills. Also had left anterior chest discomfort earlier today that resolved without specific treatment. She has some nausea but no emesis, some brackish taste in the back of her mouth. Does not take antacids. Injury trauma new activities. Denies painful or frequent urination. Denies cough chest pain shortness of breath. Related Data Home Medications ?Medication ?Instructions ?Recorded ?Confirmed trazodone 150 mg tablet 150 mg PO ONCE PM PRN insomnia 05/14/25 05/14/25 Previous Rx's ?Medication ?Instructions ?Recorded lorazepam 1 mg tablet 0.5 mg (1/2 x 1 mg) PO BID PRN 02/10/25 anxiety #10 tabs eszopiclone 2 mg tablet 2 mg PO BEDTIME PRN insomnia #30 03/16/25 tabs lithium carbonate 300 mg capsule 900 mg (3 x 300 mg) PO .QHS #90 03/16/25 caps lurasidone 40 mg tablet 40 mg PO QPM #30 tabs 03/16/25 methylphenidate HCl 20 mg tablet 20 mg PO BID #60 tabs 05/13/25 Allergies Allergy/AdvReac Type Severity Reaction Status Date / Time amphetamine (From Adderall) Allergy Intermediate Verified 05/14/25 15:34 dextroamphetamine (From Allergy Intermediate Verified 05/14/25 15:34 Adderall) Patient History Medical History (Updated 05/14/25 @ 20:24 by Rock Phipps MD) Grief SERGO (generalized anxiety disorder) Bipolar I disorder, current or most recent episode hypomanic with mixed features On valproic acid therapy Low back pain radiating to left leg Nightmares Tobacco use disorder, moderate, in early remission Tobacco use disorder Ventral hernia Alcohol use disorder Asthma Ovarian cyst (~1986) Anxiety (~2006) Chickenpox (~1974) Surgical History Hx of hernia repair (04/07/19) Anesthesia Status post ORIF of fracture of ankle (~1993) Tubal (~1990) History of removal of ovarian cyst (~1985) Status post delivery (~1991) Status post delivery (~1986) Family History Father Age: 93 Alcoholism Grandfather No problems noted. Grandmother No problems noted. Grandfather No problems noted. Grandmother No problems noted. Social History marital status: unknown household members: family occupational status: previously employed Smoking Status: Current every day smoker Tobacco: How many years used: 20 quit status: considering quitting alcohol intake: current (3 beers per day ) substance use type: former substance user (Quit in 30s), heroin (Former, quit in 30s) and methamphetamine (former, quit in 30s) Smoking Status: Current every day smoker tobacco type: cigarettes alcohol intake frequency: a few times a week Alcohol type: beer Exam Narrative Exam Narrative: GENERAL: Well-developed patient, in mild distress. HEAD: Atraumatic. Normocephalic. EYES: Pupils equal round and reactive. Extraocular motions intact. No scleral icterus. No injection or drainage. ENT: Nose without bleeding, purulent drainage. Throat without erythema, tonsillar hypertrophy or exudate. Airway patent. NECK: Trachea midline. Non tender CARDIOVASCULAR: Regular rate and rhythm without murmurs, gallops, or rubs. RESPIRATORY: Clear to auscultation. Breath sounds equal bilaterally. No wheezes, rales, or rhonchi. GASTROINTESTINAL: Abdomen soft, non-tender, nondistended. EXTREMITIES: No edema or joint tenderness. BACK: Nontender without deformity or crepitance. No flank tenderness. NEURO: AOx3. Motor functions grossly nonfocal. SKIN: No rash or erythema of visible areas Initial Vital Signs Initial Vital Signs: Vital Signs Temperature 98.2 F 05/14/25 15:29 Pulse Rate 64 05/14/25 15:29 Respiratory Rate 18 05/14/25 15:29 Blood Pressure 133/62 05/14/25 15:29 Pulse Oximetry 100 05/14/25 15:29 Oxygen Delivery Method Room Air 05/14/25 15:29 Scores HEART Score Heart Score history: Slightly Suspicious Heart Score EKG: Normal Heart Score Age: 45-64 years old Heart Score risk factors: No known risk factors Heart Score troponin: < or = to normal limit Heart Score Total: 1 Course Orders Ordered: Discontinued Medications Aspirin (Aspirin 81 Mg Chew Tab) 324 mg PO NOW ONE Stop: 05/14/25 15:35 Last Admin: 05/14/25 16:10 Dose: 324 mg Documented By: TELLO Famotidine (Famotidine 20 Mg/2 Ml Vial) 20 mg IV NOW [place] Last Admin: 05/14/25 19:01 Dose: 20 mg Documented By: TELLO Lactulose (Lactulose 20 Gm/30 Ml Solution) 20 gm PO NOW ONE Stop: 05/14/25 18:38 Last Admin: 05/14/25 19:01 Dose: 20 gm Documented By: TELLO Vital Signs Vital signs: Vital Signs - 8 hr 05/14/25 15:29 05/14/25 16:06 05/14/25 16:07 Temperature 98.2 F Pulse Rate 64 62 Respiratory Rate 18 Blood Pressure 133/62 137/65 Pulse Oximetry 100 100 Oxygen Delivery Method Room Air 05/14/25 16:07 05/14/25 16:30 05/14/25 16:30 Temperature Pulse Rate 62 51 L Respiratory Rate Blood Pressure 134/64 Pulse Oximetry 100 100 Oxygen Delivery Method MDM - Chest Pain Lab Data Attestation: I reviewed the patient's lab results. Lab results narrative: White blood cell count 6400, hemoglobin 13.8, platelets adequate. Glucose 84. Normal renal function, serum CO2, electrolytes. Mild transaminitis, T bili and alkaline phosphatase normal. Lipase normal. Troponin negative/unmeasurable x2 interval sets. 05/14/25 15:50 05/14/25 15:50 Labs: Lab Results 05/14/25 05/14/25 Range/Units 15:50 19:02 WBC 6.4 (4.5-11.0) X10^3/uL RBC 4.18 (4.0-5.2) X10^6/uL Hgb 13.8 (12.0-16.0) g/dL Hct 41.5 (36-46) % MCV 99.2 (80-100) fL MCH 33.1 (26-34) PG MCHC 33.3 (30-36) % RDW 12.7 (11.6-14.8) % Plt Count 201 (150-400) X10^3/uL Neut % (Auto) 47.9 L (50-75) % Lymph % (Auto) 38.8 (25-40) % [place] % (Auto) 9.7 (3-14) % Eos % (Auto) 3.1 (2-4) % Baso % (Auto) 0.5 (0-2) % Neut # (Auto) 3000 (6862-4894) /uL Lymph # (Auto) 2500 (6712-8170) /uL [place] # (Auto) 600 (0-900) /uL Eos # (Auto) 200 (0-450) /uL Baso # (Auto) 0 (0-100) /uL PT 11.2 (9.4-12.5) SECONDS INR 1.0 (0.9-1.3) APTT 27 (25.1-36.5) SECONDS Sodium 140 (137-145) mmol/L Potassium 4.3 (3.4-5.1) mmol/L Chloride 104 (98-107) mmol/L Carbon Dioxide 27 (22-32) mmol/L BUN 6 L (7-17) mg/dL Creatinine 0.65 (0.52-1.04) mg/dL Estimated GFR > 60 (>60) mL/min BUN/Creatinine Ratio 9.2 (6-22) Glucose 84 (70-99) mg/dL Calcium 9.3 (8.4-10.2) mg/dL Magnesium 2.5 H (1.6-2.3) mg/dL Total Bilirubin 0.5 (0.2-1.3) mg/dL AST 43 H (14-36) IU/L ALT 40 H (<35) IU/L Alkaline Phosphatase 60 (38-126) U/L Total Creatine Kinase 79 (30-135) U/L Troponin I < 0.012 < 0.012 (0.01-0.034) ng/mL NT-Pro-B Natriuret Pep 134 H (<125) pg/mL Total Protein 7.3 (6.3-8.2) g/dL Albumin 4.4 (3.5-5.0) g/dL Globulin 2.9 (1.7-4.1) g/dL Albumin/Globulin Ratio 1.5 (1.0-2.8) Lipase 39 (23-300) U/L [place] 0.6 (0.6-1.2) mmol/L Imaging Data Chest x-ray: Radiologist's Impression: [address] [address] XRay Report Signed Patient: Nury Salmeron MR#: [id number] : 1965 Acct:[id number] Age/Sex: 59 / F Date of Service: 05/14/25 Loc: ED Accession Number: [id number] Procedure: XR chest 1V Ordering Provider: Judith Maciel D.O. PROCEDURE: XR CHEST 1V INDICATIONS: Chest Pain TECHNIQUE: One view of the chest was acquired. COMPARISON: [facility], CR, XR CHEST 2V, 05/04/2020, 15:55. [facility], CR, XR CHEST 1V, 06/07/2020, 16:02. [facility], CR, XR CHEST 1V, 11/19/2021, 14:33. FINDINGS: Surgical changes and devices: None. Lungs and pleura: Lungs are clear. No pleural effusions or pneumothorax. Mediastinum: Mediastinal contours appear normal. Heart size is normal. Bones and chest wall: No suspicious bony lesions. Age-appropriate bony degenerative changes are seen. Overlying soft tissues appear unremarkable. IMPRESSION: Normal portable chest for age. Dictated by: Kash Santos M.D. on 05/14/2025 at 15:20 Approved by: Kash Santos M.D. on 05/14/2025 at 15:20 CT angio chest abdomen and pelvis: Radiologist's Impression: [address] [address] [address] Scan Report Signed Patient: Nury Salmeron MR#: [id number] : 1965 Acct:[id number] Age/Sex: 59 / F Date of Service: 05/14/25 Loc: ED Accession Number: [id number] Procedure: CT angio chest abdomen pelvis Ordering Provider: Rock Phipps MD PROCEDURE: CT ANGIO CHEST ABDOMEN PELVIS INDICATIONS: chest abd back pain TECHNIQUE: Precontrast 5 mm thick sections acquired from the lung apices to the iliac crests. After the administration of intravenous contrast, 2.5 mm thick sections again acquired from the lung apices to the iliac crests. Maximum intensity projection (MIP) oblique sagittal and coronal reformats were then acquired. For radiation dose reduction, the following was used: automated exposure control. COMPARISON: None. FINDINGS: Image quality: Diagnostic. AORTA: No aortic aneurysm. No acute aortic syndrome. CHEST: Lower Neck: No enlarged lymph nodes. Thyroid: No thyroid nodules which require sonographic evaluation. Axillae: No enlarged lymph nodes. Chest Wall: Unremarkable. Lungs and Pleura: No pneumothorax or pleural effusions. No consolidation or suspicious nodules. Heart: Heart size is normal. No pericardial effusion. Thoracic Vessels: Pulmonary arteries demonstrate normal size. Mediastinum and Janet: No enlarged lymph nodes. Esophagus: No wall thickening. No hiatal hernia. ABDOMEN: Liver: No solid mass. Gallbladder: Small gallstone. Biliary ducts: No biliary dilation. Pancreas: No ductal dilation. Spleen: Size is within normal limits. Adrenal Glands: No adrenal nodules. Kidneys and Ureters: No hydronephrosis. No kidney stone. No solid mass. No complex renal cystic lesion which requires follow up. Stomach and Bowel: Normal colonic caliber, without significant wall thickening. Liquid stool contents in the distal colon and rectum. Normal appendix. Peritoneum: No abnormal intraperitoneal fluid. No free air. Ventral Wall: No hernia. Abdominal Nodes: No retroperitoneal or mesenteric adenopathy by size criteria. Vessels: Inferior vena cava is normal in size. PELVIS: Pelvic Organs: Anteverted uterus. Bladder: Only partially distended. No stone. Pelvic Nodes: No enlarged lymph nodes. Miscellaneous: No inguinal hernias are seen. Bones: No suspicious osseous lesion. IMPRESSION: 1. No aortic dissection. No pulmonary embolism. 2. No acute airspace opacity. 3. Liquid stool contents in the distal colon and rectum suggesting diarrhea. 4. No hydronephrosis. Normal appendix. Small gallstone. Dictated by: Gael Palacios M.D. on 05/14/2025 at 19:08 Approved by: Gael Palacios M.D. on 05/14/2025 at 19:19 ECG Data Attestation: I personally reviewed and interpreted this ECG as follows: Interpretation: 1539, normal sinus rhythm with a rate of 60, no obvious ST segment elevation or depression changes. SD 154, QRS 78, QTC 422. MDM Narrative Medical decision making narrative: 59-year-old female with history of bipolar disorder has complains of abdominal discomfort, also left anterior chest pain resolved, no known history of CAD. Afebrile, sirs screen negative. EKG, chest x-ray, labs pending. HEART Score 1, low risk. EKG without obvious ischemic changes. Chest x-ray no acute changes. See radiology report. Lab data: White blood cell count 6400, hemoglobin 13.8, platelets adequate. Glucose 84. Normal renal function, serum CO2, electrolytes. Mild transaminitis, T bili and alkaline phosphatase normal. Lipase normal. Troponin negative/unmeasurable x2 interval sets. Patient with abdominal pain, back pain, chest pain. CTA chest abdomen pelvis ordered. Patient agreeable. CT angiogram chest abdomen and pelvis. Impressions: ?1. No aortic dissection. No pulmonary embolism. 2. No acute airspace opacity. 3. Liquid stool contents in the distal colon and rectum suggesting diarrhea. 4. No hydronephrosis. Normal appendix. Small gallstone. See radiology report. Patient informed of results, we will discharged home. Follow up with PCP if symptoms persist. Further workup as an outpatient for now. Discharge Plan Departure Patient Disposition: Home Clinical Impression: Abdominal pain, Chest pain Activity Restrictions/Additional Instructions: Abdominal pain with use of laxatives, also some chest discomfort that resolved prior to arrival without specific treatment. Labs screening unremarkable. EKG and blood testing not suggestive of heart attack at this time. Chest x-ray negative. CT angiogram imaging of the chest abdomen and pelvis showed no acute chest findings, no obstructive abdominal findings, liquid stool noted throughout the colon but no obstructive pattern or significant constipation solid stool noted. You might be having loose stool based on the imaging found on your CT scan today. Regarding your chest discomfort, further workup as an outpatient for now. Recheck symptoms with your regular doctor in the next couple of days. Return to this/nearest emergency department for any change worsening symptoms or any concerns prior. Prescriptions: No Action trazodone 150 mg tablet 150 mg PO ONCE PM PRN (Reason: insomnia) lithium carbonate 300 mg capsule 900 mg PO .QHS Qty: 90 2RF eszopiclone 2 mg tablet 2 mg PO BEDTIME PRN (Reason: insomnia ) Qty: 30 1RF lurasidone 40 mg tablet 40 mg PO QPM Qty: 30 2RF Rx Instructions: must administer with food (at least 350 calories) lorazepam 1 mg tablet 0.5 mg PO BID PRN (Reason: anxiety) Qty: 10 0RF methylphenidate HCl 20 mg tablet 20 mg PO BID Qty: 60 0RF Referrals: Veronica Berry DO [Primary Care Provider, Medical] Stand Alone Forms: Patient Portal/API
--- NOTE | 2025-05-14 18:18 | DI.CT.S_ITS ---
PROCEDURE: CT ANGIO CHEST ABDOMEN PELVIS INDICATIONS: chest abd back pain TECHNIQUE: Precontrast 5 mm thick sections acquired from the lung apices to the iliac crests. After the administration of intravenous contrast, 2.5 mm thick sections again acquired from the lung apices to the iliac crests. Maximum intensity projection (MIP) oblique sagittal and coronal reformats were then acquired. For radiation dose reduction, the following was used: automated exposure control. COMPARISON: None. FINDINGS: Image quality: Diagnostic. AORTA: No aortic aneurysm. No acute aortic syndrome. CHEST: Lower Neck: No enlarged lymph nodes. Thyroid: No thyroid nodules which require sonographic evaluation. Axillae: No enlarged lymph nodes. Chest Wall: Unremarkable. Lungs and Pleura: No pneumothorax or pleural effusions. No consolidation or suspicious nodules. Heart: Heart size is normal. No pericardial effusion. Thoracic Vessels: Pulmonary arteries demonstrate normal size. Mediastinum and Janet: No enlarged lymph nodes. Esophagus: No wall thickening. No hiatal hernia. ABDOMEN: Liver: No solid mass. Gallbladder: Small gallstone. Biliary ducts: No biliary dilation. Pancreas: No ductal dilation. Spleen: Size is within normal limits. Adrenal Glands: No adrenal nodules. Kidneys and Ureters: No hydronephrosis. No kidney stone. No solid mass. No complex renal cystic lesion which requires follow up. Stomach and Bowel: Normal colonic caliber, without significant wall thickening. Liquid stool contents in the distal colon and rectum. Normal appendix. Peritoneum: No abnormal intraperitoneal fluid. No free air. Ventral Wall: No hernia. Abdominal Nodes: No retroperitoneal or mesenteric adenopathy by size criteria. Vessels: Inferior vena cava is normal in size. PELVIS: Pelvic Organs: Anteverted uterus. Bladder: Only partially distended. No stone. Pelvic Nodes: No enlarged lymph nodes. Miscellaneous: No inguinal hernias are seen. Bones: No suspicious osseous lesion. IMPRESSION: 1. No aortic dissection. No pulmonary embolism. 2. No acute airspace opacity. 3. Liquid stool contents in the distal colon and rectum suggesting diarrhea. 4. No hydronephrosis. Normal appendix. Small gallstone. Dictated by: Gael Palacios M.D. on 05/14/2025 at 19:08 Approved by: Gael Palacios M.D. on 05/14/2025 at 19:19
[2025-05-14 18:46] LABS: Lithium 0.6 mmol/L (0.6-1.2)
--- NOTE | 2025-05-14 18:52 | PC.NURSE ---
Patients IV infiltrated in CT while giving contrast, this RN starts new line in CT scan. This RN applies ice to infiltration site and educates on infiltration
[2025-05-14] MEDS: LACTULOSE 20 GM/30 ML SOLUTION PO (19:01)
[2025-05-14] MEDS: FAMOTIDINE 20 MG/2 ML VIAL IV (19:01)
[2025-05-14 19:46] LABS: Troponin I < 0.012 ng/mL (0.01-0.034)
== END 2025-05-14 20:33 | disposition home or self-care (01) ==
PROVIDERS: Emergency Medicine; Emergency Provider Emergency Medicine; PCP Family Medicine
DX: R10.9 Unspecified abdominal pain (principal); R07.9 Chest pain, unspecified; F17.210 Nicotine dependence, cigarettes, uncomplicated
CPT/HCPCS: 36415; 71045; 71275; 74174; 80053; 80178; 82550; 83690; 83735; 83880; 84484; 85025; 85610; 85730; 93005; 96374; 99284; Q9967